=== PATIENT | female | born 1935 | race Caucasian/White ===

== ENCOUNTER 2017-11-04 20:24 | Emergency (ER) | payer MEDICARE, BC ==
[2017-11-04] MEDS ORDERED: SODIUM CHLORIDE 0.9% 500 ML IV STA (20:40)
[2017-11-04] MEDS ORDERED: DILTIAZEM 50 MG in SODIUM CHLORIDE 0.9% 40 ML IV STA (20:43)
--- NOTE | 2017-11-04 20:57 | ED ---
General Adult HPI - General Chief complaint: Arrhythmia/Palpitations Stated complaint: Afib Time Seen by Provider: 11/04/17 20:29 Source: patient, EMS, RN notes reviewed Mode of arrival: EMS Limitations: no limitations - History of Present Illness Initial comments: 82-year-old female with history of atrial fibrillation presents with generalized weakness and one episode of nausea and vomiting. She denies chest pain or shortness of breath. She is transported by EMS and is found be in atrial fibrillation with RVR. She states she had a pacemaker placed one to 2 months ago at [facility]. Her medications have recently been adjusted. She was previously on long-acting metoprolol and was switched to metoprolol tartrate 50 mg twice a day. She is currently on Coumadin. She has been taking her medications as prescribed. Patient denies diarrhea. Denies dysuria. Denies cough or fever. - Related Data Home Medications Medication Instructions Recorded Confirmed Atorvastatin [Lipitor] 40 mg PO HS 11/04/17 11/04/17 Digoxin [Lanoxin] 125 mcg PO DAILY 11/04/17 11/04/17 Diltiazem Cd [Cardizem Cd] 120 mg PO DAILY 11/04/17 11/04/17 Fenofibrate 54 mg PO DAILY 11/04/17 11/04/17 Furosemide [Lasix] 20 mg PO DAILY 11/04/17 11/04/17 Levothyroxine Sodium [Synthroid] 75 mcg PO DAILY 11/04/17 11/04/17 Metoprolol Tartrate [Lopressor] 50 mg PO BID 11/04/17 11/04/17 Quinapril HCl [Accupril] 20 mg PO DAILY 11/04/17 11/04/17 Spironolactone [Aldactone] 25 mg PO DAILY 11/04/17 11/04/17 Warfarin [Coumadin] 5 mg PO DAILY 11/04/17 11/04/17 metFORMIN HCL [Glucophage] 500 mg PO BID 11/04/17 11/04/17 Allergies Allergy/AdvReac Type Severity Reaction Status Date / Time No Known Allergies Allergy Verified 11/04/17 20:54 Review of Systems ROS Statement: Those systems with pertinent positive or pertinent negative responses have been documented in the HPI. ROS Other: All systems not noted in ROS Statement are negative. Past Medical History Past Medical History: Atrial Fibrillation, Diabetes Mellitus, Hypertension, Thyroid Disorder History of Any Multi-Drug Resistant Organisms: None Reported Past Surgical History: Pacemaker Past Psychological History: No Psychological Hx Reported Smoking Status: Never smoker Past Alcohol Use History: None Reported Past Drug Use History: None Reported General Exam Limitations: no limitations General appearance: alert, in no apparent distress Head exam: Present: atraumatic, normocephalic Eye exam: Present: normal appearance, PERRL, EOMI ENT exam: Present: normal exam Neck exam: Present: normal inspection. Absent: tenderness, meningismus Respiratory exam: Present: normal lung sounds bilaterally. Absent: respiratory distress Cardiovascular Exam: Present: tachycardia, irregular rhythm GI/Abdominal exam: Present: soft. Absent: distended, tenderness Extremities exam: Present: normal inspection, pedal edema (trace) Neurological exam: Present: alert, oriented X3, CN II-XII intact. Absent: motor sensory deficit Psychiatric exam: Present: normal affect, normal mood Skin exam: Present: warm, dry, intact. Absent: cyanosis, diaphoretic Course Vital Signs 11/04/17 11/04/17 11/04/17 20:38 21:22 22:19 Temperature 97.6 F Pulse Rate 154 H 150 H 136 H Pulse Rate [ 144 H [employer] ] Respiratory 22 20 18 Rate Blood Pressure 119/60 155/108 150/83 O2 Sat by Pulse 95 97 95 Oximetry 11/04/17 23:00 Temperature Pulse Rate 112 H Pulse Rate [ [employer] ] Respiratory 18 Rate Blood Pressure 97/67 O2 Sat by Pulse 96 Oximetry EKG Findings - EKG Comments: EKG Findings:: EKG: Atrial fibrillation with RVR, left axis deviation, left bundle branch block, ventricular rate of 149, QRS duration 152, QTC 500 Medical Decision Making - Medical Decision Making 82-year-old female presenting with nausea vomiting and generalized weakness. Found to be in A. fib with RVR. EKG shows left bundle branch block, this is discussed with ER physician at [facility], she does have history of left bundle branch block. She does have history of atrial fibrillation and had recent pacemaker placed at [facility]. She is started on IV Cardizem for rate control. Laboratory studies obtained. Patient has elevated white blood cell count of 14.3, hemoglobin is 12.8. INR is greater than 10 which is supratherapeutic. She is given IV vitamin K. Creatinine 1.9 with no known baseline. AST and ALT both significantly elevated at 2700 and 1800. Total bili is mildly elevated 1.9. Ultrasound is obtained, this shows normal common bile duct with no obstruction. There is mild gallbladder wall thickening with echogenic foci within the gallbladder, no stones. Ultrasound Mcintosh's is negative, there is no pericholecystic fluid. Transaminitis may be secondary to poor perfusion due to her atrial fibrillation with RVR. These levels be trended. Troponin is elevated at 0.109 which is likely secondary to demand ischemia and poor kidney function in the setting of elevated BUN/creatinine. 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 She may also require gastro-enterology for transaminitis. Diagnosis: Atrial fibrillation with RVR, transaminitis, supratherapeutic INR, troponin elevation. - Lab Data Result diagrams: 11/04/17 21:05 11/04/17 21:05 Lab Results 11/04/17 11/04/17 11/04/17 Range/Units 21:05 21:05 21:05 WBC 14.3 H (3.8-10.6) k/uL RBC 4.33 (3.80-5.40) m/uL Hgb 12.8 (11.4-16.0) gm/dL Hct 39.3 (34.0-46.0) % MCV 90.6 (80.0-100.0) fL MCH 29.5 (25.0-35.0) pg MCHC 32.6 (31.0-37.0) g/dL RDW 14.4 (11.5-15.5) % Plt Count 264 (150-450) k/uL Neutrophils % 81 % Lymphocytes % 10 % Monocytes % 8 % Eosinophils % 0 % Basophils % 0 % Neutrophils # 11.6 H (1.3-7.7) k/uL Lymphocytes # 1.4 (1.0-4.8) k/uL Monocytes # 1.1 H (0-1.0) k/uL Eosinophils # 0.0 (0-0.7) k/uL Basophils # 0.0 (0-0.2) k/uL PT (9.0-12.0) sec INR (<1.2) APTT (22.0-30.0) sec Sodium 137 (137-145) mmol/L Potassium 5.2 H (3.5-5.1) mmol/L Chloride 99 (98-107) mmol/L Carbon Dioxide 14 L (22-30) mmol/L Anion Gap 24 mmol/L BUN 79 H (7-17) mg/dL Creatinine 1.90 H (0.52-1.04) mg/dL Est GFR (CKD-EPI)AfAm 28 (>60 ml/min/1.73 sqM) Est GFR (CKD-EPI)NonAf 24 (>60 ml/min/1.73 sqM) Glucose 168 H (74-99) mg/dL Calcium 9.5 (8.4-10.2) mg/dL Magnesium 2.4 H (1.6-2.3) mg/dL Total Bilirubin 1.9 H (0.2-1.3) mg/dL AST 2717 H (14-36) U/L ALT 1816 H (9-52) U/L Alkaline Phosphatase 71 (38-126) U/L Total Creatine Kinase 52 (30-135) U/L CK-MB (CK-2) 1.6 (0.0-2.4) ng/mL CK-MB (CK-2) Rel Index 3.1 Troponin I 0.109 H* (0.000-0.034) ng/mL Total Protein 6.1 L (6.3-8.2) g/dL Albumin 3.6 (3.5-5.0) g/dL Lipase (23-300) U/L 11/04/17 11/04/17 Range/Units 21:05 21:05 WBC (3.8-10.6) k/uL RBC (3.80-5.40) m/uL Hgb (11.4-16.0) gm/dL Hct (34.0-46.0) % MCV (80.0-100.0) fL MCH (25.0-35.0) pg MCHC (31.0-37.0) g/dL RDW (11.5-15.5) % Plt Count (150-450) k/uL Neutrophils % % Lymphocytes % % Monocytes % % Eosinophils % % Basophils % % Neutrophils # (1.3-7.7) k/uL Lymphocytes # (1.0-4.8) k/uL Monocytes # (0-1.0) k/uL Eosinophils # (0-0.7) k/uL Basophils # (0-0.2) k/uL PT >130.0 H (9.0-12.0) sec INR >10.0 H* (<1.2) APTT 47.9 H (22.0-30.0) sec Sodium (137-145) mmol/L Potassium (3.5-5.1) mmol/L Chloride (98-107) mmol/L Carbon Dioxide (22-30) mmol/L Anion Gap mmol/L BUN (7-17) mg/dL Creatinine (0.52-1.04) mg/dL Est GFR (CKD-EPI)AfAm (>60 ml/min/1.73 sqM) Est GFR (CKD-EPI)NonAf (>60 ml/min/1.73 sqM) Glucose (74-99) mg/dL Calcium (8.4-10.2) mg/dL Magnesium (1.6-2.3) mg/dL Total Bilirubin (0.2-1.3) mg/dL AST (14-36) U/L ALT (9-52) U/L Alkaline Phosphatase (38-126) U/L Total Creatine Kinase (30-135) U/L CK-MB (CK-2) (0.0-2.4) ng/mL CK-MB (CK-2) Rel Index Troponin I (0.000-0.034) ng/mL Total Protein (6.3-8.2) g/dL Albumin (3.5-5.0) g/dL Lipase 109 (23-300) U/L Critical Care Time Critical Care Time: Yes Total Critical Care Time: 35 Disposition Clinical Impression: Atrial fibrillation with RVR, Transaminitis, Supratherapeutic INR Disposition: OTHER INSTITUTION NOT DEFINED Condition: Serious Is patient prescribed a controlled substance at d/c from ED?: No Referrals: Leann Soto MD [Primary Care Provider] - 1-2 days Time of Disposition: 23:40 - Out of Hospital Transfer - Req. Specs Out of Hospital Transfer - Requested Specifics: Other Emergency Center ( Transferred to [facility], accepting physician Dr. Avila)
[2017-11-04 21:13] LABS: Basophils % (A) 0 %; Eosinophils % (A) 0 %; HCT 39.3 % (34.0-46.0); HGB 12.8 gm/dL (11.4-16.0); Lymphocytes # (A) 1.4 k/uL (1.0-4.8); Lymphocytes % (A) 10 %; MCH 29.5 pg (25.0-35.0); MCHC 32.6 g/dL (31.0-37.0); MCV 90.6 fL (80.0-100.0); Mean Platelet Volume 9.2; Monocytes # (A) 1.1 k/uL (0-1.0); Monocytes % (A) 8 %; Neutrophils # (A) 11.6 k/uL (1.3-7.7); Neutrophils % (A) 81 %; Platelet Count 264 k/uL (150-450); RBC 4.33 m/uL (3.80-5.40); RDW 14.4 % (11.5-15.5); WBC 14.3 k/uL (3.8-10.6)
--- NOTE | 2017-11-04 21:21 | XR ---
EXAMINATION TYPE: XR chest 2V DATE OF EXAM: 11/04/2017 COMPARISON: NONE HISTORY: Irregular heart rate TECHNIQUE: Frontal and lateral views of the chest are obtained. FINDINGS: Heart is enlarged. There is prominent vascular congestion. There is blunting of costophren ic angles. There is left axillary pacemaker with the lead tip over the right ventricle. There are sebastien st leads. Thoracic aorta is atheromatous. IMPRESSION: Mild congestive heart failure. Small pleural effusions.
[2017-11-04 21:28] LABS: Partial Thromboplastin Time 47.9 sec (22.0-30.0)
[2017-11-04 21:30] LABS: Albumin 3.6 g/dL (3.5-5.0); Calcium 9.5 mg/dL (8.4-10.2); Magnesium 2.4 mg/dL (1.6-2.3); Potassium 5.2 mmol/L (3.5-5.1); Total Bilirubin 1.9 mg/dL (0.2-1.3); Total Protein 6.1 g/dL (6.3-8.2)
[2017-11-04 21:38] LABS: Creatine Kinase MB 1.6 ng/mL (0.0-2.4)
[2017-11-04 21:39] LABS: Prothrombin Time >130.0 sec (9.0-12.0)
[2017-11-04 21:40] LABS: INR >10.0 (<1.2)
[2017-11-04 21:46] LABS: Troponin I 0.109 ng/mL (0.000-0.034)
[2017-11-04] MEDS ORDERED: PHYTONADIONE 5 MG in SODIUM CHLORIDE 0.9% 50 ML IVPB STA (22:11)
[2017-11-04] MEDS ORDERED: DILTIAZEM 5 MG/1 ML (25ML VIAL) IV STA (22:15)
[2017-11-04 22:19] VITALS: RESP 18
--- NOTE | 2017-11-04 23:00 | US ---
EXAMINATION TYPE: US gallbladder DATE OF EXAM: 11/04/2017 COMPARISON: NONE CLINICAL HISTORY: Pain. Vomiting EXAM MEASUREMENTS: Liver Length: 14.9 cm Gallbladder Wall: 0.4 cm CBD: 0.4 cm Right Kidney: 9.0 x 4.8 x 4.2 cm Pancreas: visualized portions wnl, tail obscured by overlying midline bowel gas Liver: wnl Gallbladder: low level echoes seen within gallbladder, possible sludge, thickened wall at 0.4cm Evidence for sonographic Mcintosh's sign: no CBD: visualized portions wnl, limited by overlying bowel gas Right Kidney: visualized portions wnl, inferior pole limited by overlying bowel gas Right pleural effusion noted IMPRESSION: Mild gallbladder wall thickening with echogenic bile. No gallstones seen. No dilated duct s.
[2017-11-04] MEDS ORDERED: cefTRIAXone IN SWFI 1,000 MG/10 ML SYRINGE IVP STA (23:14)
[2017-11-05 00:01] VITALS: BP 110/70; PULSE 116
[2017-11-05 00:12] VITALS: TEMP 98
== END 2017-11-05 00:13 | disposition other institution (70) ==
LOC: EC 20:24
DX: I48.91 Unspecified atrial fibrillation (principal); R74.0 Nonspecific elevation of levels of transaminase and lactic acid dehydrogenase [LDH]; R79.1 Abnormal coagulation profile; I44.7 Left bundle-branch block, unspecified; I10 Essential (primary) hypertension; E11.9 Type 2 diabetes mellitus without complications; E07.9 Disorder of thyroid, unspecified; Z95.0 Presence of cardiac pacemaker; Z79.01 Long term (current) use of anticoagulants; Z79.84 Long term (current) use of oral hypoglycemic drugs; Z79.899 Other long term (current) drug therapy
CPT/HCPCS: 99291; 96365; 96366 ×2; 96368; 96375; 96376; 96361; 36415; 93005; 80053; 82550; 82553; 83690; 83735; 84484; 85025; 85610; 85730; 83520; 71046; 76705; J3430; J0696

== ENCOUNTER 2018-01-07 23:58 | Emergency (ER) | payer MEDICARE, BC ==
--- NOTE | 2018-01-08 11:22 | XR ---
EXAMINATION TYPE: XR wrist complete RT, XR hand complete RT DATE OF EXAM: 01/08/2018 CLINICAL HISTORY: Fall injury with pain. TECHNIQUE: Frontal, lateral and oblique images of the right hand and wrist are obtained. Additional fourth scaphoid view right wrist is acquired. COMPARISON: None FINDINGS: Demineralization is present which is noted to lower radiographic sensitivity There is no a cute fracture/dislocation evident in the right wrist. Radiocarpal joint space loss is seen. There is mild joint space loss and spurring at base of first metacarpal. The overlying soft tissue appears un remarkable. Images of right hand show demineralization. No acute fracture or dislocation is seen. There is degene rative change of the phalanges with joint space loss and marginal osteophytes most prominent in PIP a nd DIP joints. There is relative sparing of the MCPs. Overlying soft tissue is unremarkable. IMPRESSION: There is no acute fracture or dislocation in the right hand or wrist.
== END 2018-01-08 02:05 | disposition home or self-care (01) ==
LOC: EC 23:58
DX: M25.531 Pain in right wrist (principal); I48.91 Unspecified atrial fibrillation; Z95.0 Presence of cardiac pacemaker; W06.XXXA Fall from bed, initial encounter
CPT/HCPCS: 99283

== ENCOUNTER 2018-02-22 13:00 | Inpatient (IN) | payer MEDICARE, BC ==
[2018-02-22] MEDS ORDERED: FUROSEMIDE 10 MG/ML 4 ML VIAL IV STA (13:04)
--- NOTE | 2018-02-22 13:13 | ED ---
General Adult HPI - General Chief complaint: Shortness of Breath Stated complaint: OSMAN Time Seen by Provider: 02/22/18 13:00 Source: EMS, RN notes reviewed Mode of arrival: EMS Limitations: physical limitation - History of Present Illness Initial comments: This is an 82-year-old female presents emergency Department with a past medical history significant for atrial fibrillation a recent pacemaker placement and congestive heart failure. Patient comes in today because she's more short of breath with any kind of exertion. According to EMS she is in A. fib with rapid ventricular response. Patient states she has no chest pain or palpitations. Patient denies any recent fever chills or cough. Patient states her only symptom is that her shortness of breath is worsening and he is having some increased edema to her legs. Patient denies any abdominal pain patient denies nausea vomiting diarrhea. Patient denies headache patient denies numbness weakness. Patient denies lightheadedness dizziness or near syncopal episode. - Related Data Home Medications Medication Instructions Recorded Confirmed Levothyroxine Sodium [Synthroid] 75 mcg PO DAILY 11/04/17 02/22/18 Metoprolol Tartrate [Lopressor] 25 mg PO BID 11/04/17 02/22/18 Warfarin [Coumadin] 5 mg PO MOWEFR 11/04/17 02/22/18 Aspirin EC [Ecotrin Low Dose] 81 mg PO DAILY 02/22/18 02/22/18 Atorvastatin [Lipitor] 20 mg PO DAILY 02/22/18 02/22/18 Calcium Carb/Vitamin D3/Vit K1 2 tab PO DAILY 02/22/18 02/22/18 [Citracal Soft Chew] Diltiazem HCl 90 mg PO TID 02/22/18 02/22/18 Furosemide [Lasix] 40 mg PO BID 02/22/18 02/22/18 Potassium Chloride ER [K-Dur 20] 20 meq PO DAILY 02/22/18 02/22/18 Warfarin [Coumadin] 2.5 mg PO SUTUTHSA 02/22/18 02/22/18 Allergies Allergy/AdvReac Type Severity Reaction Status Date / Time No Known Allergies Allergy Verified 02/22/18 13:38 Review of Systems ROS Statement: Those systems with pertinent positive or pertinent negative responses have been documented in the HPI. ROS Other: All systems not noted in ROS Statement are negative. Past Medical History Past Medical History: Atrial Fibrillation, COPD, Diabetes Mellitus, Hypertension , Thyroid Disorder History of Any Multi-Drug Resistant Organisms: None Reported Past Surgical History: Pacemaker Past Psychological History: No Psychological Hx Reported Smoking Status: Never smoker Past Alcohol Use History: None Reported Past Drug Use History: None Reported General Exam - General Exam Comments Initial Comments: GENERAL: Patient is well-developed and well-nourished. Patient is nontoxic and well- hydrated and is in mild distress. ENT: Neck is soft and supple. No significant lymphadenopathy is noted. Oropharynx is clear. Moist mucous membranes. Neck has full range of motion without eliciting any pain. EYES: The sclera were anicteric and conjunctiva were pink and moist. Extraocular movements were intact and pupils were equal round and reactive to light. Eyelids were unremarkable. PULMONARY: Unlabored respirations. Good breath sounds bilaterally. No audible rales rhonchi or wheezing was noted. CARDIOVASCULAR: Patient is tachycardic and irregular. ABDOMEN: Soft and nontender with normal bowel sounds. No palpable organomegaly was noted. There is no palpable pulsatile mass. SKIN: Skin is clear with no lesions or rashes and otherwise unremarkable. NEUROLOGIC: Patient is alert and oriented x3. Cranial nerves II through XII are grossly intact. Motor and sensory are also intact. Normal speech, volume and content. Symmetrical smile. Cerebellar exam grossly intact. MUSCULOSKELETAL: Normal extremities with adequate strength and full range of motion. 2+ edema LYMPHATICS: No significant lymphadenopathy is noted PSYCHIATRIC: Normal psychiatric evaluation. Normal interpersonal interactions appears functionally intact in deals appropriately with others. No signs of depression. No signs of anxiety. Limitations: physical limitation Course Vital Signs 02/22/18 02/22/18 13:01 13:23 Temperature 98.7 F Pulse Rate 128 H 84 Respiratory 18 18 Rate Blood Pressure 106/91 O2 Sat by Pulse 94 L 92 L Oximetry Medical Decision Making - Medical Decision Making EKG shows atrial for ablation with rapid ventricular response at 123 bpm QRS is 148 QT interval 366 QTC is 523. Patient has a left bundle branch block. This was seen on old EKGs. Chest x-ray shows bilateral pleural effusions and pulmonary edema. Patient got Lasix nitro paste emergency department. Patient was also in A. fib with rapid ventricular response but at this time was at 108 beats a minute and so no medicines were given to slow down especially because of blood pressure was a little low. I spoke with the depression agreed to admit the patient admitted the patient to call cardiology I rita Lopez on the floor. - Lab Data Result diagrams: 02/22/18 13:14 02/22/18 13:14 Lab Results 02/22/18 02/22/18 02/22/18 Range/Units 13:14 13:14 13:14 WBC 13.3 H (3.8-10.6) k/uL RBC 4.44 (3.80-5.40) m/uL Hgb 12.0 (11.4-16.0) gm/dL Hct 38.3 (34.0-46.0) % MCV 86.2 (80.0-100.0) fL MCH 27.1 (25.0-35.0) pg MCHC 31.5 (31.0-37.0) g/dL RDW 15.9 H (11.5-15.5) % Plt Count 325 (150-450) k/uL Neutrophils % 75 % Lymphocytes % 17 % Monocytes % 6 % Eosinophils % 0 % Basophils % 1 % Neutrophils # 10.0 H (1.3-7.7) k/uL Lymphocytes # 2.2 (1.0-4.8) k/uL Monocytes # 0.7 (0-1.0) k/uL Eosinophils # 0.1 (0-0.7) k/uL Basophils # 0.1 (0-0.2) k/uL Hypochromasia Slight PT 39.8 H (9.0-12.0) sec INR 4.4 H (<1.2) APTT 32.2 H (22.0-30.0) sec Sodium (137-145) mmol/L Potassium (3.5-5.1) mmol/L Chloride (98-107) mmol/L Carbon Dioxide (22-30) mmol/L Anion Gap mmol/L BUN (7-17) mg/dL Creatinine (0.52-1.04) mg/dL Est GFR (CKD-EPI)AfAm (>60 ml/min/1.73 sqM) Est GFR (CKD-EPI)NonAf (>60 ml/min/1.73 sqM) Glucose (74-99) mg/dL Calcium (8.4-10.2) mg/dL Magnesium (1.6-2.3) mg/dL Total Bilirubin (0.2-1.3) mg/dL AST (14-36) U/L ALT (9-52) U/L Alkaline Phosphatase (38-126) U/L NT-Pro-B Natriuret Pep 6020 pg/mL Total Protein (6.3-8.2) g/dL Albumin (3.5-5.0) g/dL 02/22/18 Range/Units 13:14 WBC (3.8-10.6) k/uL RBC (3.80-5.40) m/uL Hgb (11.4-16.0) gm/dL Hct (34.0-46.0) % MCV (80.0-100.0) fL MCH (25.0-35.0) pg MCHC (31.0-37.0) g/dL RDW (11.5-15.5) % Plt Count (150-450) k/uL Neutrophils % % Lymphocytes % % Monocytes % % Eosinophils % % Basophils % % Neutrophils # (1.3-7.7) k/uL Lymphocytes # (1.0-4.8) k/uL Monocytes # (0-1.0) k/uL Eosinophils # (0-0.7) k/uL Basophils # (0-0.2) k/uL Hypochromasia PT (9.0-12.0) sec INR (<1.2) APTT (22.0-30.0) sec Sodium 139 (137-145) mmol/L Potassium 4.6 (3.5-5.1) mmol/L Chloride 101 (98-107) mmol/L Carbon Dioxide 29 (22-30) mmol/L Anion Gap 9 mmol/L BUN 30 H (7-17) mg/dL Creatinine 0.82 (0.52-1.04) mg/dL Est GFR (CKD-EPI)AfAm 76 (>60 ml/min/1.73 sqM) Est GFR (CKD-EPI)NonAf 66 (>60 ml/min/1.73 sqM) Glucose 173 H (74-99) mg/dL Calcium 9.5 (8.4-10.2) mg/dL Magnesium 1.9 (1.6-2.3) mg/dL Total Bilirubin 0.7 (0.2-1.3) mg/dL AST 34 (14-36) U/L ALT 30 (9-52) U/L Alkaline Phosphatase 92 (38-126) U/L NT-Pro-B Natriuret Pep pg/mL Total Protein 6.4 (6.3-8.2) g/dL Albumin 3.2 L (3.5-5.0) g/dL Critical Care Time Critical Care Time: Yes Total Critical Care Time: 35 Disposition Clinical Impression: Acute pulmonary edema Disposition: ADMITTED IP TO THIS HOSP Referrals: Leann Soto MD [Primary Care Provider] - 1-2 days Time of Disposition: 13:52
[2018-02-22 13:25] LABS: Basophils # (A) 0.1 k/uL (0-0.2); Basophils % (A) 1 %; Eosinophils # (A) 0.1 k/uL (0-0.7); Eosinophils % (A) 0 %; HCT 38.3 % (34.0-46.0); Hypochromasia Slight; Lymphocytes # (A) 2.2 k/uL (1.0-4.8); Lymphocytes % (A) 17 %; MCH 27.1 pg (25.0-35.0); MCHC 31.5 g/dL (31.0-37.0); MCV 86.2 fL (80.0-100.0); Mean Platelet Volume 8.4; Monocytes # (A) 0.7 k/uL (0-1.0); Monocytes % (A) 6 %; Neutrophils % (A) 75 %; Platelet Count 325 k/uL (150-450); RBC 4.44 m/uL (3.80-5.40); RDW 15.9 % (11.5-15.5); WBC 13.3 k/uL (3.8-10.6)
[2018-02-22 13:34] LABS: INR 4.4 (<1.2); Partial Thromboplastin Time 32.2 sec (22.0-30.0); Prothrombin Time 39.8 sec (9.0-12.0)
[2018-02-22 13:49] LABS: Albumin 3.2 g/dL (3.5-5.0); Calcium 9.5 mg/dL (8.4-10.2); Magnesium 1.9 mg/dL (1.6-2.3); Potassium 4.6 mmol/L (3.5-5.1); Total Bilirubin 0.7 mg/dL (0.2-1.3); Total Protein 6.4 g/dL (6.3-8.2)
[2018-02-22] MEDS ORDERED: NITROGLYCERIN OINT 1 INCH/GM PACKET TOPICAL STA (13:50)
[2018-02-22] MEDS ORDERED: ASPIRIN 325 MG TAB PO STA (13:52)
[2018-02-22] MEDS ORDERED: FUROSEMIDE 10 MG/ML 4 ML VIAL IV SCH (14:00)
--- NOTE | 2018-02-22 14:16 | XR ---
EXAMINATION TYPE: XR chest 2V DATE OF EXAM: 02/22/2018 HISTORY: difficulty breathing. REFERENCE: Previous study dated 11/04/2017. FINDINGS: There is a unipolar pacemaker place on the left. There are large, bilateral effusions. There is vascular congestion and interstitial change. Heart siz e is obscured. IMPRESSION: FINDINGS CONSISTENT WITH CONGESTIVE HEART FAILURE WITH CONCOMITANT BILATERAL EFFUSIONS.
[2018-02-22 14:23] LABS: Creatine Kinase MB 0.9 ng/mL (0.0-2.4)
[2018-02-22 14:24] LABS: Troponin I 0.059 ng/mL (0.000-0.034)
[2018-02-22] MEDS ORDERED: MELATONIN 3 MG TABLET PO PRN (16:14)
[2018-02-22] MEDS ORDERED: LORazepam 0.5 MG TAB PO PRN (16:14)
[2018-02-22] MEDS ORDERED: LACTULOSE 20 GM/30 ML CUP PO PRN (16:14)
[2018-02-22] MEDS ORDERED: MAGNESIUM HYDROXIDE 2,400 MG/10 ML CUP PO PRN (16:14)
[2018-02-22] MEDS ORDERED: ONDANSETRON 4 MG/2 ML VIAL IVP PRN (16:14)
[2018-02-22] MEDS ORDERED: NITROGLYCERIN OINT 1 INCH/GM PACKET TOPICAL SCH (18:00)
[2018-02-22 18:04] LABS: Glucose,Whole Blood 174 mg/dL (75-99)
[2018-02-22] MEDS: POTASSIUM CHLORIDE ER 20 MEQ TAB.ER PO SCH (18:27)
[2018-02-22] MEDS: DILTIAZEM ORAL 30 MG TAB PO SCH ×2 (18:27→21:06)
--- NOTE | 2018-02-22 21:01 | HP ---
HISTORY AND PHYSICAL DATE OF ADMISSION: 02/22/2018 DATE OF SERVICE: 02/22/2018 PRESENTING COMPLAINT: Short of breath. HISTORY OF PRESENTING COMPLAINT: A very pleasant, 82-year-old patient who follows with Dr. Leann Soto. The patient follows with Cardiology, Dr. Mccall. The patient not too long ago had a permanent pacemaker placed. Chronic stable medical conditions include diabetes, hypertension, hypothyroid. The patient about a month ago had a right wrist fracture for which she has a brace in place. Overnight the patient became short of breath, decided to come. Has got a cough, some clear sputum. No fever. No chills. No edema. Tired, run down. The patient is found to be in pulmonary edema, started on IV Lasix. Also found to be in atrial fibrillation with rapid ventricular rate. Cardiology was consulted for the same. REVIEW OF SYSTEMS: Constitutional: Tired. HEENT: Decreased hearing. Respiratory: As above. Cardiovascular: As above. Gastrointestinal: None. Genitourinary: None. Musculoskeletal: None. Dermatologic: None. Hematologic: None. Lymphatic: None. Psychiatry: None. Neurological: None. PAST MEDICAL HISTORY: Atrial fibrillation, diabetes, hypertension, hypothyroid. PAST SURGICAL HISTORY: Permanent pacemaker. SOCIAL HISTORY: Does not smoke or drink alcohol. Lives with sister. FAMILY HISTORY: Reviewed, noncontributory to presentation. HOME MEDICATIONS: 1. Coumadin 2.5 mg on Friday, Friday, , Friday and 5 mg on Friday, Friday and Friday. 2. Potassium 20 mEq a day. 3. Lopressor 25 p.o. b.i.d. 4. Synthroid 75 mcg a day. 5. Lasix 40 mg b.i.d. 6. Cardizem 90 mg t.i.d. 7. Citracal soft chew 2 tablets p.o. daily. 8. Lipitor 40 mg p.o. daily. 9. Aspirin 81 mg p.o. daily. ALLERGIES: None. PHYSICAL EXAMINATION: Temperature 98.7, pulse 128, respiratory 18, blood pressure 106/91, pulse ox 94 percent on room air. Repeat pulse ox 92 percent on 6L GENERAL APPEARANCE: Well built. BMI 30.8. Lying in bed, tired appearing. EYES: Pupils are equal. Conjunctivae normal. HEENT: External nose and ears normal. Oral cavity normal. NECK: JVD possibly raised. Mass not palpable. Respiratory effort increased. LUNGS: Diminished breath sounds, some crackles. CARDIOVASCULAR: Heart sounds regular, no edema. ABDOMEN: Soft, nontender. Liver and spleen not palpable LYMPHATICS: No lymph node palpable in neck or axilla. PSYCHIATRY: Alert and oriented x3. Mood and affect normal. NEUROLOGIC: Pupils equal. Cranial nerves grossly intact. Power and sensation grossly intact. INVESTIGATIONS: White count 13.3, hemoglobin 12. INR 4.4. Potassium 4.6, BUN 30, creatinine 0.82. Troponin 0.059. ProBNP 6020. Chest x-ray shows very significant pulmonary edema. Film was interpreted by me. EKG tracing interpreted by me shows atrial fibrillation with a rapid ventricular rate. ASSESSMENT: 1. Persistent atrial fibrillation with rapid ventricular rate, present on admission. Patient is chronically on Coumadin. 2. Acute congestive heart failure exacerbation with bilateral pulmonary edema, possibly precipitated by atrial fibrillation. 3. Hypothyroidism. 4. Hyperlipidemia. 5. Right wrist fracture, arm in a brace. 6. CODE STATUS IS FULL. PLAN: Patient started on IV Lasix. Will hold Coumadin today. Electrolytes will be followed closely. Cardiology was consulted. Care was discussed with the patient and family at the bedside. Questions were answered. MMODL / IJN: [id number] /
[2018-02-22] MEDS: FUROSEMIDE 10 MG/ML 4 ML VIAL IV SCH (21:06)
[2018-02-22] MEDS: METOPROLOL TARTRATE 25 MG TAB PO SCH (21:06)
[2018-02-22 21:19] LABS: Glucose,Whole Blood 141 mg/dL (75-99)
[2018-02-23 02:22] LABS: Calcium 9.2 mg/dL (8.4-10.2); Potassium 4.2 mmol/L (3.5-5.1)
[2018-02-23] MEDS: FUROSEMIDE 10 MG/ML 4 ML VIAL IV SCH ×2 (06:05→16:13)
[2018-02-23] MEDS: LEVOTHYROXINE 75 MCG TAB PO SCH (06:05)
[2018-02-23] MEDS: POTASSIUM CHLORIDE ER 20 MEQ TAB.ER PO SCH (07:42)
[2018-02-23] MEDS: DILTIAZEM ORAL 30 MG TAB PO SCH (07:42)
[2018-02-23] MEDS: ASPIRIN 81 MG PO SCH (07:42)
[2018-02-23] MEDS: CALCIUM CARB-VIT D 500MG-200UN 1 EACH TAB PO SCH (07:43)
[2018-02-23] MEDS: METOPROLOL TARTRATE 25 MG TAB PO SCH (07:43)
[2018-02-23] MEDS: ATORVASTATIN 20 MG TAB PO SCH (07:43)
[2018-02-23] MEDS ORDERED: ASPIRIN 325 MG TAB PO SCH (09:00)
[2018-02-23 11:18] LABS: Glucose,Whole Blood 226 mg/dL (75-99)
--- NOTE | 2018-02-23 12:13 | P.CNPUL ---
History of Present Illness Consult date: 02/23/18 Reason for consult: dyspnea, pleural effusion Chief complaint: Shortness of breath History of present illness: This is an 82-year-old female patient with known history of congestion heart failure and chronic atrial fibrillation and hypothyroidism and hypertension, presented to the hospital because of exertional dyspnea, orthopnea and increasing lower extremity edema. At the same time the patient was having palpitations and the patient was found to be in atrial fibrillation which is a chronic problem yet she was in rapid ventricular response. No angina. No pleurisy. No hemoptysis. No cough or sputum production. Chest x-ray showed large bilateral pleural effusions. She has a pacemaker in place. No fever. No chills. No impairment of the renal function. She was started on IV Lasix 60 mg every 8 hours and she is already feeling better. She is anticoagulated and her INR is supratherapeutic at 4.4. Renal function is stable. Blood sugars at 226. She is known to have diabetes mellitus. She does have also some degree of troponin leak with troponin levels of 0.09 and 0.08 respectively 2 yet she is free of any chest pain and she is free of any acute ischemic changes on EKG. ProBNP level is 6000. Review of Systems Constitutional: Reports fatigue, Reports weakness Eyes: denies blurred vision, denies bulging eye, denies decreased vision Ears: deny: decreased hearing, ear discharge, earache, tinnitus Ears, nose, mouth and throat: Denies headache, Denies sore throat Cardiovascular: Reports decreased exercise tolerance, Reports dyspnea on exertion, Reports edema, Reports irregular heart beat, Reports shortness of breath Respiratory: Reports dyspnea Gastrointestinal: Denies abdominal pain, Denies diarrhea, Denies nausea, Denies vomiting Genitourinary: Denies dysuria, Denies hematuria Menstruation: Reports as per HPI Musculoskeletal: Reports as per HPI Musculoskeletal: bilateral: ankle swelling, absent: ankle pain, ankle stiffness Integumentary: Denies pruritus, Denies rash Neurological: Denies numbness, Denies weakness Psychiatric: Reports as per HPI Endocrine: Reports as per HPI Hematologic/Lymphatic: Reports as per HPI Allergic/Immunologic: Reports as per HPI Past Medical History Past Medical History: Atrial Fibrillation, Diabetes Mellitus, Hypertension, Thyroid Disorder Additional Past Medical History / Comment(s): Congestive heart failure, pacemaker insertion, diabetes Melitus, hypertension and hypothyroid, chronic hypoxic respiratoprty failure and she is on home O2 4 liter/min, atrial fibrillation, UTI (recent) and she was treated with ABX History of Any Multi-Drug Resistant Organisms: None Reported Past Surgical History: Pacemaker Type of Cardiac Device: Unknown Device Placement Date:: September 2017 Past Psychological History: No Psychological Hx Reported Smoking Status: Never smoker Past Alcohol Use History: None Reported Past Drug Use History: None Reported - Past Family History Mother Family Medical History: Diabetes Mellitus, Renal Disease Father Additional Family Medical History / Comment(s): "Black lung and alcohol." Father worked in the [employer]. Medications and Allergies Home Medications Medication Instructions Recorded Confirmed Type Levothyroxine Sodium [Synthroid] 75 mcg PO DAILY 11/04/17 02/22/18 History Metoprolol Tartrate [Lopressor] 25 mg PO BID 11/04/17 02/22/18 History Warfarin [Coumadin] 5 mg PO MOWEFR 11/04/17 02/22/18 History Aspirin EC [Ecotrin Low Dose] 81 mg PO DAILY 02/22/18 02/22/18 History Atorvastatin [Lipitor] 20 mg PO DAILY 02/22/18 02/22/18 History Calcium Carb/Vitamin D3/Vit K1 2 tab PO DAILY 02/22/18 02/22/18 History [Citracal Soft Chew] Diltiazem HCl 90 mg PO TID 02/22/18 02/22/18 History Furosemide [Lasix] 40 mg PO BID 02/22/18 02/22/18 History Potassium Chloride ER [K-Dur 20] 20 meq PO DAILY 02/22/18 02/22/18 History Warfarin [Coumadin] 2.5 mg PO SUTUTHSA 02/22/18 02/22/18 History Allergies Allergy/AdvReac Type Severity Reaction Status Date / Time No Known Allergies Allergy Verified 02/22/18 13:38 Physical Exam Vitals: Vital Signs Temp Pulse Pulse Resp BP BP Pulse Ox 02/23/18 07:47 90 17 02/23/18 07:30 96.7 F L 90 17 109/75 96 02/23/18 04:00 96 18 129/68 92 L 02/23/18 00:00 97.3 F L 60 16 101/59 92 L 02/22/18 20:00 97.4 F L 91 18 117/64 95 02/22/18 18:14 90 17 02/22/18 17:52 97.9 F 90 17 105/66 02/22/18 17:13 98.3 F 57 L 18 141/91 93 L 02/22/18 13:23 84 18 106/91 92 L 02/22/18 13:01 98.7 F 128 H 18 94 L Intake and Output 02/22/18 02/23/18 02/23/18 22:59 06:59 14:59 Intake Total 250 118 Output Total 600 600 600 Balance -350 -600 -482 Intake: IV 10 Invasive Line 1 10 Oral 240 118 Output: Urine 600 600 600 Other: Voiding Method Bedside Commode Bedside Commode Bedside Commode # Voids 1 1 Weight 85.1 kg 79.2 kg Gen. appearance she is calm and comfortable likely distress. Communicating. No use of accessory muscles of breathing. Head exam was generally normal. There was no scleral icterus or corneal arcus. Mucous membranes were moist. Neck was supple and with jugular venous distension, thyromegaly, or carotid bruits. Carotids were easily palpable bilaterally. There was no adenopathy. The patient has positive jugular venous distention Lungs sounds are diminished bilaterally and there is dullness to percussion the mid in the lower lung carpenter. The pacemaker pocket can be felt over the left anterior chest area. Heart is irregular S1-S2 no significant murmurs appreciated. No radicular heave or thrill. Abdominal exam revealed normal bowel sounds. The abdomen was soft, non-tender, and without masses, organomegaly, or appreciable enlargement of the abdominal aorta. Extremities reveal +1 edema and there is a sinus or clubbing at this point in time. The legs are wrapped with Moy wraps. Neurologically awake and alert and there is no focal logical deficits. Examination of the skin revealed no evidence of significant rashes, suspicious appearing nevi or other concerning lesions. Results - Laboratory Findings CBC and BMP: 02/22/18 13:14 02/23/18 01:10 PT/INR, D-dimer PT 39.8 sec (9.0-12.0) H 02/22/18 13:14 INR 4.4 (<1.2) H 02/22/18 13:14 Abnormal lab findings: Abnormal Labs 09/09/18 09/09/18 09/09/18 13:14 13:14 13:14 WBC 13.3 H RDW 15.9 H Neutrophils # 10.0 H PT 39.8 H INR 4.4 H APTT 32.2 H BUN Glucose POC Glucose (mg/dL) Total Creatine Kinase 22 L Troponin I 0.059 H* Albumin 02/22/18 02/22/18 02/22/18 13:14 17:43 19:19 WBC RDW Neutrophils # PT INR APTT BUN 30 H Glucose 173 H POC Glucose (mg/dL) 174 H Total Creatine Kinase Troponin I 0.099 H* Albumin 3.2 L 02/22/18 02/23/18 02/23/18 21:17 01:10 01:10 WBC RDW Neutrophils # PT INR APTT BUN 29 H Glucose 125 H POC Glucose (mg/dL) 141 H Total Creatine Kinase Troponin I 0.085 H* Albumin - Diagnostic Findings Chest x-ray: image reviewed Assessment and Plan Plan: Assessment 1 acute exacerbation of chronic congestion heart failure, possibly systolic heart failure and echocardiogram is pending for now. Patient presented with signs of fluid overload, pulmonary edema, bilateral pleural effusion, lower extremity edema and elevated BNP levels. She is responding to diuretics 2 bilateral pleural effusion secondary to above 3 chronic hypoxic respiratory failure secondary to CHF. Underlying COPD is felt to be less likely 4 chronic atrial fibrillation with rapid ventricular response on admission, current rate is under better control and the patient on long-term and to coagulation with a supratherapeutic INR 5 troponin leak 6 hypothyroidism 7 diabetes mellitus 8 hyperlipidemia 9 previous pacemaker insertion Plan Hold Coumadin. Monitor PT/INR. Continue diuretics. Pleural effusions are large yet these are most likely attributed to congestion heart failure. Echo of the heart is pending. Meanwhile no plans for thoracentesis as long as the patient is responding. This may be a constellation of later stage of the pleural effusion cause ongoing symptoms. We'll continue to follow.
[2018-02-23] MEDS ORDERED: DILTIAZEM ORAL 30 MG TAB PO ONE (12:30)
--- NOTE | 2018-02-23 15:29 | CONS ---
CONSULTATION This is 82-year-old lady with a known history of chronic atrial fibrillation and permanent pacemaker that was placed in [facility]. 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 She came into the hospital with complaints of shortness of breath. She was found to be in atrial fibrillation which is not a new rhythm for her, but her rate was faster. After arrival she feels better. She denies any chest discomfort. Her breathing is easier. She is comfortable and resting at the time of my evaluation. She has underlying paced rhythm, but her rhythm when she came in was atrial fib with a moderate rate. This seems to have settled down and she is asymptomatic. PAST MEDICAL HISTORY: 1. Chronic atrial fib with sick sinus syndrome with a permanent pacemaker. 2. Type 2 diabetes mellitus. 3. Hypertension. 4. Hypothyroidism. 5. Status post permanent pacemaker placement in the past. SOCIAL HISTORY: Patient is not a smoker. Does not consume alcohol on a regular basis. MEDICATIONS: At home include Synthroid 75 mcg daily, Lopressor 25 mg b.i.d., Coumadin 5 mg and 2.5 mg alternating, aspirin 81 mg daily, atorvastatin 20 mg daily, diltiazem 90 mg t.i.d., Lasix 40 mg b.i.d., potassium supplements. ALLERGIES: None. EXAMINATION: On examination blood pressure is 110/70, pulse rate is about 70 per minute irregular. HEENT: Unremarkable. Fundus was not examined by me. Neck is supple. There is JVD of 1 cm. No carotid bruit. Heart exam reveals S1, S2 with irregular rhythm, short systolic murmur. Lungs reveal diminished air entry over both bases. Abdomen is soft, nontender. Lower extremities reveal diminished pulses, trace edema. Central nervous system is grossly within normal limits. LABORATORY DATA: Revealed a equivocal troponin of 0.09 and 0.05. She has a BNP of 6020. BUN, creatinine were normal. INR was 4.4. Coumadin has been held. IMPRESSION: 1. Exacerbation of systolic congestive heart failure. 2. Atrial fibrillation with moderate ventricular rate. 3. Sick sinus syndrome with underlying pacemaker performed at [facility]. 4. History of hypertension. 5. Diet-controlled diabetes mellitus. 6. Hyperlipidemia. RECOMMENDATIONS: I am recommending that we hold the Coumadin. Check an echocardiogram, perform a PT/INR and BNP in the morning. We will increase Lopressor to 50 mg t.i.d. and decrease the Cardizem to Cardizem CD 120 mg daily and based on clinical course I will make further recommendations. If she feels well, she may be discharged tomorrow. Discussed my thoughts in detail with the patient. Thank you very much for the consult. ELEN / FLASHN: [id number] /
[2018-02-23] MEDS: METOPROLOL TARTRATE 50 MG TAB PO SCH ×2 (16:09→21:04)
[2018-02-23] MEDS ORDERED: FUROSEMIDE 10 MG/ML 10 ML VIAL IV SCH (16:14)
[2018-02-23 16:25] LABS: Glucose,Whole Blood 159 mg/dL (75-99)
[2018-02-23] MEDS: FUROSEMIDE 10 MG/ML 10 ML VIAL IV SCH ×2 (16:28→23:06)
[2018-02-23] MEDS: INSULIN ASPART 100 UNIT/ML 1 ML 10 ML VIAL SQ SCH ×2 (17:17→21:04)
--- NOTE | 2018-02-23 19:35 | PN ---
PROGRESS NOTE DATE OF SERVICE: 02/23/18. PRESENTING COMPLAINT: Short of breath. INTERVAL HISTORY: This patient with a pacemaker, presented with atrial fibrillation, rapid ventricular rate and CHF there of. Breathing is better. Rate was better controlled. Cardiology did cut back on the patient's Cardizem and increase the beta vanessa. Rate is running about 80s now. REVIEW OF SYSTEMS: Done for constitutional, cardiovascular, GI, pulmonary; relevant findings as above. CURRENT MEDICATIONS: Reviewed that include Cardizem CD 120 mg a day and Lopressor 50 mg p.o. t.i.d. Coumadin has been held. PHYSICAL EXAMINATION: Temperature 97, pulse 72, respirations 16, blood pressure 105/70, pulse ox 90 percent on 6 L. GENERAL APPEARANCE: Sitting up tired, awake. EYES: Pupils equal. Conjunctivae normal. HEENT: External appearance of nose and ears normal. Oral cavity normal. NECK: Neck veins a bit prominent. Mass not palpable. RESPIRATORY: Effort increased. Lungs, decreased breath sounds. CARDIOVASCULAR: Heart sounds irregular, no edema. ABDOMEN: Soft, nontender. Liver and spleen not palpable. PSYCHIATRY: Alert and oriented x3. Mood and affect normal. INVESTIGATIONS: Potassium 4.2, BUN 29, creatinine 0.79. Troponin 0.085. Accu-Cheks 125, 226. ASSESSMENT: 1. Persistent atrial fibrillation with rapid ventricular rate, now better controlled. The patient is chronically on Coumadin. 2. Acute congestive heart failure exacerbation with bilateral pulmonary edema precipitated by atrial fibrillation, improving. 3. Acute hypoxic respiratory failure from pulmonary edema. 4. Hypothyroidism. 5. Hyperlipidemia. 6. Right wrist fracture, arm in a brace. 7. CODE STATUS is FULL. PLAN: The patient remains on IV Lasix. Will repeat a chest x-ray in the morning. Heart rate is better controlled. Care was discussed with the patient. Follow. MMODL / IJN: [id number] /
[2018-02-23 20:57] LABS: Glucose,Whole Blood 169 mg/dL (75-99)
[2018-02-24 05:48] LABS: Glucose,Whole Blood 119 mg/dL (75-99)
[2018-02-24] MEDS: INSULIN ASPART 100 UNIT/ML 1 ML 10 ML VIAL SQ SCH ×4 (06:23→21:23)
[2018-02-24] MEDS: LEVOTHYROXINE 75 MCG TAB PO SCH (06:24)
[2018-02-24 07:20] LABS: INR 4.5 (<1.2); Prothrombin Time 40.5 sec (9.0-12.0)
[2018-02-24 07:28] LABS: Calcium 8.9 mg/dL (8.4-10.2); Potassium 3.7 mmol/L (3.5-5.1)
--- NOTE | 2018-02-24 08:22 | XR ---
EXAMINATION TYPE: XR chest 2V DATE OF EXAM: 02/24/2018 COMPARISON: 02/22/2018 TECHNIQUE: PA and lateral views submitted. HISTORY: Shortness of breath FINDINGS: Cardiac device seen with bilateral consolidation and pleural effusion. Diffuse interstitial pattern. Biapical pleural thickening. IMPRESSION: 1. Bilateral consolidation and pleural effusion correlate for CHF.
[2018-02-24] MEDS: FUROSEMIDE 10 MG/ML 10 ML VIAL IV SCH ×3 (08:33→23:04)
[2018-02-24] MEDS: ASPIRIN 81 MG PO SCH (08:33)
[2018-02-24] MEDS: POTASSIUM CHLORIDE ER 20 MEQ TAB.ER PO SCH (08:33)
[2018-02-24] MEDS: ATORVASTATIN 20 MG TAB PO SCH (08:33)
[2018-02-24] MEDS: METOPROLOL TARTRATE 50 MG TAB PO SCH ×3 (08:34→21:23)
[2018-02-24] MEDS: CALCIUM CARB-VIT D 500MG-200UN 1 EACH TAB PO SCH (08:34)
[2018-02-24] MEDS: DILTIAZEM CD 120 MG CAP.ER.24H PO SCH (08:34)
--- NOTE | 2018-02-24 09:28 | ECHOF ---
Referral Reason:chf MEASUREMENTS -------- HEIGHT: 165.1 cm WEIGHT: 78.9 kg BP: 109/75 RVIDd: 2.6 cm (< 3.3) IVSd: 0.8 cm (0.6 - 1.1) LVIDd: 3.5 cm (3.9 - 5.3) LVPWd: 0.9 cm (0.6 - 1.1) IVSs: 1.0 cm LVIDs: 3.3 cm LVPWs: 1.2 cm LAESV Index (A-L): 49.52 ml/m Ao Diam: 2.7 cm (2.0 - 3.7) AV Cusp: 1.0 cm (1.5 - 2.6) LA Diam: 3.1 cm (2.7 - 3.8) MV E Leon: 1.43 m/s MV DecT: 202 ms MV A Leon: 0.00 m/s MV E/A Ratio: 767.32 RAP: 5.00 mmHg RVSP: 36.68 mmHg FINDINGS -------- Atrial fibrillation. This was a technically good study. The left ventricular size is normal. Left ventricular wall thickness is normal. There is severe g lobal hypokinesis of LV . Overall left ventricular systolic function is severely impaired with, an EF between 25 - 30 %. Paradoxical septal motion. The right ventricle is normal in size and function. LA is severely dilated >40 ml/m2 Electronic pacemaker lead seen in the right ventricular cavity. RA appears enlarged. There is mild to moderate aortic valve sclerosis. There is no evidence of aortic regurgitation. T here is no evidence of aortic stenosis. The mitral valve leaflets are mildly thickened. Mild mitral annular calcification present. Mild-t o-moderate mitral regurgitation is present. Mild tricuspid regurgitation present. There is borderline pulmonary hypertension. The right ventr icular systolic pressure, as measured by Doppler, is 36.68mmHg. Trace/mild (physiologic) pulmonic regurgitation. The aortic root size is normal. Normal inferior vena cava with normal inspiratory collapse consistent with estimated right atrial pre ssure of 5 mmHg. There is no pericardial effusion. CONCLUSIONS -------- 1. Atrial fibrillation. 2. This was a technically good study. 3. The left ventricular size is normal. 4. Left ventricular wall thickness is normal. 5. There is severe global hypokinesis of LV . 6. Overall left ventricular systolic function is severely impaired with, an EF between 25 - 30 %. 7. Paradoxical septal motion. 8. LA is severely dilated >40 ml/m2 9. Electronic pacemaker lead seen in the right ventricular cavity. 10. RA appears enlarged. 11. There is mild to moderate aortic valve sclerosis. 12. The mitral valve leaflets are mildly thickened. 13. Mild mitral annular calcification present. 14. Ftro-[id number] mitral regurgitation is present. 15. Mild tricuspid regurgitation present. 16. There is borderline pulmonary hypertension. 17. The right ventricular systolic pressure, as measured by Doppler, is 36.68mmHg. 18. Trace/mild (physiologic) pulmonic regurgitation. 19. The aortic root size is normal. 20. There is no pericardial effusion. PROFESSOR OF THEATER: Nuno Rodriguez RDCS
[2018-02-24 11:20] LABS: Glucose,Whole Blood 155 mg/dL (75-99)
--- NOTE | 2018-02-24 11:54 | P.PN ---
Subjective Progress Note Date: 02/24/18 Principal diagnosis: Acute of chronic congestive heart failure, systolic dysfunction, bilateral pleural effusions, right greater than the left. This is an 82-year-old female patient with known history of congestion heart failure and chronic atrial fibrillation and hypothyroidism and hypertension, presented to the hospital because of exertional dyspnea, orthopnea and increasing lower extremity edema. At the same time the patient was having palpitations and the patient was found to be in atrial fibrillation which is a chronic problem yet she was in rapid ventricular response. No angina. No pleurisy. No hemoptysis. No cough or sputum production. Chest x-ray showed large bilateral pleural effusions. She has a pacemaker in place. No fever. No chills. No impairment of the renal function. She was started on IV Lasix 60 mg every 8 hours and she is already feeling better. She is anticoagulated and her INR is supratherapeutic at 4.4. Renal function is stable. Blood sugars at 226. She is known to have diabetes mellitus. She does have also some degree of troponin leak with troponin levels of 0.09 and 0.08 respectively 2 yet she is free of any chest pain and she is free of any acute ischemic changes on EKG. ProBNP level is 6000. On 02/24/2018 patient seen in follow-up on selective care unit. She is resting comfortably in bed, she states her breathing has improved, she is diuresing, the on 5 L per high flow nasal cannula, with a pulse ox of 94%, remains in atrial fibrillation, with a rate of 105-110 BPM, she is afebrile, lung sounds diminished over right [place], with dullness to percussion, a few crackles on the left base. Edema is improving. He is down 6.6 kg since admission. Overall patient is doing better, repeat chest x-ray has been ordered, and shows diffuse interstitial edema, bilateral pleural effusions, right greater than the left, has been improvement in the aeration of the left base. We'll continue with IV diuretics, echocardiogram results have been noted, she has a severely impaired left ventricle systolic function with an EF of 25-30%. Objective - Vital Signs Vital signs: Vital Signs Temp 98.1 F 02/24/18 11:41 Pulse 105 H 02/24/18 11:42 Resp 16 02/24/18 11:42 BP 110/64 02/24/18 11:41 Pulse Ox 94 L 02/24/18 11:41 Intake & Output 02/23/18 02/24/18 02/24/18 18:59 06:59 18:59 Intake Total 1218 240 Output Total 1800 1300 1400 Balance -582 1300 -1160 Weight 79.2 kg 78.5 kg Intake: Oral 1218 240 Output: Urine 1800 1300 1400 Other: Voiding Method Bedside Commode Bedside Commode Bedside Commode # Voids 1 - Exam Gen. appearance she is calm and comfortable likely distress. Communicating. No use of accessory muscles of breathing. Head exam was generally normal. There was no scleral icterus or corneal arcus. Mucous membranes were moist. Neck was supple and with jugular venous distension, thyromegaly, or carotid bruits. Carotids were easily palpable bilaterally. There was no adenopathy. The patient has positive jugular venous distention Lungs sounds are diminished bilaterally and there is dullness to percussion the mid in the lower lung carpenter. The pacemaker pocket can be felt over the left anterior chest area. Heart is irregular S1-S2 no significant murmurs appreciated. No radicular heave or thrill. Abdominal exam revealed normal bowel sounds. The abdomen was soft, non-tender, and without masses, organomegaly, or appreciable enlargement of the abdominal aorta. Extremities reveal +1 edema and there is a sinus or clubbing at this point in time. The legs are wrapped with Moy wraps. Neurologically awake and alert and there is no focal logical deficits. Examination of the skin revealed no evidence of significant rashes, suspicious appearing nevi or other concerning lesions. - Labs CBC & Chem 7: 02/22/18 13:14 02/24/18 06:30 Labs: Abnormal Lab Results - Last 24 Hours (Table) 02/23/18 02/23/18 02/24/18 Range/Units 16:13 20:54 05:47 PT (9.0-12.0) sec INR (<1.2) Carbon Dioxide (22-30) mmol/L BUN (7-17) mg/dL Glucose (74-99) mg/dL POC Glucose (mg/dL) 159 H 169 H 119 H (75-99) mg/dL 02/24/18 02/24/18 02/24/18 Range/Units 06:30 06:30 11:18 PT 40.5 H (9.0-12.0) sec INR 4.5 H (<1.2) Carbon Dioxide 34 H (22-30) mmol/L BUN 26 H (7-17) mg/dL Glucose 121 H (74-99) mg/dL POC Glucose (mg/dL) 155 H (75-99) mg/dL Microbiology - Last 24 Hours (Table) 02/22/18 13:19 Blood Culture - Preliminary Blood No Growth after 24 hours Assessment and Plan Plan: Assessment: 1 acute exacerbation of chronic congestion heart failure, with systolic dysfunction, with severely impaired left ventricular systolic function with EF of 25-30%. Patient presented with signs of fluid overload, pulmonary edema, bilateral pleural effusion, lower extremity edema and elevated BNP levels. She is responding to diuretics 2 bilateral pleural effusion secondary to above 3 chronic hypoxic respiratory failure secondary to CHF. Underlying COPD is felt to be less likely 4 chronic atrial fibrillation with rapid ventricular response on admission, current rate is under better control and the patient on long-term and to coagulation with a supratherapeutic INR 5 troponin leak 6 hypothyroidism 7 diabetes mellitus 8 hyperlipidemia 9 previous pacemaker insertion Plan Today's chest x-ray has been reviewed, persistent interstitial edema, and bilateral pleural effusions, there has been slight improvement in aeration of the left base. Continue diuretics, INR remains supratherapeutic at 4.5, Coumadin remains on hold, renal profile maintenance stable, overall breathing better. No chest pain. Lower extremity edema is improving. I performed a history & physical examination of the patient and discussed their management with my nurse practitioner, Kelsea Diaz. I reviewed the nurse practitioner's note and agree with the documented findings and plan of care. Lung sounds are diminished at the bases, with dullness to percussion right greater than the left, and some limited crackles at the left base. The findings and the impression was discussed with the patient. I attest to the documentation by the nurse practitioner. Time with Patient: Less than 30
[2018-02-24 13:24] VITALS: BMI 28.8
[2018-02-24] MEDS ORDERED: POTASSIUM CHLORIDE ER 20 MEQ TAB.ER PO STA (14:35)
[2018-02-24 16:14] LABS: Glucose,Whole Blood 138 mg/dL (75-99)
[2018-02-24 16:16] LABS: Hemoglobin A1C 7.2 % (4.0-6.0)
--- NOTE | 2018-02-24 17:09 | PN ---
PROGRESS NOTE Mrs. Ward is a lady with an ejection fraction in the range of 30% or so. She has had a pacemaker placed by Dr. Carlin and his associates in [facility]. She came in with congestive heart failure. She is improving clinically. She denies chest pain. Stable functional capacity. Her breathing is also improved. Vital signs are stable. JVD is 1 cm. No carotid bruit. S1-S2 is heard normally. Short systolic murmur noted. Lungs are clear. Abdomen and lower extremity exam is unchanged. Plan is to continue IV Lasix for 1 more day and probably discharge her tomorrow and she is advised to follow up with her buyers' agent and have her pacemaker checked as an outpatient as well. MMODL / IJN: [id number] /
--- NOTE | 2018-02-24 20:30 | PN ---
PROGRESS NOTE DATE OF SERVICE: 02/24/2018 PRESENT COMPLAINT: Short of breath. INTERVAL HISTORY: The patient has a pacemaker put in by Dr. Mccall, presented with atrial fibrillation, rapid ventricular rate and CHF. Breathing is improving. A bit tired, has been up to the bathroom, feeling better. No chest pain. The patient is on IV Lasix. Heart rate controlled. REVIEW OF SYSTEMS: Done for constitutional, cardiovascular, GI, pulmonary; relevant findings as above. CURRENT MEDICATIONS: Reviewed that include: 1. Cardizem CD 120 mg a day. 2. Lasix 60 mg IV q.8h and. 3. Lopressor 50 mg t.i.d. EXAMINATION: Temperature 98.1, pulse 105, respirations 16, blood pressure 110/64, pulse ox 94% on 5L. GENERAL: Sitting up, tired, awake. EYES: Pupils equal. Conjunctivae normal. HEENT: External nose and ears normal. Oral cavity normal. NECK: JVD. Prominent mass not palpable. RESPIRATORY: Effort increased. LUNGS: Decreased breath sounds. CARDIOVASCULAR: Heart sounds irregular. No edema. ABDOMEN: Soft, nontender. Liver and spleen not palpable. PSYCHIATRY: Alert and oriented x3. Mood and affect normal. INVESTIGATIONS: Potassium 3.7, BUN 26, creatinine 0.92. Accu-Cheks are noted. INR is 4.5. ASSESSMENT: 1. Persistent atrial fibrillation with rapid ventricular rate on presentation, now better controlled, chronically on Coumadin. 2. Coumadin monitoring. 3. Acute congestive heart failure exacerbation with bilateral pulmonary edema, presented with atrial fibrillation, still appearing to be wet on the x-ray. 4. Acute hypoxic respiratory failure from pulmonary edema. Patient is also on 4-5L of oxygen. 5. Hypothyroidism. 6. Hyperlipidemia. 7. Right wrist fracture, arm in a support. 8. CODE STATUS is FULL. 9. Chronic hypoxic respiratory failure. Patient on home oxygen 4L. PLAN: Overall, patient is doing better, but still requiring IV Lasix. Continue with the same. The patient is responding to the same. Coumadin continues to be held. Repeat INR tomorrow. MMODL / IJN: [id number] /
[2018-02-24 20:54] LABS: Glucose,Whole Blood 209 mg/dL (75-99)
[2018-02-25 05:58] LABS: Glucose,Whole Blood 113 mg/dL (75-99)
[2018-02-25] MEDS: INSULIN ASPART 100 UNIT/ML 1 ML 10 ML VIAL SQ SCH ×4 (06:26→20:47)
[2018-02-25 06:42] LABS: Calcium 8.9 mg/dL (8.4-10.2); Potassium 3.7 mmol/L (3.5-5.1)
[2018-02-25] MEDS: LEVOTHYROXINE 75 MCG TAB PO SCH (06:44)
[2018-02-25] MEDS ORDERED: METOPROLOL TARTRATE 25 MG TAB PO SCH (09:08)
[2018-02-25] MEDS: FUROSEMIDE 10 MG/ML 10 ML VIAL IV SCH (09:12)
[2018-02-25] MEDS: METOPROLOL TARTRATE 25 MG TAB PO SCH ×4 (09:58→21:49)
[2018-02-25] MEDS: FUROSEMIDE 20 MG TAB PO SCH ×2 (09:58→16:39)
[2018-02-25] MEDS: CALCIUM CARB-VIT D 500MG-200UN 1 EACH TAB PO SCH (09:58)
[2018-02-25] MEDS: POTASSIUM CHLORIDE ER 20 MEQ TAB.ER PO SCH (09:59)
[2018-02-25] MEDS: ATORVASTATIN 20 MG TAB PO SCH (09:59)
[2018-02-25] MEDS: ASPIRIN 81 MG PO SCH (09:59)
[2018-02-25] MEDS: DILTIAZEM CD 120 MG CAP.ER.24H PO SCH (10:09)
[2018-02-25] MEDS: METOPROLOL TARTRATE 50 MG TAB PO SCH (10:09)
--- NOTE | 2018-02-25 10:52 | P.PN ---
Subjective Progress Note Date: 02/25/18 Principal diagnosis: Acute on chronic congestive heart failure, systolic dysfunction, bilateral pleural effusions, right greater than left. This is an 82-year-old female patient with known history of congestion heart failure and chronic atrial fibrillation and hypothyroidism and hypertension, presented to the hospital because of exertional dyspnea, orthopnea and increasing lower extremity edema. At the same time the patient was having palpitations and the patient was found to be in atrial fibrillation which is a chronic problem yet she was in rapid ventricular response. No angina. No pleurisy. No hemoptysis. No cough or sputum production. Chest x-ray showed large bilateral pleural effusions. She has a pacemaker in place. No fever. No chills. No impairment of the renal function. She was started on IV Lasix 60 mg every 8 hours and she is already feeling better. She is anticoagulated and her INR is supratherapeutic at 4.4. Renal function is stable. Blood sugars at 226. She is known to have diabetes mellitus. She does have also some degree of troponin leak with troponin levels of 0.09 and 0.08 respectively 2 yet she is free of any chest pain and she is free of any acute ischemic changes on EKG. ProBNP level is 6000. On 02/24/2018 patient seen in follow-up on selective care unit. She is resting comfortably in bed, she states her breathing has improved, she is diuresing, the on 5 L per high flow nasal cannula, with a pulse ox of 94%, remains in atrial fibrillation, with a rate of 105-110 BPM, she is afebrile, lung sounds diminished over right East, with dullness to percussion, a few crackles on the left base. Edema is improving. He is down 6.6 kg since admission. Overall patient is doing better, repeat chest x-ray has been ordered, and shows diffuse interstitial edema, bilateral pleural effusions, right greater than the left, has been improvement in the aeration of the left base. We'll continue with IV diuretics, echocardiogram results have been noted, she has a severely impaired left ventricle systolic function with an EF of 25-30%. The patient was seen again today 02/25/2018 in follow-up on the selective care unit. She is currently awake and alert and in no acute distress. She is breathing quite a lot better today as compared to yesterday. She is maintaining good O2 saturations in the mid 90s on 4 L/m per nasal cannula. She' s afebrile. Blood culture reveals no growth to date. Creatinine 0.97. She is on oral diuretics 60 mg twice a day of Lasix. She remains on negative balance. She is down another kilogram. Objective - Vital Signs Vital signs: Vital Signs Temp 97.6 F 02/25/18 08:00 Pulse 111 H 02/25/18 08:00 Resp 19 02/25/18 08:00 BP 113/61 02/25/18 08:00 Pulse Ox 96 02/25/18 08:00 Intake & Output 02/24/18 02/25/18 02/25/18 18:59 06:59 18:59 Intake Total 720 240 Output Total 1999 1400 Balance -1280 -1400 240 Weight 78.5 kg 77.2 kg Intake: Oral 720 240 Output: Urine 1999 1400 Other: Voiding Method Bedside Commode Bedside Commode Bedside Commode # Voids 1 - Exam Gen. appearance she is calm and comfortable likely distress. Communicating. No use of accessory muscles of breathing. Head exam was generally normal. There was no scleral icterus or corneal arcus. Mucous membranes were moist. Neck was supple and with jugular venous distension, thyromegaly, or carotid bruits. Carotids were easily palpable bilaterally. There was no adenopathy. The patient has positive jugular venous distention Lungs sounds are diminished bilaterally and there is dullness to percussion the mid in the lower lung carpenter. The pacemaker pocket can be felt over the left anterior chest area. Heart is irregular S1-S2 no significant murmurs appreciated. No radicular heave or thrill. Abdominal exam revealed normal bowel sounds. The abdomen was soft, non-tender, and without masses, organomegaly, or appreciable enlargement of the abdominal aorta. Extremities reveal +1 edema and there is a sinus or clubbing at this point in time. The legs are wrapped with Moy wraps. Neurologically awake and alert and there is no focal logical deficits. Examination of the skin revealed no evidence of significant rashes, suspicious appearing nevi or other concerning lesions. - Labs CBC & Chem 7: 02/22/18 13:14 02/25/18 06:03 Labs: Abnormal Lab Results - Last 24 Hours (Table) 02/24/18 02/24/18 02/24/18 Range/Units 06:30 11:18 16:11 Carbon Dioxide (22-30) mmol/L BUN (7-17) mg/dL Glucose (74-99) mg/dL POC Glucose (mg/dL) 155 H 138 H (75-99) mg/dL Hemoglobin A1c 7.2 H (4.0-6.0) % 02/24/18 02/25/18 02/25/18 Range/Units 20:53 05:56 06:03 Carbon Dioxide 32 H (22-30) mmol/L BUN 30 H (7-17) mg/dL Glucose 116 H (74-99) mg/dL POC Glucose (mg/dL) 209 H 113 H (75-99) mg/dL Hemoglobin A1c (4.0-6.0) % Microbiology - Last 24 Hours (Table) 02/22/18 13:19 Blood Culture - Preliminary Blood No Growth after 48 hours Assessment and Plan Assessment: Assessment: 1 acute exacerbation of chronic congestion heart failure, with systolic dysfunction, with severely impaired left ventricular systolic function with EF of 25-30%. Patient presented with signs of fluid overload, pulmonary edema, bilateral pleural effusion, lower extremity edema and elevated BNP levels. She is responding to diuretics 2 bilateral pleural effusion secondary to above 3 chronic hypoxic respiratory failure secondary to CHF. Underlying COPD is felt to be less likely 4 chronic atrial fibrillation with rapid ventricular response on admission, current rate is under better control and the patient on long-term and to coagulation with a supratherapeutic INR 5 troponin leak 6 hypothyroidism 7 diabetes mellitus 8 hyperlipidemia 9 previous pacemaker insertion Plan The patient is seen again today by Dr. Hunt. She is improved. She continues with some crackles in the bilateral bases. Remains on oral diuretics now. Creatinine is stable. She is stable from the pulmonary standpoint. We' ll see the patient on as-needed basis. I, the cosigning physician, performed a history & physical examination of the patient. Lungs sounds basilar crackles. Maintaining good O2 saturations in the 90s on 4 L/m per nasal cannula. I discussed the assessment and plan of care with my nurse practitioner, Keturah Dobbins. I attest to the above note as dictated by her.
[2018-02-25 11:29] LABS: Glucose,Whole Blood 221 mg/dL (75-99)
--- NOTE | 2018-02-25 12:25 | PN ---
PROGRESS NOTE Mrs. Ward is feeling better today. Her breathing is easier. Denies chest pain. Stable and improved functional capacity. Physical exam revealed that vital signs are normal. JVD is less apparent. S1, S2 heard normally, short systolic murmur noted. Lungs are clearer. Abdomen and lower extremity exam unchanged. Plan is to switch her IV to oral Lasix, increase activity, increase Lopressor, discontinue Cardizem and discharge her so she can follow up with her institutional aide. MMODL / IJN: [id number] /
[2018-02-25 16:37] LABS: Glucose,Whole Blood 96 mg/dL (75-99)
--- NOTE | 2018-02-25 20:14 | PN ---
PROGRESS NOTE DATE OF SERVICE: February 25, 2018. PRESENT COMPLAINT: Tired. INTERVAL HISTORY: This patient has a pacemaker put in by Dr. Gusman who presented with atrial fibrillation, rapid ventricular rate and CHF. Breathing is getting better. Remains in negative fluid balance. Getting quite close to her baseline. Did tolerate a diet. REVIEW OF SYSTEMS: Done for constitutional, cardiovascular, GI, pulmonary and relevant findings as above. I's and O's did show further negative fluid balance. Review of systems done for constitutional, cardiovascular, GI, pulmonary; relevant findings as above. CURRENT MEDICATIONS: Reviewed. The patient did get a dose of IV Lasix this morning, then switched to p.o. Lasix. Lopressor 25 p.o. t.i.d. EXAMINATION: VITAL SIGNS: Temperature 97.6, pulse 111, respiration 19, blood pressure 113/61, pulse ox 96 percent on 4 L. GENERAL APPEARANCE: Sitting up, tired. Eyes: Pupils equal. Conjunctivae normal. HEENT: External appearance of nose and ears normal. Oral cavity normal. NECK: JVD not raised. Mass not palpable. RESPIRATORY: Effort increased. LUNGS: Decreased breath sounds. CARDIOVASCULAR: Heart sounds irregular. Decreased edema. ABDOMEN: Soft, nontender. Liver and spleen not palpable. PSYCHIATRY: Alert and oriented x3. Mood and affect normal. INVESTIGATIONS: Potassium 3.7, BUN 30, creatinine 0.97. Accu-Cheks are noted. ASSESSMENT: 1. Persistent atrial fibrillation with rapid ventricular rate on presentation, now better controlled, chronically on Coumadin. 2. Coumadin monitoring. 3. Acute congestive heart failure exacerbation with bilateral pulmonary edema precipitated by atrial fibrillation. Clinically looking better. 4. Acute hypoxic respiratory failure from pulmonary edema. 5. Chronic hypoxic respiratory failure. Patient is on home oxygen 4 L. 6. Hypothyroidism. 7. Hyperlipidemia. 8. Right wrist fracture with support. 9. CODE STATUS is full. PLAN: Continue current medication and treatment plan. Care was discussed with the patient. Also discussed with Dr. Jean Baptiste. Hopefully patient can be discharged tomorrow. Check INR in the morning. MMODL / IJN: [id number] /
[2018-02-25 20:35] LABS: Glucose,Whole Blood 145 mg/dL (75-99)
[2018-02-26 06:04] LABS: Glucose,Whole Blood 133 mg/dL (75-99)
[2018-02-26] MEDS: LEVOTHYROXINE 75 MCG TAB PO SCH (06:59)
[2018-02-26] MEDS: INSULIN ASPART 100 UNIT/ML 1 ML 10 ML VIAL SQ SCH ×2 (06:59→12:02)
[2018-02-26 07:02] LABS: Calcium 8.8 mg/dL (8.4-10.2); Potassium 3.8 mmol/L (3.5-5.1)
[2018-02-26 07:09] LABS: INR 2.1 (<1.2); Prothrombin Time 18.9 sec (9.0-12.0)
[2018-02-26 08:16] VITALS: RESP 18
[2018-02-26] MEDS: POTASSIUM CHLORIDE ER 20 MEQ TAB.ER PO SCH (08:19)
[2018-02-26] MEDS: METOPROLOL TARTRATE 25 MG TAB PO SCH (08:19)
[2018-02-26] MEDS: FUROSEMIDE 20 MG TAB PO SCH (08:19)
[2018-02-26] MEDS: CALCIUM CARB-VIT D 500MG-200UN 1 EACH TAB PO SCH (08:19)
[2018-02-26] MEDS: ATORVASTATIN 20 MG TAB PO SCH (08:19)
[2018-02-26] MEDS: ASPIRIN 81 MG PO SCH (08:19)
[2018-02-26 11:24] LABS: Glucose,Whole Blood 167 mg/dL (75-99)
[2018-02-26 11:37] VITALS: BP 108/74; PULSE 102; TEMP 97.4
--- NOTE | 2018-02-26 12:30 | P.PN ---
Subjective Progress Note Date: 02/26/18 Principal diagnosis: Acute on chronic congestive heart failure, systolic dysfunction, bilateral pleural effusions, right greater than left. This is an 82-year-old female patient with known history of congestion heart failure and chronic atrial fibrillation and hypothyroidism and hypertension, presented to the hospital because of exertional dyspnea, orthopnea and increasing lower extremity edema. At the same time the patient was having palpitations and the patient was found to be in atrial fibrillation which is a chronic problem yet she was in rapid ventricular response. No angina. No pleurisy. No hemoptysis. No cough or sputum production. Chest x-ray showed large bilateral pleural effusions. She has a pacemaker in place. No fever. No chills. No impairment of the renal function. She was started on IV Lasix 60 mg every 8 hours and she is already feeling better. She is anticoagulated and her INR is supratherapeutic at 4.4. Renal function is stable. Blood sugars at 226. She is known to have diabetes mellitus. She does have also some degree of troponin leak with troponin levels of 0.09 and 0.08 respectively 2 yet she is free of any chest pain and she is free of any acute ischemic changes on EKG. ProBNP level is 6000. On 02/24/2018 patient seen in follow-up on selective care unit. She is resting comfortably in bed, she states her breathing has improved, she is diuresing, the on 5 L per high flow nasal cannula, with a pulse ox of 94%, remains in atrial fibrillation, with a rate of 105-110 BPM, she is afebrile, lung sounds diminished over right East, with dullness to percussion, a few crackles on the left base. Edema is improving. He is down 6.6 kg since admission. Overall patient is doing better, repeat chest x-ray has been ordered, and shows diffuse interstitial edema, bilateral pleural effusions, right greater than the left, has been improvement in the aeration of the left base. We'll continue with IV diuretics, echocardiogram results have been noted, she has a severely impaired left ventricle systolic function with an EF of 25-30%. The patient was seen again today 02/25/2018 in follow-up on the selective care unit. She is currently awake and alert and in no acute distress. She is breathing quite a lot better today as compared to yesterday. She is maintaining good O2 saturations in the mid 90s on 4 L/m per nasal cannula. She' s afebrile. Blood culture reveals no growth to date. Creatinine 0.97. She is on oral diuretics 60 mg twice a day of Lasix. She remains on negative balance. She is down another kilogram. The patient is seen again today 02/26/2018 in follow-up on the selective care unit. She is awake and alert in no acute distress. She is currently up in a chair at the bedside. She is breathing better today as compared to yesterday. She is maintaining good O2 saturations in the high 90s on 4 L/m per nasal cannula. She's been afebrile. Hemodynamically stable. She is currently in a negative balance. Creatinine 0.82. INR 2.1. Objective - Vital Signs Vital signs: Vital Signs Temp 97.4 F L 02/26/18 11:36 Pulse 102 H 02/26/18 11:37 Resp 18 02/26/18 11:37 BP 108/74 02/26/18 11:36 Pulse Ox 99 02/26/18 11:36 Intake & Output 02/25/18 02/26/18 02/26/18 18:59 06:59 18:59 Intake Total 720 240 Output Total 800 1100 Balance -80 -1100 240 Weight 77.6 kg Intake: Oral 720 240 Output: Urine 800 1100 Other: Voiding Method Bedside Commode Bedside Commode # Voids 1 - Exam Gen. appearance she is calm and comfortable likely distress. Communicating. No use of accessory muscles of breathing. Head exam was generally normal. There was no scleral icterus or corneal arcus. Mucous membranes were moist. Neck was supple and with jugular venous distension, thyromegaly, or carotid bruits. Carotids were easily palpable bilaterally. There was no adenopathy. The patient has positive jugular venous distention Lungs sounds are diminished bilaterally and there is dullness to percussion the mid in the lower lung carpenter. The pacemaker pocket can be felt over the left anterior chest area. Heart is irregular S1-S2 no significant murmurs appreciated. No radicular heave or thrill. Abdominal exam revealed normal bowel sounds. The abdomen was soft, non-tender, and without masses, organomegaly, or appreciable enlargement of the abdominal aorta. Extremities reveal +1 edema and there is a sinus or clubbing at this point in time. The legs are wrapped with Moy wraps. Neurologically awake and alert and there is no focal logical deficits. Examination of the skin revealed no evidence of significant rashes, suspicious appearing nevi or other concerning lesions. - Labs CBC & Chem 7: 02/22/18 13:14 02/26/18 06:22 Labs: Abnormal Lab Results - Last 24 Hours (Table) 02/25/18 02/26/18 02/26/18 Range/Units 20:25 06:03 06:22 PT (9.0-12.0) sec INR (<1.2) Carbon Dioxide 34 H (22-30) mmol/L BUN 29 H (7-17) mg/dL Glucose 128 H (74-99) mg/dL POC Glucose (mg/dL) 145 H 133 H (75-99) mg/dL 02/26/18 02/26/18 Range/Units 06:22 11:19 PT 18.9 H (9.0-12.0) sec INR 2.1 H (<1.2) Carbon Dioxide (22-30) mmol/L BUN (7-17) mg/dL Glucose (74-99) mg/dL POC Glucose (mg/dL) 167 H (75-99) mg/dL Microbiology - Last 24 Hours (Table) 02/22/18 13:19 Blood Culture - Preliminary Blood No Growth after 72 hours Assessment and Plan Assessment: Assessment: 1 acute exacerbation of chronic congestion heart failure, with systolic dysfunction, with severely impaired left ventricular systolic function with EF of 25-30%. Patient presented with signs of fluid overload, pulmonary edema, bilateral pleural effusion, lower extremity edema and elevated BNP levels. She is responding to diuretics 2 bilateral pleural effusion secondary to above 3 chronic hypoxic respiratory failure secondary to CHF. Underlying COPD is felt to be less likely 4 chronic atrial fibrillation with rapid ventricular response on admission, current rate is under better control and the patient on long-term and to coagulation with a supratherapeutic INR 5 troponin leak 6 hypothyroidism 7 diabetes mellitus 8 hyperlipidemia 9 previous pacemaker insertion Plan The patient is seen again today by Dr. Hunt. She is stable from the pulmonary standpoint. We'll see the patient on as-needed basis. I, the cosigning physician, performed a history & physical examination of the patient. Lungs sounds basilar crackles. Maintaining good O2 saturations in the 90s on 4 L/m per nasal cannula. I discussed the assessment and plan of care with my nurse practitioner, Keturah Dobbins. I attest to the above note as dictated by her.
--- NOTE | 2018-02-26 12:56 | DS ---
DISCHARGE SUMMARY DATE OF ADMISSION: 02/22/2018 DATE OF DISCHARGE: 02/26/2018 FINAL DIAGNOSES: 1. Acute exacerbation of persistent atrial fibrillation with rapid ventricular rate, chronically on Coumadin. 2. Coumadin monitoring. 3. Acute congestive heart failure exacerbation with bilateral pulmonary edema precipitated by atrial fibrillation from underlying systolic dysfunction ejection fraction 25% to 30%. 4. Acute hypoxic respiratory failure from pulmonary edema, present on admission. 5. Chronic hypoxic respiratory failure, patient on home oxygen 4 L. 6. Hypothyroidism. 7. Hyperlipidemia. 8. Right wrist fracture with support. 9. Code status is FULL. HOSPITAL COURSE: This is a patient who had a pacemaker placed by Dr. Clinton presented with CHF exacerbation and A. fib with rapid ventricular rate. Heart rate was better controlled by the time of discharge. The 2-D echo revealed EF of 25% to 30% with global hypokinesia. Doing better at the time of discharge. Care was discussed with the patient. Questions were answered. ON EXAMINATION: LUNGS: Improved air entry. CARDIOVASCULAR: Heart sounds irregular. Blood pressure is 108/74, pulse ox 99% on 4 L. CONSULTATION: Dr. Hunt from Pulmonary; Dr. Logan Jean Baptiste from Cardiology. DISCHARGE MEDICATIONS: 1. Synthroid 75 mcg a day. 2. Aspirin 81 mg a day. 3. Lipitor 20 mg a day. 4. Citracal 2 tablets p.o. daily. 5. Potassium 20 mEq p.o. daily. 6. NovoLog see protocol p.r.n. 7. Cardizem CD 120 mg p.o. daily. 8. Coumadin 2.5 mg p.o. at bedtime. 9. Lasix 60 mg p.o. b.i.d. 10.Cozaar 25 mg p.o. daily. 11.Lopressor 75 mg p.o. t.i.d. 12.Aldactone 12.5 p.o. daily. Follow up with Leann Soto after discharged from [facility]. Follow up with Dr. Cao at the [facility]. Follow up with Cardiology in 1 week. LABS: INR, BMP in 3 days. MMODL / IJN: [id number] /
[2018-02-26] MEDS ORDERED: WARFARIN 2.5 MG TAB PO ONE (18:00)
--- NOTE | 2018-02-26 18:47 | PN ---
PROGRESS NOTE This is a lady who is 82 years old with a lower ejection fraction, had a pacemaker performed in [facility] and has a back hand in that area. She has been admitted to the hospital with some shortness of breath. I am recommending that we discontinue IV Lasix, add losartan and a small dose of Aldactone, increase activity and possibly discharge her to follow up with her back hand in the [place] area. Vital signs are stable. JVD 1 cm is noted. S1, S2 heard normally. rate and rhythm. Short systolic murmur noted. Lungs reveal improved air entry. Abdomen and lower extremity exam otherwise is unchanged. Patient is on Coumadin. INR today is 2.1. We will resume her Coumadin. Her home Coumadin dose is 2.5 mg daily. We will probably start her with 2 mg, since she was supratherapeutic when she came in. She will be transferred to [facility] today. MMODL / IJN: [id number] /
[2018-02-27] MEDS ORDERED: LOSARTAN 25 MG TAB PO SCH (09:00)
[2018-02-27] MEDS ORDERED: SPIRONOLACTONE 25 MG TAB PO SCH (09:00)
== END 2018-02-26 15:01 | DRG 291 ==
LOC: EC 13:00 → 6SEL 13:52
PROVIDERS: ADMIT Hospitalist; ATTEND Hospitalist
DX: I11.0 Hypertensive heart disease with heart failure (principal); J96.21 Acute and chronic respiratory failure with hypoxia; I48.1 Persistent atrial fibrillation; I50.23 Acute on chronic systolic (congestive) heart failure; E11.9 Type 2 diabetes mellitus without complications; I44.7 Left bundle-branch block, unspecified; E03.9 Hypothyroidism, unspecified; E78.5 Hyperlipidemia, unspecified; S62.101D Fracture of unspecified carpal bone, right wrist, subsequent encounter for fracture with routine healing; Z99.81 Dependence on supplemental oxygen; Z79.01 Long term (current) use of anticoagulants; Z79.82 Long term (current) use of aspirin; Z79.890 Hormone replacement therapy; Z79.4 Long term (current) use of insulin; Z79.899 Other long term (current) drug therapy; Z87.440 Personal history of urinary (tract) infections; Z95.0 Presence of cardiac pacemaker; Z83.3 Family history of diabetes mellitus; Z84.1 Family history of disorders of kidney and ureter; Z83.6 Family history of other diseases of the respiratory system; Z81.1 Family history of alcohol abuse and dependence
CPT/HCPCS: 36415; 71046; 80048; 80053; 82550; 82553; 83036; 83735; 83880; 84484; 85025; 85610; 85730; 87040; 93005; 93306; 94760; 96374; 99291

== ENCOUNTER 2020-02-21 19:17 | Observation (INO) | payer MEDICARE, BC ==
[2020-02-21] MEDS ORDERED: SODIUM CHLORIDE 0.9% 500 ML 500 ML IV STA (20:09)
[2020-02-21 20:40] LABS: Basophils # (A) 0.1 k/uL (0-0.2); Basophils % (A) 1 %; Eosinophils # (A) 0.2 k/uL (0-0.7); Eosinophils % (A) 1 %; HCT 43.6 % (34.0-46.0); Lymphocytes # (A) 1.5 k/uL (1.0-4.8); Lymphocytes % (A) 13 %; MCH 30.1 pg (25.0-35.0); MCHC 32.2 g/dL (31.0-37.0); MCV 93.6 fL (80.0-100.0); Mean Platelet Volume 8.8; Monocytes # (A) 0.7 k/uL (0-1.0); Monocytes % (A) 6 %; Neutrophils # (A) 8.9 k/uL (1.3-7.7); Neutrophils % (A) 78 %; Platelet Count 189 k/uL (150-450); RBC 4.66 m/uL (3.80-5.40); WBC 11.5 k/uL (3.8-10.6)
[2020-02-21 20:49] LABS: Albumin 3.4 g/dL (3.5-5.0); Calcium 8.6 mg/dL (8.4-10.2); Magnesium 1.9 mg/dL (1.6-2.3); Partial Thromboplastin Time 23.3 sec (22.0-30.0); Potassium 3.8 mmol/L (3.5-5.1); Prothrombin Time 10.7 sec (9.0-12.0); Total Bilirubin 0.7 mg/dL (0.2-1.3); Total Protein 6.2 g/dL (6.3-8.2)
--- NOTE | 2020-02-21 21:20 | XR ---
EXAMINATION TYPE: XR chest 2V DATE OF EXAM: 02/21/2020 COMPARISON: 02/24/2018 HISTORY: 84-year-old female with syncope TECHNIQUE: AP and lateral views FINDINGS: Left anterior chest wall pacemaker generator with right ventricular and coronary sinus leads. Heart m ildly enlarged. Diffuse interstitial prominence is a chronic appearance. No consolidation or pleural effusion. IMPRESSION: Mild cardiomegaly and chronic appearing changes. No acute process seen.
[2020-02-21 22:18] LABS: Appearance,Urine Cloudy (Clear); Bacteria,Urine Rare /hpf; Bilirubin,Urine Negative (Negative); Blood,Urine Negative (Negative); Color,Urine Yellow; Glucose,Urine (UA) Negative (Negative); Hyaline Casts,Urine 16 /lpf (0-2); Ketones,Urine Negative (Negative); Leukocyte Esterase,Urine Large (Negative); Mucus,Urine Rare /hpf; Nitrite,Urine Negative (Negative); Protein,Urine Negative (Negative); RBC,Urine 2 /hpf (0-5); Squamous Epithelial Cell,Urine 2 /hpf (0-4); Urobilinogen,Urine <2.0 mg/dL (<2.0); WBC,Urine >182 /hpf (0-5)
--- NOTE | 2020-02-21 22:29 | ED ---
General Adult HPI - General Source: patient, EMS Mode of arrival: EMS Limitations: no limitations <Angie Neal - Last Filed: 02/21/20 22:23> <Brianne Solorzano - Last Filed: 02/25/20 00:18> - General Chief complaint: Syncope Stated complaint: Syncope Time Seen by Provider: 02/21/20 19:59 - History of Present Illness Initial comments: 84 year-old female patient presents to the emergency department today for e valuation after experiencing a syncopal episode at home. Patient states that she was sitting at the table eating dinner and feeling well. Family member states when he returned from the bathroom she was face down in her food. It didn't seem that she was breathing. Physical 1 encounter to the floor. He was trying to feel for a pulse but was unable to. By the time EMS arrived the patient did have pulses and was responding. States that afterwards she felt a little short of breath. Denies chest pain, dizziness, or weakness. Denies any headache, blurred vision, double vision. Patient denies any history of similar episodes. She does have a history of atrial fibrillation and does have a p acemaker. Patient denies any recent rash, fever, chills, cough, abdominal pain, nausea, vomiting, diarrhea, constipation, back pain, numbness, tingling, hematuria, dysuria, urinary urgency, urinary frequency, headache, visual changes, or any other complaints. (Angie Neal) - Related Data Home Medications Medication Instructions Recorded Confirmed Levothyroxine Sodium [Synthroid] 75 mcg PO DAILY 11/04/17 02/21/20 Atorvastatin [Lipitor] 20 mg PO HS 02/22/18 02/21/20 Apixaban [Eliquis] 2.5 mg PO BID 02/21/20 02/21/20 Furosemide [Lasix] 40 mg PO DAILY 02/21/20 02/21/20 Metoprolol Tartrate [Lopressor] 25 mg PO DAILY 02/21/20 02/21/20 Prednisolone Acetate/Pf 1 drop RIGHT EYE TID 02/21/20 02/21/20 [Prednisolone Acet 1% Eye Drop] Vitamin D3 (Unknown Strength) 1 tab PO DAILY 02/21/20 02/21/20 Previous Rx's Medication Instructions Recorded Aspirin EC [Ecotrin Low Dose] 81 mg PO DAILY #30 tablet. 02/22/20 Cephalexin [Keflex] 500 mg PO Q8HR 3 Days #9 cap 02/22/20 lisinopriL [Zestril] 5 mg PO DAILY #30 tab 02/22/20 Allergies Allergy/AdvReac Type Severity Reaction Status Date / Time No Known Allergies Allergy Verified 02/21/20 22:56 Review of Systems ROS Other: All systems not noted in ROS Statement are negative. <Angie Neal - Last Filed: 02/21/20 22:23> ROS Other: All systems not noted in ROS Statement are negative. <Brianne Solorzano - Last Filed: 02/25/20 00:18> ROS Statement: Those systems with pertinent positive or pertinent negative responses have been documented in the HPI. Past Medical History Past Medical History: Atrial Fibrillation, Diabetes Mellitus, Hypertension, Thyroid Disorder Additional Past Medical History / Comment(s): Congestive heart failure, pacemaker insertion, diabetes Melitus, hypertension and hypothyroid, chronic hypoxic respiratoprty failure and she is on home O2 4 liter/min, atrial fibrillation, UTI (recent) and she was treated with ABX History of Any Multi-Drug Resistant Organisms: None Reported Past Surgical History: Pacemaker Type of Cardiac Device: Unknown Device Placement Date:: September 2017 Past Psychological History: No Psychological Hx Reported Past Alcohol Use History: None Reported Past Drug Use History: None Reported - Past Family History Mother Family Medical History: Diabetes Mellitus, Renal Disease Father Additional Family Medical History / Comment(s): "Black lung and alcohol." Father worked in the [employer] industry. <Angie Neal - Last Filed: 02/21/20 22:23> General Exam Limitations: no limitations General appearance: alert, in no apparent distress, other (This is a well- developed, well-nourished adult female patient in no acute distress. Vital signs upon presentation are temperature 98.1F, pulse 90, respirations 16, blood pressure 140/72, pulse ox 96% on room air) Eye exam: Present: normal appearance, PERRL, EOMI. Absent: scleral icterus, conjunctival injection, periorbital swelling ENT exam: Present: normal exam, normal oropharynx, mucous membranes moist Respiratory exam: Present: normal lung sounds bilaterally. Absent: respiratory distress, wheezes, rales, rhonchi, stridor Cardiovascular Exam: Present: regular rate, normal rhythm, normal heart sounds. Absent: systolic murmur, diastolic murmur, rubs, gallop, clicks GI/Abdominal exam: Present: soft, normal bowel sounds. Absent: distended, tenderness, guarding, rebound, rigid Neurological exam: Present: alert, oriented X3, CN II-XII intact Psychiatric exam: Present: normal affect, normal mood Skin exam: Present: warm, dry, intact, normal color. Absent: rash <Angie Neal - Last Filed: 02/21/20 22:23> Course Vital Signs 02/21/20 02/21/20 02/21/20 19:20 19:23 19:30 Temperature 98.1 F Pulse Rate 90 Pulse Rate [ 90 Pulse Oximetery ] Respiratory 16 16 16 Rate Blood Pressure 140/72 140/72 O2 Sat by Pulse 96 94 L 95 Oximetry 02/21/20 02/21/20 02/21/20 20:00 20:30 21:00 Temperature Pulse Rate Pulse Rate [ Pulse Oximetery ] Respiratory 16 16 16 Rate Blood Pressure 137/71 120/60 120/60 O2 Sat by Pulse Oximetry 02/21/20 02/21/20 21:30 22:00 Temperature Pulse Rate 80 90 Pulse Rate [ Pulse Oximetery ] Respiratory 16 Rate Blood Pressure 126/63 114/65 O2 Sat by Pulse 95 Oximetry EKG Findings - EKG Comments: EKG Findings:: EKG obtained at 2059 shows ventricular paced rhythm. Ventricular rate is 90, QRS duration 144, QT 440, QTC 538. No evidence of clinically significant ST elevation or depression. <Angie Neal - Last Filed: 02/21/20 22:23> Medical Decision Making - Lab Data Result diagrams: 02/21/20 20:09 02/21/20 20:09 - Radiology Data Radiology results: report reviewed, image reviewed <Angie Neal - Last Filed: 02/21/20 22:23> - Lab Data Result diagrams: 02/21/20 20:09 02/21/20 20:09 <Brianne Solorzano - Last Filed: 02/25/20 00:18> - Medical Decision Making 84 old female patient presented to the emergency department today for evaluation after having a syncopal event. Patient reported feeling well prior to the event. Afterwards she does report feeling a little short of breath. Family member states she is a little disoriented. They denied any body shaking. Physical examination is currently unremarkable. She is neurologically intact. 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 Savage that she had a leaky valve, they are monitoring this. Labs reviewed and are unremarkable. We will admit to the hospital for further cardiac monitoring and evaluation by cardiol yolanda. Patient family is agreeable this plan. (Angie Neal) I was available for consultation in the emergency department. The history and physical exam were done by the midlevel provider. I was consulted for this patients care. I reviewed the case with the midlevel provider and based on their presentation of the patient, I agree with the assessment, medical decision making and plan of care as documented. Discussed the case with Dr. Sethi who agreed to admit the patient. Chart was dictated using [employer] dictation software. Attempts were made to correct any dictation errors however some typographical errors may persist. Patient was seen during a national state of emergency due to the Covid-19 pandemic. (Brianne Solorzano) - Lab Data Lab Results 02/21/20 02/21/20 02/21/20 Range/Units 20:09 20:09 20:09 WBC 11.5 H (3.8-10.6) k/uL RBC 4.66 (3.80-5.40) m/uL Hgb 14.0 (11.4-16.0) gm/dL Hct 43.6 (34.0-46.0) % MCV 93.6 (80.0-100.0) fL MCH 30.1 (25.0-35.0) pg MCHC 32.2 (31.0-37.0) g/dL RDW 13.0 (11.5-15.5) % Plt Count 189 (150-450) k/uL Neutrophils % 78 % Lymphocytes % 13 % Monocytes % 6 % Eosinophils % 1 % Basophils % 1 % Neutrophils # 8.9 H (1.3-7.7) k/uL Lymphocytes # 1.5 (1.0-4.8) k/uL Monocytes # 0.7 (0-1.0) k/uL Eosinophils # 0.2 (0-0.7) k/uL Basophils # 0.1 (0-0.2) k/uL PT 10.7 (9.0-12.0) sec INR 1.0 (<1.2) APTT 23.3 (22.0-30.0) sec Sodium 137 (137-145) mmol/L Potassium 3.8 (3.5-5.1) mmol/L Chloride 103 (98-107) mmol/L Carbon Dioxide 27 (22-30) mmol/L Anion Gap 7 mmol/L BUN 21 H (7-17) mg/dL Creatinine 0.96 (0.52-1.04) mg/dL Est GFR (CKD-EPI)AfAm 62 (>60 ml/min/1.73 sqM) Est GFR (CKD-EPI)NonAf 54 (>60 ml/min/1.73 sqM) Glucose 155 H (74-99) mg/dL Calcium 8.6 (8.4-10.2) mg/dL Magnesium 1.9 (1.6-2.3) mg/dL Total Bilirubin 0.7 (0.2-1.3) mg/dL AST 29 (14-36) U/L ALT 13 (4-34) U/L Alkaline Phosphatase 93 (38-126) U/L Troponin I (0.000-0.034) ng/mL Total Protein 6.2 L (6.3-8.2) g/dL Albumin 3.4 L (3.5-5.0) g/dL Urine Color Urine Appearance (Clear) Urine pH (5.0-8.0) Ur Specific Rewey (1.001-1.035) Urine Protein (Negative) Urine Glucose (UA) (Negative) Urine Ketones (Negative) Urine Blood (Negative) Urine Nitrite (Negative) Urine Bilirubin (Negative) Urine Urobilinogen (<2.0) mg/dL Ur Leukocyte Esterase (Negative) Urine RBC (0-5) /hpf Urine WBC (0-5) /hpf Urine WBC Clumps (None) /hpf Ur Squamous Epith Cells (0-4) /hpf Urine Bacteria (None) /hpf Hyaline Casts (0-2) /lpf Urine Mucus (None) /hpf 02/21/20 02/21/20 Range/Units 20:09 20:31 WBC (3.8-10.6) k/uL RBC (3.80-5.40) m/uL Hgb (11.4-16.0) gm/dL Hct (34.0-46.0) % MCV (80.0-100.0) fL MCH (25.0-35.0) pg MCHC (31.0-37.0) g/dL RDW (11.5-15.5) % Plt Count (150-450) k/uL Neutrophils % % Lymphocytes % % Monocytes % % Eosinophils % % Basophils % % Neutrophils # (1.3-7.7) k/uL Lymphocytes # (1.0-4.8) k/uL Monocytes # (0-1.0) k/uL Eosinophils # (0-0.7) k/uL Basophils # (0-0.2) k/uL PT (9.0-12.0) sec INR (<1.2) APTT (22.0-30.0) sec Sodium (137-145) mmol/L Potassium (3.5-5.1) mmol/L Chloride (98-107) mmol/L Carbon Dioxide (22-30) mmol/L Anion Gap mmol/L BUN (7-17) mg/dL Creatinine (0.52-1.04) mg/dL Est GFR (CKD-EPI)AfAm (>60 ml/min/1.73 sqM) Est GFR (CKD-EPI)NonAf (>60 ml/min/1.73 sqM) Glucose (74-99) mg/dL Calcium (8.4-10.2) mg/dL Magnesium (1.6-2.3) mg/dL Total Bilirubin (0.2-1.3) mg/dL AST (14-36) U/L ALT (4-34) U/L Alkaline Phosphatase (38-126) U/L Troponin I <0.012 (0.000-0.034) ng/mL Total Protein (6.3-8.2) g/dL Albumin (3.5-5.0) g/dL Urine Color Yellow Urine Appearance Cloudy H (Clear) Urine pH 6.0 (5.0-8.0) Ur Specific Rewey 1.010 (1.001-1.035) Urine Protein Negative (Negative) Urine Glucose (UA) Negative (Negative) Urine Ketones Negative (Negative) Urine Blood Negative (Negative) Urine Nitrite Negative (Negative) Urine Bilirubin Negative (Negative) Urine Urobilinogen <2.0 (<2.0) mg/dL Ur Leukocyte Esterase Large H (Negative) Urine RBC 2 (0-5) /hpf Urine WBC >182 H (0-5) /hpf Urine WBC Clumps Few H (None) /hpf Ur Squamous Epith Cells 2 (0-4) /hpf Urine Bacteria Rare H (None) /hpf Hyaline Casts 16 H (0-2) /lpf Urine Mucus Rare H (None) /hpf - Radiology Data Two-view x-ray of the chest is obtained. Report was reviewed in its entirety. Impression by Dr. Rodriguez shows mild cardiomegaly and chronic-appearing changes. No acute process seen. (Angie Neal) Disposition Decision to Admit Reason: Admit from EC (n) Decision Date: 02/21/20 Decision Time: 22:29 <Angie Neal - Last Filed: 02/21/20 22:23> <Brianne Solorzano - Last Filed: 02/25/20 00:18> Clinical Impression: Syncope Disposition: ADMITTED IP TO THIS HOSP Condition: Serious
[2020-02-21] MEDS ORDERED: NALOXONE 0.4 MG/ML 1 ML VIAL IV PRN (22:54)
--- NOTE | 2020-02-22 00:30 | P.HPIM ---
History of Present Illness H&P Date: 02/22/20 Chief Complaint: syncope 84 year old female , with afib s/p pacemaker, hypertension , DM Patient at her baseline status of health, she was at home having dinner with family, no complaints, and then her nephew found her unresponsive on the dinner table . He notified EMS. patient regained consciousness, and found everyone around her, she does not recall what happened, denies any associated dizziness, lightheadedness, nausea or vomiting, denies any chest pain or trouble breathing, denies tongue biting, denies loss of bladder or bowel control. no report of seizure activity she denies any falls or injuries, and denies anything similar has ever happened before, she was diagnosed with afib about 4 years ago, she is on eliquis EKG showed paced rhythm blood work unremarkable Review of Systems Pertinent positives as noted in HPI. All other systems were reviewed and are negative Past Medical History Past Medical History: Atrial Fibrillation, Diabetes Mellitus, Hypertension, Thyroid Disorder Additional Past Medical History / Comment(s): Congestive heart failure, pac emaker insertion, diabetes Melitus, hypertension and hypothyroid, History of Any Multi-Drug Resistant Organisms: None Reported Past Surgical History: Pacemaker Type of Cardiac Device: Unknown Device Placement Date:: September 2017 Past Psychological History: No Psychological Hx Reported Smoking Status: Never smoker Past Alcohol Use History: None Reported Past Drug Use History: None Reported - Past Family History Mother Family Medical History: Diabetes Mellitus, Renal Disease Father Additional Family Medical History / Comment(s): "Black lung and alcohol." Father worked in the [employer] industry. Medications and Allergies Home Medications Medication Instructions Recorded Confirmed Type Levothyroxine Sodium [Synthroid] 75 mcg PO DAILY 11/04/17 02/21/20 History Atorvastatin [Lipitor] 20 mg PO HS 02/22/18 02/21/20 History Apixaban [Eliquis] 2.5 mg PO BID 02/21/20 02/21/20 History Aspirin 325 mg PO DAILY 02/21/20 02/21/20 History Furosemide [Lasix] 40 mg PO DAILY 02/21/20 02/21/20 History Metoprolol Tartrate [Lopressor] 25 mg PO DAILY 02/21/20 02/21/20 History Prednisolone Acetate/Pf 1 drop RIGHT EYE TID 02/21/20 02/21/20 History [Prednisolone Acet 1% Eye Drop] Vitamin D3 (Unknown Strength) 1 tab PO DAILY 02/21/20 02/21/20 History Allergies Allergy/AdvReac Type Severity Reaction Status Date / Time No Known Allergies Allergy Verified 02/21/20 22:56 Physical Exam Vitals: Vital Signs Temp Pulse Pulse Resp BP Pulse Ox 02/21/20 22:00 90 114/65 95 02/21/20 21:30 80 16 126/63 02/21/20 21:00 16 120/60 02/21/20 20:30 16 120/60 02/21/20 20:00 16 137/71 02/21/20 19:30 90 16 140/72 95 02/21/20 19:23 16 94 L 02/21/20 19:20 98.1 F 90 16 140/72 96 Intake and Output 02/21/20 02/21/20 02/22/20 14:59 22:59 06:59 Other: Weight 87.997 kg 87.997 kg Constitutional: No acute distress, conversant, pleasant Eyes: Anicteric sclerae, moist conjunctiva, Pupils equal round reactive to light ENMT: NC/AT Oropharynx clear, no erythema, or exudates Neck: Supple, FROM, no masses, or JVD No carotid bruits No thyromegaly Lungs: Clear to auscultation Clear to percussion Normal respiratory effort, no accessory muscle use Cardiovascular: Heart regular in rate and rhythm, No murmurs, gallops, or rubs No peripheral edema Abdominal: Soft Nontender, no guarding, rebound or rigidity Abdomen moving with respiration Normoactive bowel sounds No hepatomegaly, No splenomegaly No palpable mass No abdominal wall hernia noted Skin: Normal temperature, tone, texture, turgor No induration No subcutaneous nodules No rash, lesions No ulcers Extremities: No digital cyanosis No clubbing Pedal pulses intact and symmetrical Radial pulses intact and symmetrical No calf tenderness Psychiatric: Alert and oriented to person, place and time Appropriate affect fair judgement Neuro Muscles Strength 5/5 in all 4 extremities Sensation to light touch grossly present throughout Cranial nerves II-XII grossly intact No focal sensory deficits Lymphatics: no palpable cervical or supraclavicular , or inguinal lymph nodes Results CBC & Chem 7: 02/21/20 20:09 02/21/20 20:09 Labs: Abnormal Lab Results - Last 24 Hours (Table) 02/21/20 02/21/20 02/21/20 Range/Units 20:09 20:09 20:31 WBC 11.5 H (3.8-10.6) k/uL Neutrophils # 8.9 H (1.3-7.7) k/uL BUN 21 H (7-17) mg/dL Glucose 155 H (74-99) mg/dL Total Protein 6.2 L (6.3-8.2) g/dL Albumin 3.4 L (3.5-5.0) g/dL Urine Appearance Cloudy H (Clear) Ur Leukocyte Esterase Large H (Negative) Urine WBC >182 H (0-5) /hpf Urine WBC Clumps Few H (None) /hpf Urine Bacteria Rare H (None) /hpf Hyaline Casts 16 H (0-2) /lpf Urine Mucus Rare H (None) /hpf Assessment and Plan 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
[2020-02-22] MEDS: LEVOTHYROXINE 75 MCG TAB PO SCH ×2 (04:43→09:43)
[2020-02-22 08:05] VITALS: RESP 20; TEMP 97.6
[2020-02-22] MEDS ORDERED: prednisoLONE ACETATE 1% OPHTH DROPS 5 ML BTL RIGHT EYE SCH (09:00)
[2020-02-22] MEDS ORDERED: FUROSEMIDE 40 MG TAB PO SCH (09:00)
[2020-02-22] MEDS ORDERED: APIXABAN 2.5 MG TABLET PO SCH (09:00)
[2020-02-22] MEDS ORDERED: ASPIRIN 325 MG TAB PO SCH (09:00)
[2020-02-22] MEDS ORDERED: METOPROLOL TARTRATE 50 MG TAB PO SCH (09:00)
--- NOTE | 2020-02-22 09:06 | US ---
EXAMINATION TYPE: US carotid duplex BILAT DATE OF EXAM: 02/22/2020 COMPARISON: NONE CLINICAL HISTORY: syncope. Syncope EXAM MEASUREMENTS: RIGHT: Peak Systolic Velocity (PSV) cm/sec ----- Right CCA: 63.3 ----- Right ICA: 83.1 ----- Right ECA: 69.4 ICA/CCA ratio: 1.3 RIGHT: End Diastole cm/sec ----- Right CCA: 15.4 ----- Right ICA: 25.9 ----- Right ECA: 10.4 LEFT: Peak Systolic Velocity (PSV) cm/sec ----- Left CCA: 56.6 ----- Left ICA: 71.5 ----- Left ECA: 81.2 ICA/CCA ratio: 1.3 LEFT: End Diastole cm/sec ----- Left CCA: 12.2 ----- Left ICA: 22.3 ----- Left ECA: 0.0 VERTEBRALS (direction of flow): Right Vertebral: Antegrade Left Vertebral: Antegrade Rhythm: Normal Serrano scale images show mild to moderate peripheral plaque centered near bilateral carotid bulb level without increased peak systolic velocity in either internal carotid artery. IMPRESSION: No hemodynamically significant stenosis in either internal carotid artery. Criteria for Assigning % of Stenosis / Diameter reduction (Estimation based on the indirect measurements of the internal carotid artery velocities (ICA PSV). 1. Normal (no stenosis)=ICA PSV < 125 cm/s: ratio < 2.0: ICA EDV<40 cm/s. 2. Less than 50% stenosis=ICA PSV < 125 cm/s: ratio < 2.0: ICA EDV<40 cm/s. 3. 50 to 69% stenosis=ICA PSV of 125 to 230 cm/s: ration 2.0 ? 4.0: ICA EDV 40-100 cm/s. 4. Greater than 70% stenosis to near occlusion= ICA PSV > 230 cm/s: ratio > 4.0: ICA EDV > 100 cm/s. 5. Near occlusion= ICA PSV velocities may be low or undetectable: variable ratio and ICA EDV. 6. Total occlusion=unable to detect flow.
[2020-02-22 09:41] LABS: Glucose,Whole Blood 122 mg/dL (75-99)
[2020-02-22] MEDS ORDERED: lisinopriL 5 MG TAB PO SCH (10:15)
--- NOTE | 2020-02-22 10:16 | P.CRDCN ---
History of Present Illness History of present illness: HISTORY OF PRESENTING ILLNESS This is a pleasant 84-year-old occasion female past medical history significant for chronic persistent atrial fibrillation on long-term anticoagulation, chronic systolic heart failure, sick sinus syndrome status post permanent pacemaker implantation, dyslipidemia, diabetes mellitus and hypertension. According to the patient she has never had coronary artery disease or stent placement. She follows in the office with Dr. Savage. We have been asked to see in consultation for syncope. States she woke up yesterday feeling in her usual state of health. She was asymptomatic and feeling well. She had dinner and dessert with the family member was sitting at the table. The next thing she remembers she woke up with EMS standing over her. According to a family member he got up to use the restroom and when he came back she was slumped over on the table and unconscious. When EMS arrived she did have a palpable pulse and was arousable. She denies having any symptoms of chest discomfort, shortness of breath, dizziness, palpitations, nausea, vomiting or diaphoresis. According to the family member there was no seizure activity and she did not lose bladder or bowel control. She is seen and examined sitting up in no acute distress. Telemetry tracings thus far have been unremarkable. Pacemaker was interrogated in the emergency department and unremarkable for an arrhythmia. Most recent echocardiogram obtained in 2018 revealed severe global hypokinesia of the LV with ejection fraction 25-30%, paradoxical septal motion, severely dilated left atrium, mild to moderate MR, mild TR and borderline pulmonary hypertension with an RVSP of 36 mmHg. Vital signs are negative for orthostatic changes. DIAGNOSTICS EKG reveals ventricular paced rhythm. Chest xray negative for an acute cardiopulmonary process. Laboratory reviewed, WBC 11.5, hemoglobin 14, platelets 189, sodium 137, potassium 3.8, creatinine 0.96, magnesium 1.9, cardiac enzymes negative 3. Current cardiac medications include atorvastatin 20 mg at bedtime, Eliquis 2.5 mg twice a day, Lasix 40 mg daily, Lopressor 25 mg daily and aspirin 325 mg daily. REVIEW OF SYSTEMS At the time of my exam: CONSTITUTIONAL: Denies fever or chills. CARDIOVASCULAR: Denies chest pain, shortness of breath, orthopnea, PND or palpitations. RESPIRATORY: Denies cough. GASTROINTESTINAL: Denies abdominal pain, diarrhea, constipation, nausea or vomiting. MUSCULOSKELETAL: Denies myalgias. NEUROLOGIC: Denies numbness, tingling or weakness. ENDOCRINE: Denies fatigue, weight change, polydipsia or polyurina. GENITOURINARY: Denies burning, hematuria or urgency with micturation. HEMATOLOGIC: Denies history of anemia or bleeding. PHYSICAL EXAMINATION Blood pressure 144/76 heart rate 78 afebrile and maintaining oxygen saturation on room air. CONSTITUTIONAL: No apparent distress. HEENT: Head is normocephalic. Pupils are equal, round. Sclerae anicteric. Mucous membranes of the mouth are moist. No JVD. No carotid bruit. CHEST EXAMINATION: Lungs are clear to auscultation. No chest wall tenderness is noted on palpation or with deep breathing. HEART EXAMINATION: Irregular rate and rhythm. S1, S2 heard. Systolic ejection murmur at the left sternal border, no gallops or rub. ABDOMEN: Soft, nontender. Positive bowel sounds. EXTREMITIES: 2+ peripheral pulses, no lower extremity edema and no calf tenderness. NEUROLOGIC EXAMINATION: Patient is awake, alert and oriented x3. ASSESSMENT Syncope Leukocytosis Chronic systolic heart failure, clinically euvolemic Nonischemic cardiomyopathy Chronic persistent atrial fibrillation on long-term anticoagulation Hypertension Dyslipidemia Diabetes mellitus PLAN An acute coronary event has been ruled out. Telemetry tracings and pacemaker interrogation unremarkable. Obtain 2D echocardiogram and doppler study to assess cardiac structure and function. Given her history of chronic systolic heart failure would initiate lisinopril 5 mg daily to optimize her heart failure medical therapy. Syncope does not appear cardiogenic in nature, consider neurology evaluation. Recommend follow up with her primary java project manager upon discharge. Thank you kindly for this consultation. Nurse Practitioner note has been reviewed, I agree with a documented findings and plan of care. Patient was seen and examined. Past Medical History Past Medical History: Atrial Fibrillation, Diabetes Mellitus, Hypertension, Thyroid Disorder Additional Past Medical History / Comment(s): Congestive heart failure, pacemaker insertion, diabetes Melitus, hypertension and hypothyroid, History of Any Multi-Drug Resistant Organisms: None Reported Past Surgical History: Pacemaker Type of Cardiac Device: Unknown Device Placement Date:: September 2017 Past Psychological History: No Psychological Hx Reported Smoking Status: Never smoker Past Alcohol Use History: None Reported Past Drug Use History: None Reported - Past Family History Mother Family Medical History: Diabetes Mellitus, Renal Disease Father Additional Family Medical History / Comment(s): "Black lung and alcohol." Father worked in the [employer] industry. Medications and Allergies Home Medications Medication Instructions Recorded Confirmed Type RX: Levothyroxine Sodium 75 mcg PO DAILY 11/04/17 02/21/20 History [Synthroid] RX: Atorvastatin [Lipitor] 20 mg PO HS 02/22/18 02/21/20 History Apixaban [Eliquis] 2.5 mg PO BID 02/21/20 02/21/20 History Furosemide [Lasix] 40 mg PO DAILY 02/21/20 02/21/20 History Prednisolone Acetate/Pf 1 drop RIGHT EYE TID 02/21/20 02/21/20 History [Prednisolone Acet 1% Eye Drop] RX: Aspirin 325 mg PO DAILY 02/21/20 02/21/20 History RX: Metoprolol Tartrate [Lopressor] 25 mg PO DAILY 02/21/20 02/21/20 History Vitamin D3 (Unknown Strength) 1 tab PO DAILY 02/21/20 02/21/20 History Allergies Allergy/AdvReac Type Severity Reaction Status Date / Time No Known Allergies Allergy Verified 02/21/20 22:56 Physical Exam Vitals: Vital Signs Temp Pulse Pulse Pulse Pulse Pulse Resp 02/22/20 08:19 61 61 61 02/22/20 08:04 97.6 F 90 20 02/22/20 07:23 02/22/20 03:33 98.1 F 90 16 02/22/20 00:15 98.0 F 91 18 02/21/20 22:00 90 02/21/20 21:30 80 16 02/21/20 21:00 16 02/21/20 20:30 16 02/21/20 20:00 16 02/21/20 19:30 90 16 02/21/20 19:23 16 02/21/20 19:20 98.1 F 90 16 BP BP BP BP BP BP Pulse Ox 02/22/20 08:19 144/86 147/90 128/80 02/22/20 08:04 128/73 93 L 02/22/20 07:23 96 02/22/20 03:33 126/74 96 02/22/20 00:15 168/80 96 02/21/20 22:00 114/65 95 02/21/20 21:30 126/63 02/21/20 21:00 120/60 02/21/20 20:30 120/60 02/21/20 20:00 137/71 02/21/20 19:30 140/72 95 02/21/20 19:23 94 L 02/21/20 19:20 140/72 96 Intake and Output 02/21/20 02/22/20 02/22/20 22:59 06:59 14:59 Other: Voiding Method Toilet # Voids 1 Weight 87.997 kg 87.997 kg Results 02/21/20 20:09 02/21/20 20:09 Cardiac Enzymes 02/21/20 02/21/20 02/21/20 Range/Units 20:09 20:09 23:55 AST 29 (14-36) U/L Troponin I <0.012 <0.012 (0.000-0.034) ng/mL 02/22/20 Range/Units 03:05 AST (14-36) U/L Troponin I <0.012 (0.000-0.034) ng/mL Coagulation 02/21/20 Range/Units 20:09 PT 10.7 (9.0-12.0) sec APTT 23.3 (22.0-30.0) sec CBC 02/21/20 Range/Units 20:09 WBC 11.5 H (3.8-10.6) k/uL RBC 4.66 (3.80-5.40) m/uL Hgb 14.0 (11.4-16.0) gm/dL Hct 43.6 (34.0-46.0) % Plt Count 189 (150-450) k/uL Comprehensive Metabolic Panel 02/21/20 Range/Units 20:09 Sodium 137 (137-145) mmol/L Potassium 3.8 (3.5-5.1) mmol/L Chloride 103 (98-107) mmol/L Carbon Dioxide 27 (22-30) mmol/L BUN 21 H (7-17) mg/dL Creatinine 0.96 (0.52-1.04) mg/dL Glucose 155 H (74-99) mg/dL Calcium 8.6 (8.4-10.2) mg/dL AST 29 (14-36) U/L ALT 13 (4-34) U/L Alkaline Phosphatase 93 (38-126) U/L Total Protein 6.2 L (6.3-8.2) g/dL Albumin 3.4 L (3.5-5.0) g/dL Current Medications Generic Name Dose Route Start Last Admin Trade Name Freq PRN Reason Stop Dose Admin Apixaban 2.5 mg 02/22/20 09:00 Eliquis PO BID [facility] Aspirin 325 mg 02/22/20 09:00 Aspirin PO DAILY [facility] Atorvastatin Calcium 20 mg 02/22/20 21:00 Lipitor PO HS [facility] Furosemide 40 mg 02/22/20 09:00 Lasix PO DAILY [facility] Levothyroxine Sodium 75 mcg 02/22/20 06:30 02/22/20 04:43 Synthroid PO Not Given DAILY@0630 [facility] Metoprolol Tartrate 25 mg 02/22/20 09:00 Lopressor PO DAILY [facility] Naloxone HCl 0.2 mg 02/21/20 22:54 Narcan IV Q2M PRN Opioid Reversal Prednisolone Acetate 1 drops 02/22/20 09:00 Pred Forte 1% RIGHT EYE TID [facility] Intake and Output 02/21/20 02/22/20 02/22/20 22:59 06:59 14:59 Other: Voiding Method Toilet # Voids 1 Weight 87.997 kg 87.997 kg 02/21/20 20:09 02/21/20 20:09
--- NOTE | 2020-02-22 12:00 | ECHOF ---
Referral Reason:syncope MEASUREMENTS -------- HEIGHT: 165.1 cm WEIGHT: 88.0 kg BP: 144/86 RVIDd: 3.6 cm (< 3.3) IVSd: 1.5 cm (0.6 - 1.1) LVIDd: 3.7 cm (3.9 - 5.3) LVPWd: 1.7 cm (0.6 - 1.1) IVSs: 1.7 cm LVIDs: 2.9 cm LVPWs: 2.0 cm LAESV Index (A-L): 46.17 ml/m Ao Diam: 2.5 cm (2.0 - 3.7) AV Cusp: 1.1 cm (1.5 - 2.6) MV EXCURSION: 17.874 mm (> 18.000) MV EF SLOPE: 82 mm/s (70 - 150) EPSS: 0.3 cm AV maxP.50 mmHg AV meanP.05 mmHg RAP: 5.00 mmHg RVSP: 46.32 mmHg FINDINGS -------- This was a technically adequate study. The left ventricular size is normal. There is moderate concentric left ventricular hypertrophy. O verall left ventricular systolic function is low-normal with, an EF between 50 - 55 %. Increased La p Grade II Diastolic Dysfunction. The right ventricle is mildly enlarged. LA is moderately dilated 34-39 ml/m2 The right atrium is mildly enlarged. Electronic pacemaker lead seen in the right atrial cavity. Interatrial and interventricular septum intact. There is mild aortic stenosis present. Peak/mean gradient across the Aortic Valve is 21.50mmHg / 12 .05mmHg. Moderate mitral annular calcification present. Moderate mitral regurgitation is present. Moderate tricuspid regurgitation present. There is moderate pulmonary hypertension. The right rdaha tricular systolic pressure, as measured by Doppler, is 46.32mmHg. There is no pulmonic regurgitation present. The aortic root size is normal. The inferior vena cava is mildly dilated. There is no pericardial effusion. CONCLUSIONS -------- 1. The left ventricular size is normal. 2. There is moderate concentric left ventricular hypertrophy. 3. Overall left ventricular systolic function is low-normal with, an EF between 50 - 55 %. 4. Increased Lap Grade II Diastolic Dysfunction. 5. The right ventricle is mildly enlarged. 6. LA is moderately dilated 34-39 ml/m2 7. The right atrium is mildly enlarged. 8. There is mild aortic stenosis present. 9. Peak/mean gradient across the Aortic Valve is 21.50mmHg / 12.05mmHg. 10. Moderate mitral annular calcification present. 11. Moderate mitral regurgitation is present. 12. Moderate tricuspid regurgitation present. 13. There is moderate pulmonary hypertension. 14. The right ventricular systolic pressure, as measured by Doppler, is 46.32mmHg. 15. The inferior vena cava is mildly dilated. [employer]ACE [employer]PERATIONS OFFICER: Krystin Mane RDCS
[2020-02-22 12:07] VITALS: BP 118/72; PULSE 87
--- NOTE | 2020-02-22 13:35 | P.DS ---
Providers Date of admission: 02/21/20 22:03 Expected date of discharge: 02/22/20 Attending physician: Nils Sethi MD Consults: 02/21/20 22:55 Consult Physician Routine Consulting Provider: [facility] Consult Reason/Comments: Syncope Do you want consulting provider notified?: Yes Primary care physician: [facility] Hospital Course: This is a 84-year-old female with past medical history significant for chronic atrial fibrillation on anticoagulation, status post pacemaker, nonischemic cardiomyopathy, chronic systolic heart failure, sick sinus syndrome, h yperlipidemia, and diabetes. Patient presented to the ER after having a syncopal episode at home. Patient evaluated in the EDand placed on observation. She was seen and evaluated by cardiology. Orthostatic blood pressure checked and negative. Echocardiogram showed preserved EF of 55% with improvement from 25% last here. No significant valvular abnormalities. Carotid Doppler showed no hemodynamically significant stenosis. Her syncope was thought to be vasovagal in nature. Patient was also found to have uncomplicated UTI and was given 1 time dose of IV ceftriaxone. She will finish antibiotic course with oral Keflex. She will follow-up on culture result with her PCP as directed. Patient was able to ambulate in her room with no difficulty. She will be discharged back home in a stable condition. Lisinopril 5 mg daily added by cardiology to her regimen. For further details about this hospitalization please refer to the electronic chart. Patient Condition at Discharge: Serious Plan - Discharge Summary New Discharge Prescriptions: New Aspirin EC [Ecotrin Low Dose] 81 mg PO DAILY #30 tablet. Cephalexin [Keflex] 500 mg PO Q8HR 3 Days #9 cap lisinopriL [Zestril] 5 mg PO DAILY #30 tab Continue Levothyroxine Sodium [Synthroid] 75 mcg PO DAILY Atorvastatin [Lipitor] 20 mg PO HS Vitamin D3 (Unknown Strength) 1 tab PO DAILY Prednisolone Acetate/Pf [Prednisolone Acet 1% Eye Drop] 1 drop RIGHT EYE TID Metoprolol Tartrate [Lopressor] 25 mg PO DAILY Furosemide [Lasix] 40 mg PO DAILY Apixaban [Eliquis] 2.5 mg PO BID Discontinued Aspirin 325 mg PO DAILY Discharge Medication List Levothyroxine Sodium [Synthroid] 75 mcg PO DAILY 11/04/17 [History] Atorvastatin [Lipitor] 20 mg PO HS 02/22/18 [History] Apixaban [Eliquis] 2.5 mg PO BID 02/21/20 [History] Furosemide [Lasix] 40 mg PO DAILY 02/21/20 [History] Metoprolol Tartrate [Lopressor] 25 mg PO DAILY 02/21/20 [History] Prednisolone Acetate/Pf [Prednisolone Acet 1% Eye Drop] 1 drop RIGHT EYE TID 02/21/20 [History] Vitamin D3 (Unknown Strength) 1 tab PO DAILY 02/21/20 [History] Aspirin EC [Ecotrin Low Dose] 81 mg PO DAILY #30 tablet.dr 02/22/20 [Rx] Cephalexin [Keflex] 500 mg PO Q8HR 3 Days #9 cap 02/22/20 [Rx] lisinopriL [Zestril] 5 mg PO DAILY #30 tab 02/22/20 [Rx] Follow up Appointment(s)/Referral(s): Gary Villaseñor MD [Primary Care Provider] - 1-2 days Patient Instructions/Handouts: Syncope (DC) Discharge Disposition: HOME SELF-CARE
[2020-02-22] MEDS ORDERED: ATORVASTATIN 20 MG TAB PO SCH (21:00)
== END 2020-02-22 16:47 | disposition home or self-care (01) ==
LOC: EC 19:17 → 3NCARDOBS 22:03
PROVIDERS: ADMIT Internal Medicine; ATTEND Internal Medicine
DX: R55 Syncope and collapse (principal); R41.0 Disorientation, unspecified; I11.0 Hypertensive heart disease with heart failure; I50.22 Chronic systolic (congestive) heart failure; I49.5 Sick sinus syndrome; N39.0 Urinary tract infection, site not specified; I42.8 Other cardiomyopathies; I48.19 Other persistent atrial fibrillation; E78.5 Hyperlipidemia, unspecified; E11.9 Type 2 diabetes mellitus without complications; E03.9 Hypothyroidism, unspecified; J96.11 Chronic respiratory failure with hypoxia; Z99.81 Dependence on supplemental oxygen; Z87.440 Personal history of urinary (tract) infections; Z95.0 Presence of cardiac pacemaker; Z79.01 Long term (current) use of anticoagulants; Z79.899 Other long term (current) drug therapy; Z79.82 Long term (current) use of aspirin; Z79.890 Hormone replacement therapy; Z83.3 Family history of diabetes mellitus; Z84.1 Family history of disorders of kidney and ureter; Z83.6 Family history of other diseases of the respiratory system
CPT/HCPCS: 96365; 96366; 96361; 99285; 36415; 94760; 93005; 93306; 80053; 83735; 84484 ×2; 85025; 85610; 85730; 81001; 71046; 93880; G0378 ×2; J0696

== ENCOUNTER 2020-04-07 19:48 | Observation (INO) | payer MEDICARE, BC ==
--- NOTE | 2020-04-07 21:31 | XR ---
EXAMINATION TYPE: XR chest 2V DATE OF EXAM: 04/07/2020 COMPARISON: 02/21/2020. HISTORY: Shortness of breath. TECHNIQUE: Frontal and lateral views of the chest are obtained. FINDINGS: There is no focal air space opacity, pleural effusion, or pneumothorax seen. The cardiac silhouette size is within normal limits. The osseous structures are intact. Left AICD noted. IMPRESSION: No acute cardiopulmonary process.
[2020-04-07 21:33] LABS: Basophils # (A) 0.1 k/uL (0-0.2); Basophils % (A) 1 %; Eosinophils # (A) 0.1 k/uL (0-0.7); Eosinophils % (A) 1 %; HGB 14.9 gm/dL (11.4-16.0); Lymphocytes # (A) 1.3 k/uL (1.0-4.8); Lymphocytes % (A) 7 %; MCH 31.5 pg (25.0-35.0); MCV 95.4 fL (80.0-100.0); Mean Platelet Volume 9.7; Monocytes # (A) 0.9 k/uL (0-1.0); Monocytes % (A) 5 %; Neutrophils # (A) 14.5 k/uL (1.3-7.7); Neutrophils % (A) 86 %; Platelet Count 190 k/uL (150-450); RBC 4.72 m/uL (3.80-5.40); RDW 12.9 % (11.5-15.5)
[2020-04-07 21:43] LABS: Partial Thromboplastin Time 23.9 sec (22.0-30.0); Prothrombin Time 10.5 sec (9.0-12.0)
[2020-04-07 21:55] LABS: Albumin 3.4 g/dL (3.5-5.0); Calcium 8.9 mg/dL (8.4-10.2); Magnesium 1.7 mg/dL (1.6-2.3); Potassium 4.2 mmol/L (3.5-5.1); Total Protein 6.5 g/dL (6.3-8.2)
[2020-04-07] MEDS ORDERED: NALOXONE 0.4 MG/ML 1 ML VIAL IV PRN (22:17)
--- NOTE | 2020-04-07 22:20 | ED ---
General Adult HPI - General Chief complaint: Syncope Stated complaint: syncope Time Seen by Provider: 04/07/20 20:02 Source: patient, EMS Mode of arrival: EMS Limitations: no limitations - History of Present Illness Initial comments: 84yo female with extensive PMH including pacemaker (ACID), CAD with stents, CHF, AFib presenting today for chief complaint of syncopal episode. Patient states that she was eating dinner when she woke up vomiting. Patient states that family states patient slumped into chair, they lowered her down, deny head injury and state they did a sternal rub, no CPR. Patient came to and was normal in 2-3 minutes. Patient states she has no current complaints she really does not recall the events of the syncopal episode. She states that is identical episode that happened during Labor Day. She states that she did not know what caused it. Patient states she does know that she has 90% occlusion of her LAD which they're medically managing as her wire repairer to not recommend surgery. Patient states her wire repairer is in [place]. patient denies chest pain, pressure, dizziness, SOB, increased leg swelling, weight gain, cough, fevers, abdominal or back pain. Patient appears in good spirits AAOx4, in no acute distress on arrival. Very pleasant :) - Related Data Home Medications Medication Instructions Recorded Confirmed Levothyroxine Sodium [Synthroid] 75 mcg PO DAILY 11/04/17 04/07/20 Atorvastatin [Lipitor] 20 mg PO HS 02/22/18 04/07/20 Apixaban [Eliquis] 2.5 mg PO BID 02/21/20 04/07/20 Furosemide [Lasix] 40 mg PO DAILY 02/21/20 04/07/20 Prednisolone Acetate/Pf 1 drop RIGHT EYE TID 02/21/20 04/07/20 [Prednisolone Acet 1% Eye Drop] Cholecalciferol [Vitamin D3 (25 1,000 unit PO DAILY 04/07/20 04/07/20 Mcg = 1000 Iu)] Metoprolol Succinate (ER) [Toprol 25 mg PO DAILY 04/07/20 04/07/20 Xl] Previous Rx's Medication Instructions Recorded Aspirin EC [Ecotrin Low Dose] 81 mg PO DAILY #30 tablet. 02/22/20 lisinopriL [Zestril] 5 mg PO DAILY #30 tab 02/22/20 Allergies Allergy/AdvReac Type Severity Reaction Status Date / Time No Known Allergies Allergy Verified 04/07/20 21:06 Review of Systems ROS Statement: Those systems with pertinent positive or pertinent negative responses have been documented in the HPI. ROS Other: All systems not noted in ROS Statement are negative. Past Medical History Past Medical History: Atrial Fibrillation, Diabetes Mellitus, Hypertension, Thyroid Disorder Additional Past Medical History / Comment(s): Congestive heart failure, pacemaker insertion, diabetes Melitus, hypertension and hypothyroid, History of Any Multi-Drug Resistant Organisms: None Reported Past Surgical History: Pacemaker Type of Cardiac Device: Unknown Device Placement Date:: September 2017 Past Psychological History: No Psychological Hx Reported Smoking Status: Never smoker Past Alcohol Use History: None Reported Past Drug Use History: None Reported - Past Family History Mother Family Medical History: Diabetes Mellitus, Renal Disease Father Additional Family Medical History / Comment(s): "Black lung and alcohol." Father worked in the [employer] industry. General Exam - General Exam Comments Initial Comments: General: The patient is awake and alert, in no distress Eye: +3 mm pupils are equal, round and reactive to light, extra-ocular movements are intact. No nystagmus. There is normal conjunctiva bilaterally. No signs of icterus. Ears, nose, mouth and throat: There are moist mucous membranes and no oral lesions. Neck: The neck is supple, there is no tenderness or JVD. Cardiovascular: There is a regular rate and rhythm. No murmur, rub or gallop is appreciated. Respiratory: Lungs are clear to auscultation, respirations are non-labored, anthony ath sounds are equal. No wheezes, stridor, rales, or rhonchi. Gastrointestinal: Soft, non-distended, non-tender abdomen without masses or organomegaly noted. There is no rebound or guarding present. Musculoskeletal: Normal ROM, no tenderness. Strength 5/5. Sensation intact. Radial and DP pulses equal bilaterally 2+. Neurological: A&O x 3. CN II-XII intact, There are no obvious motor or sensory deficits. Coordination appears grossly intact. Speech is normal. Skin: Skin is warm and dry and no rashes or lesions are noted. +1 b/l LE edema, pitting Psychiatric: Cooperative, appropriate mood & affect, normal judgment. Limitations: no limitations Course Vital Signs 04/07/20 04/07/20 19:50 20:54 Temperature 98.1 F Pulse Rate 90 93 Respiratory 18 18 Rate Blood Pressure 150/92 117/80 O2 Sat by Pulse 98 97 Oximetry Medical Decision Making - Medical Decision Making 84yo presenting with syncope, no symptoms. ACID. Patient CXR clear. BNP does not appears to be significantly elevated for age/hx/previous comparison. Patient has some mild b/l swelllng denies increased or SOB. Patient will be admitted for further montiroing on telemetry, awaiting the interrogation of patient's pacemaker. Dr. Morales is agreeable to care plan, Josephine Rojo accepted admission. - Lab Data Result diagrams: 04/07/20 20:54 04/07/20 20:54 Lab Results 04/07/20 04/07/20 04/07/20 Range/Units 20:54 20:54 20:54 WBC 17.0 H (3.8-10.6) k/uL RBC 4.72 (3.80-5.40) m/uL Hgb 14.9 (11.4-16.0) gm/dL Hct 45.0 (34.0-46.0) % MCV 95.4 (80.0-100.0) fL MCH 31.5 (25.0-35.0) pg MCHC 33.0 (31.0-37.0) g/dL RDW 12.9 (11.5-15.5) % Plt Count 190 (150-450) k/uL Neutrophils % 86 % Lymphocytes % 7 % Monocytes % 5 % Eosinophils % 1 % Basophils % 1 % Neutrophils # 14.5 H (1.3-7.7) k/uL Lymphocytes # 1.3 (1.0-4.8) k/uL Monocytes # 0.9 (0-1.0) k/uL Eosinophils # 0.1 (0-0.7) k/uL Basophils # 0.1 (0-0.2) k/uL PT 10.5 (9.0-12.0) sec INR 1.0 (<1.2) APTT 23.9 (22.0-30.0) sec Sodium 135 L (137-145) mmol/L Potassium 4.2 (3.5-5.1) mmol/L Chloride 102 (98-107) mmol/L Carbon Dioxide 28 (22-30) mmol/L Anion Gap 5 mmol/L BUN 24 H (7-17) mg/dL Creatinine 1.02 (0.52-1.04) mg/dL Est GFR (CKD-EPI)AfAm 58 (>60 ml/min/1.73 sqM) Est GFR (CKD-EPI)NonAf 50 (>60 ml/min/1.73 sqM) Glucose 130 H (74-99) mg/dL Plasma Lactic Acid Floyd (0.7-2.0) mmol/L Calcium 8.9 (8.4-10.2) mg/dL Magnesium 1.7 (1.6-2.3) mg/dL Total Bilirubin 1.0 (0.2-1.3) mg/dL AST 29 (14-36) U/L ALT 14 (4-34) U/L Alkaline Phosphatase 96 (38-126) U/L Troponin I (0.000-0.034) ng/mL NT-Pro-B Natriuret Pep pg/mL Total Protein 6.5 (6.3-8.2) g/dL Albumin 3.4 L (3.5-5.0) g/dL Urine Color Urine Appearance (Clear) Urine pH (5.0-8.0) Ur Specific Mcalister (1.001-1.035) Urine Protein (Negative) Urine Glucose (UA) (Negative) Urine Ketones (Negative) Urine Blood (Negative) Urine Nitrite (Negative) Urine Bilirubin (Negative) Urine Urobilinogen (<2.0) mg/dL Ur Leukocyte Esterase (Negative) Urine RBC (0-5) /hpf Urine WBC (0-5) /hpf Urine WBC Clumps (None) /hpf Ur Squamous Epith Cells (0-4) /hpf Urine Bacteria (None) /hpf Hyaline Casts (0-2) /lpf Urine Mucus (None) /hpf 04/07/20 04/07/20 04/07/20 Range/Units 20:54 20:54 20:54 WBC (3.8-10.6) k/uL RBC (3.80-5.40) m/uL Hgb (11.4-16.0) gm/dL Hct (34.0-46.0) % MCV (80.0-100.0) fL MCH (25.0-35.0) pg MCHC (31.0-37.0) g/dL RDW (11.5-15.5) % Plt Count (150-450) k/uL Neutrophils % % Lymphocytes % % Monocytes % % Eosinophils % % Basophils % % Neutrophils # (1.3-7.7) k/uL Lymphocytes # (1.0-4.8) k/uL Monocytes # (0-1.0) k/uL Eosinophils # (0-0.7) k/uL Basophils # (0-0.2) k/uL PT (9.0-12.0) sec INR (<1.2) APTT (22.0-30.0) sec Sodium (137-145) mmol/L Potassium (3.5-5.1) mmol/L Chloride (98-107) mmol/L Carbon Dioxide (22-30) mmol/L Anion Gap mmol/L BUN (7-17) mg/dL Creatinine (0.52-1.04) mg/dL Est GFR (CKD-EPI)AfAm (>60 ml/min/1.73 sqM) Est GFR (CKD-EPI)NonAf (>60 ml/min/1.73 sqM) Glucose (74-99) mg/dL Plasma Lactic Acid Floyd 1.7 (0.7-2.0) mmol/L Calcium (8.4-10.2) mg/dL Magnesium (1.6-2.3) mg/dL Total Bilirubin (0.2-1.3) mg/dL AST (14-36) U/L ALT (4-34) U/L Alkaline Phosphatase (38-126) U/L Troponin I <0.012 (0.000-0.034) ng/mL NT-Pro-B Natriuret Pep 1100 pg/mL Total Protein (6.3-8.2) g/dL Albumin (3.5-5.0) g/dL Urine Color Urine Appearance (Clear) Urine pH (5.0-8.0) Ur Specific Mcalister (1.001-1.035) Urine Protein (Negative) Urine Glucose (UA) (Negative) Urine Ketones (Negative) Urine Blood (Negative) Urine Nitrite (Negative) Urine Bilirubin (Negative) Urine Urobilinogen (<2.0) mg/dL Ur Leukocyte Esterase (Negative) Urine RBC (0-5) /hpf Urine WBC (0-5) /hpf Urine WBC Clumps (None) /hpf Ur Squamous Epith Cells (0-4) /hpf Urine Bacteria (None) /hpf Hyaline Casts (0-2) /lpf Urine Mucus (None) /hpf 04/07/20 Range/Units 22:27 WBC (3.8-10.6) k/uL RBC (3.80-5.40) m/uL Hgb (11.4-16.0) gm/dL Hct (34.0-46.0) % MCV (80.0-100.0) fL MCH (25.0-35.0) pg MCHC (31.0-37.0) g/dL RDW (11.5-15.5) % Plt Count (150-450) k/uL Neutrophils % % Lymphocytes % % Monocytes % % Eosinophils % % Basophils % % Neutrophils # (1.3-7.7) k/uL Lymphocytes # (1.0-4.8) k/uL Monocytes # (0-1.0) k/uL Eosinophils # (0-0.7) k/uL Basophils # (0-0.2) k/uL PT (9.0-12.0) sec INR (<1.2) APTT (22.0-30.0) sec Sodium (137-145) mmol/L Potassium (3.5-5.1) mmol/L Chloride (98-107) mmol/L Carbon Dioxide (22-30) mmol/L Anion Gap mmol/L BUN (7-17) mg/dL Creatinine (0.52-1.04) mg/dL Est GFR (CKD-EPI)AfAm (>60 ml/min/1.73 sqM) Est GFR (CKD-EPI)NonAf (>60 ml/min/1.73 sqM) Glucose (74-99) mg/dL Plasma Lactic Acid Floyd (0.7-2.0) mmol/L Calcium (8.4-10.2) mg/dL Magnesium (1.6-2.3) mg/dL Total Bilirubin (0.2-1.3) mg/dL AST (14-36) U/L ALT (4-34) U/L Alkaline Phosphatase (38-126) U/L Troponin I (0.000-0.034) ng/mL NT-Pro-B Natriuret Pep pg/mL Total Protein (6.3-8.2) g/dL Albumin (3.5-5.0) g/dL Urine Color Yellow Urine Appearance Cloudy H (Clear) Urine pH 5.5 (5.0-8.0) Ur Specific Mcalister 1.016 (1.001-1.035) Urine Protein Negative (Negative) Urine Glucose (UA) Negative (Negative) Urine Ketones Negative (Negative) Urine Blood Negative (Negative) Urine Nitrite Positive H (Negative) Urine Bilirubin Negative (Negative) Urine Urobilinogen <2.0 (<2.0) mg/dL Ur Leukocyte Esterase Large H (Negative) Urine RBC 2 (0-5) /hpf Urine WBC 102 H (0-5) /hpf Urine WBC Clumps Few H (None) /hpf Ur Squamous Epith Cells 3 (0-4) /hpf Urine Bacteria Rare H (None) /hpf Hyaline Casts 11 H (0-2) /lpf Urine Mucus Occasional H (None) /hpf Disposition Clinical Impression: Syncope, UTI (urinary tract infection) Disposition: ADMITTED IP TO THIS HOSP Condition: Stable Is patient prescribed a controlled substance at d/c from ED?: No Referrals: Gary Villaseñor MD [Primary Care Provider] - 1-2 days Time of Disposition: 22:50 Decision to Admit Reason: Admit from EC Decision Date: 04/07/20 Decision Time: 22:50
[2020-04-07 22:39] LABS: Appearance,Urine Cloudy (Clear); Bacteria,Urine Rare /hpf; Bilirubin,Urine Negative (Negative); Blood,Urine Negative (Negative); Color,Urine Yellow; Glucose,Urine (UA) Negative (Negative); Hyaline Casts,Urine 11 /lpf (0-2); Ketones,Urine Negative (Negative); Leukocyte Esterase,Urine Large (Negative); Mucus,Urine Occasional /hpf; Nitrite,Urine Positive (Negative); PH, Urine 5.5 (5.0-8.0); Protein,Urine Negative (Negative); RBC,Urine 2 /hpf (0-5); Specific Gravity,Urine 1.016 (1.001-1.035); Squamous Epithelial Cell,Urine 3 /hpf (0-4); Urobilinogen,Urine <2.0 mg/dL (<2.0); WBC,Urine 102 /hpf (0-5)
--- NOTE | 2020-04-08 00:41 | P.HPIM ---
History of Present Illness H&P Date: 04/07/20 The patient is an 84-year-old female with a PMH of chronic systolic CHF, persistent A. fib on Eliquis, sick sinus syndrome status post pacemaker placement, type II DM, hypertension, and hyperlipidemia who was brought into the emergency room after she had a syncopal episode. The history was supplemented by the nephew at the bedside. The patient was reportedly no usual state of health throughout the day. The patient was reportedly at the table eating her supper with family when she suddenly became pale and unresponsive. The family caught the patient and eased her down to the ground where they noticed that her breathing was shallow. The patient apparently slowly regained consciousness within a minute or two. The patient does not recall the episode and last remembers eating her food and then waking up on the floor. She denied any prodromal symptoms at all, denied urinary incontinence, and denied tongue biting. The family did not notice any abnormal shaking movements. At time of interview, the patient noted feeling back to her baseline and denied any active complaints. She denied experiencing chest discomfort, shortness of breath, palpitations, nausea, vomiting, or diaphoresis. Also denied abdominal pain, fever, chills, or cough. Of note, the patient was admitted to the hospital with similar complaints on 02/22/20 at which time an interrogation of the pacemaker was unremarkable. EKG in the emergency room revealed of the paced rhythm at 91 bpm with occasional PVCs. Chest x-ray was unremarkable. Laboratory evaluation was reviewed with a WC count 17, sodium 135, BUN 24, creatinine 1.02, and glucose 130. Review of Systems Pertinent positives and negatives as discussed in HPI, a complete review of systems was performed and all other systems are negative. Past Medical History Past Medical History: Atrial Fibrillation, Diabetes Mellitus, Hypertension, Thyroid Disorder Additional Past Medical History / Comment(s): Congestive heart failure, pacemaker insertion, diabetes Melitus, hypertension and hypothyroid, History of Any Multi-Drug Resistant Organisms: None Reported Past Surgical History: Pacemaker Type of Cardiac Device: Unknown Device Placement Date:: September 2017 Past Psychological History: No Psychological Hx Reported Smoking Status: Never smoker Past Alcohol Use History: None Reported Past Drug Use History: None Reported - Past Family History Mother Family Medical History: Diabetes Mellitus, Renal Disease Father Additional Family Medical History / Comment(s): "Black lung and alcohol." Father worked in the coal industry. Medications and Allergies Home Medications Medication Instructions Recorded Confirmed Type Levothyroxine Sodium [Synthroid] 75 mcg PO DAILY 11/04/17 04/07/20 History Atorvastatin [Lipitor] 20 mg PO HS 02/22/18 04/07/20 History Apixaban [Eliquis] 2.5 mg PO BID 02/21/20 04/07/20 History Furosemide [Lasix] 40 mg PO DAILY 02/21/20 04/07/20 History Prednisolone Acetate/Pf 1 drop RIGHT EYE TID 02/21/20 04/07/20 History [Prednisolone Acet 1% Eye Drop] Aspirin EC [Ecotrin Low Dose] 81 mg PO DAILY #30 tablet.dr 02/22/20 04/07/20 Rx lisinopriL [Zestril] 5 mg PO DAILY #30 tab 02/22/20 04/07/20 Rx Cholecalciferol [Vitamin D3 (25 1,000 unit PO DAILY 04/07/20 04/07/20 History Mcg = 1000 Iu)] Metoprolol Succinate (ER) [Toprol 25 mg PO DAILY 04/07/20 04/07/20 History Xl] Allergies Allergy/AdvReac Type Severity Reaction Status Date / Time No Known Allergies Allergy Verified 04/07/20 21:06 Physical Exam Vitals: Vital Signs Temp Pulse Resp BP Pulse Ox 04/07/20 23:20 98.1 F 95 18 129/76 98 04/07/20 20:54 93 18 117/80 97 04/07/20 19:50 98.1 F 90 18 150/92 98 Intake and Output 04/07/20 04/07/20 04/08/20 14:59 22:59 06:59 Other: Weight 89.358 kg General: non toxic, no distress, appears at stated age, obese Derm: no unusual rashes/lesions no unusual ecchymoses, warm, dry Head: atraumatic, normocephalic, symmetric Eyes: EOMI, no lid lag, anicteric sclera, pupils equal round reactive to light ENT: Nose and ears atraumatic, no thrush, no pharyngeal erythema Neck: No thyromegaly, no cervical lymphadenopathy, trachea midline, supple Mouth: no lip lesion, mucus membranes moist Cardiovascular: S1S2 reg, no murmur, positive posterior tibial pulse bilateral, no edema, capillary refill less than 2 seconds Lungs: CTA bilateral, no rhonchi, no rales , no accessory muscle use Abdominal: soft, nontender to palpation, no guarding, no appreciable organomegaly, normal bowel sounds Ext: no gross muscle atrophy, muscle strength 5 out of 5 in all 4 extremities grossly, no contractures, Neuro: CN II-XI grossly intact, light touch intact all 4 extremities, finger to nose within normal limits, Psych: Alert, oriented, appropriate affect Results CBC & Chem 7: 04/07/20 20:54 04/07/20 20:54 Labs: Abnormal Lab Results - Last 24 Hours (Table) 04/07/20 04/07/20 04/07/20 Range/Units 20:54 20:54 22:27 WBC 17.0 H (3.8-10.6) k/uL Neutrophils # 14.5 H (1.3-7.7) k/uL Sodium 135 L (137-145) mmol/L BUN 24 H (7-17) mg/dL Glucose 130 H (74-99) mg/dL Albumin 3.4 L (3.5-5.0) g/dL Urine Appearance Cloudy H (Clear) Urine Nitrite Positive H (Negative) Ur Leukocyte Esterase Large H (Negative) Urine WBC 102 H (0-5) /hpf Urine WBC Clumps Few H (None) /hpf Urine Bacteria Rare H (None) /hpf Hyaline Casts 11 H (0-2) /lpf Urine Mucus Occasional H (None) /hpf Assessment and Plan Plan: Syncope, suspected cardiac in nature -Continue cardiac monitoring -Pacemaker interrogation -Cardiac consult Abnormal UA -Patient denying urinary complaints -Likely colonization -Status post ceftriaxone in the emergency room -Hold off on further antibiotics at this time Chronic conditions: A. fib, systolic CHF, hypertension, hyperlipidemia, type II DM -Continue with home meds -Lispro insulin sliding scale with blood glucose monitoring -Check A1c DVT prophylaxis -Eliquis The patient is admitted with an anticipated less than 2 midnight stay for evaluation of syncope CODE STATUS: Full Code Discussed with: patient, nephew Anticipated discharge date: 1-[address]: Home A total of 40 minutes was spent on the care of this complex patient more than 50% of the time was spent in counseling and care coordination.
[2020-04-08] MEDS: APIXABAN 2.5 MG TABLET PO SCH ×3 (01:09→20:44)
[2020-04-08] MEDS: SODIUM CHLORIDE 0.9% 1,000 ML IV SCH ×2 (01:09→13:11)
[2020-04-08] MEDS: ATORVASTATIN 20 MG TAB PO SCH ×2 (01:09→20:44)
[2020-04-08] MEDS: LEVOTHYROXINE 75 MCG TAB PO SCH (06:10)
[2020-04-08 07:19] LABS: Glucose,Whole Blood 134 mg/dL (75-99)
[2020-04-08 07:24] LABS: HCT 42.6 % (34.0-46.0); MCH 31.6 pg (25.0-35.0); MCV 95.9 fL (80.0-100.0); Platelet Count 162 k/uL (150-450); RBC 4.44 m/uL (3.80-5.40); RDW 12.8 % (11.5-15.5); WBC 14.4 k/uL (3.8-10.6)
[2020-04-08] MEDS: INSULIN ASPART (NovoLOG) 100 UNIT/ML VIAL SQ SCH ×4 (07:38→20:45)
[2020-04-08 07:44] LABS: Calcium 8.4 mg/dL (8.4-10.2); Potassium 3.9 mmol/L (3.5-5.1)
[2020-04-08 08:46] VITALS: RESP 16
[2020-04-08] MEDS: ASPIRIN 81 MG PO SCH (10:18)
[2020-04-08] MEDS: FUROSEMIDE 40 MG TAB PO SCH (10:18)
[2020-04-08] MEDS: lisinopriL 5 MG TAB PO SCH (10:19)
[2020-04-08] MEDS: METOPROLOL SUCCINATE (ER) 25 MG TAB.ER.24H PO SCH (10:19)
[2020-04-08 11:13] LABS: Glucose,Whole Blood 183 mg/dL (75-99)
[2020-04-08 12:18] LABS: Hemoglobin A1C 6.6 % (4.0-6.0)
--- NOTE | 2020-04-08 12:31 | P.CRDCN ---
History of Present Illness Consult date: 04/08/20 History of present illness: CHIEF COMPLAINT: Syncope HISTORY OF PRESENT ILLNESS: This is a 84-year old female with a past medical history significant for coronary artery disease, congestive heart failure, atrial fibrillation on long-term anticoagulation, pacemaker insertion, hypertension, and hyperlipidemia. Patient follows with a molder automobile carpets out [facility]. We have been asked to see the patient in consultation for syncope. Patient states she was with her family yesterday and was feeling in her usual state of health beside some abdominal cramping. She states she was eating dinner at the kitchen table and apparently her family said she was not responsive. The patient states they laid her on the floor. She states her family member thinks she may have not been breathing for a couple seconds and apparently he did a sternal rub and patient became responsive. Patient denies any dizziness or lightheadedness. Denies chest pain or shortness of breath. Patient states she underwent a cardiac catheterization last month with her molder automobile carpets out of [place] and was told she had some blockages in the vessels of her heart but was going to be treated with medications and did not have any stents placed at that time. DIAGNOSTICS: EKG reveals paced rhythm Chest xray no acute cardiopulmonary process Laboratory data: WBC 17.0. Hemoglobin 14.9. Platelet count 190. Sodium 135. Potassium 4.2. BUN 24. Creatinine 1.02. Lactic acid 1.7. Troponin negative 1. Urinalysis positive for nitrites and large leukocyte esterase Current home cardiac medications include metoprolol 25 mg daily, lisinopril 5 mg daily, Lasix 40 mg daily, Lipitor 20 mg daily, aspirin 81 mg daily, and Eliquis 2.5 mg twice a day Echocardiogram completed in February 2020 reveals ejection fraction between 50 and 55%, moderate mitral regurgitation, moderate tricuspid regurgitation, and moderate pulmonary hypertension REVIEW OF SYSTEMS: At the time of my exam: CONSTITUTIONAL: Denies fever or chills. HEENT: Denies blurred vision, vision changes, or eye pain. Denies hemoptysis CARDIOVASCULAR: Denies chest pain, orthopnea, PND or palpitations RESPIRATORY: No shortness of breath. GASTROINTESTINAL: Denies abdominal pain. Denies nausea or vomiting. HEMATOLOGIC: Denies bleeding disorders. GENITOURINARY: Denies any blood in urine. SKIN: Denies pruitis. Denies rash. PHYSICAL EXAM: VITAL SIGNS: Reviewed. GENERAL: Well-developed in no acute distress. HEENT: Head is normocephalic. Pupils are equal, round. Sclerae anicteric. Mucous membranes of the mouth are moist. Neck supple. No JVD or thyromegaly LUNGS: Respirations even and unlabored. Lungs essentially clear to auscultation bilaterally. HEART: Irregular rate and rhythm. S1 and S2 heard. ABDOMEN: Soft. Nondistended. Nontender. EXTREMITIES: Normal range of motion. No clubbing or cyanosis. Peripheral pulse s intact. No lower extremity edema NEUROLOGIC: Awake and alert. Oriented x 3. ASSESSMENT: Syncope, suspect vasovagal in nature Leukocytosis with suspected urinary tract infection Chronic persistent atrial fibrillation, on long-term anticoagulation with Eliquis History of coronary artery disease, per patient History of PPM insertion Chronic diastolic congestive heart failure, currently euvolemic Hypertension Hyperlipidemia Diabetes mellitus, type II PLAN: Continue to trend troponin level No need to repeat echo as this was just performed last month Continue telemetry monitoring Check orthostatic blood pressures Pacemaker interrogated. Report reviewed and unremarkable Continue to monitor patient overnight. Anticipate discharge home tomorrow. Nurse practitioner note has been reviewed by physician. Signing provider agrees with the documented findings, assessment, and plan of care. Past Medical History Past Medical History: Atrial Fibrillation, Diabetes Mellitus, Hypertension, Thyroid Disorder Additional Past Medical History / Comment(s): Congestive heart failure, pacemaker insertion, diabetes Melitus, hypertension and hypothyroid, History of Any Multi-Drug Resistant Organisms: None Reported Past Surgical History: Pacemaker Past Anesthesia/Blood Transfusion Reactions: No Reported Reaction Type of Cardiac Device: Unknown Device Placement Date:: September 2017 Past Psychological History: No Psychological Hx Reported Smoking Status: Never smoker Past Alcohol Use History: None Reported Past Drug Use History: None Reported - Past Family History Mother Family Medical History: Diabetes Mellitus, Renal Disease Father Additional Family Medical History / Comment(s): "Black lung and alcohol." Father worked in the [employer] industry. Medications and Allergies Home Medications Medication Instructions Recorded Confirmed Type Levothyroxine Sodium [Synthroid] 75 mcg PO DAILY 11/04/17 04/07/20 History Atorvastatin [Lipitor] 20 mg PO HS 02/22/18 04/07/20 History Apixaban [Eliquis] 2.5 mg PO BID 02/21/20 04/07/20 History Furosemide [Lasix] 40 mg PO DAILY 02/21/20 04/07/20 History Prednisolone Acetate/Pf 1 drop RIGHT EYE TID 02/21/20 04/07/20 History [Prednisolone Acet 1% Eye Drop] Aspirin EC [Ecotrin Low Dose] 81 mg PO DAILY #30 tablet. 02/22/20 04/07/20 Rx lisinopriL [Zestril] 5 mg PO DAILY #30 tab 02/22/20 04/07/20 Rx Cholecalciferol [Vitamin D3 (25 1,000 unit PO DAILY 04/07/20 04/07/20 History Mcg = 1000 Iu)] Metoprolol Succinate (ER) [Toprol 25 mg PO DAILY 04/07/20 04/07/20 History Xl] Allergies Allergy/AdvReac Type Severity Reaction Status Date / Time No Known Allergies Allergy Verified 04/07/20 21:06 Physical Exam Vitals: Vital Signs Temp Pulse Pulse Pulse Pulse Pulse Resp 04/08/20 08:44 98.4 F 88 95 91 16 04/08/20 03:30 97.4 F L 90 04/07/20 23:52 97.6 F 87 18 04/07/20 23:20 98.1 F 95 18 04/07/20 20:54 93 18 04/07/20 19:50 98.1 F 90 18 BP BP BP BP BP Pulse Ox 04/08/20 08:44 102/67 100/60 117/73 95 04/08/20 03:30 129/78 99 04/07/20 23:52 139/88 98 04/07/20 23:20 129/76 98 04/07/20 20:54 117/80 97 04/07/20 19:50 150/92 98 Intake and Output 04/07/20 04/08/20 04/08/20 22:59 06:59 14:59 Intake Total 0 Output Total 120 Balance -120 Intake: Oral 0 Output: Urine 120 Other: Voiding Method Toilet Toilet # Voids 1 Weight 89.358 kg 89.358 kg Results 04/08/20 07:08 04/08/20 07:08 Cardiac Enzymes 04/07/20 04/07/20 Range/Units 20:54 20:54 AST 29 (14-36) U/L Troponin I <0.012 (0.000-0.034) ng/mL Coagulation 10/23/20 Range/Units 20:54 PT 10.5 (9.0-12.0) sec APTT 23.9 (22.0-30.0) sec CBC 04/07/20 04/08/20 Range/Units 20:54 07:08 WBC 17.0 H 14.4 H (3.8-10.6) k/uL RBC 4.72 4.44 (3.80-5.40) m/uL Hgb 14.9 14.0 (11.4-16.0) gm/dL Hct 45.0 42.6 (34.0-46.0) % Plt Count 190 162 (150-450) k/uL Comprehensive Metabolic Panel 04/07/20 04/08/20 Range/Units 20:54 07:08 Sodium 135 L 137 (137-145) mmol/L Potassium 4.2 3.9 (3.5-5.1) mmol/L Chloride 102 104 (98-107) mmol/L Carbon Dioxide 28 28 (22-30) mmol/L BUN 24 H 24 H (7-17) mg/dL Creatinine 1.02 0.89 (0.52-1.04) mg/dL Glucose 130 H 146 H (74-99) mg/dL Calcium 8.9 8.4 (8.4-10.2) mg/dL AST 29 (14-36) U/L ALT 14 (4-34) U/L Alkaline Phosphatase 96 (38-126) U/L Total Protein 6.5 (6.3-8.2) g/dL Albumin 3.4 L (3.5-5.0) g/dL Current Medications Generic Name Dose Route Start Last Admin Trade Name Freq PRN Reason Stop Dose Admin Apixaban 2.5 mg 04/08/20 00:45 04/08/20 01:09 Apixaban 2.5 Mg Tablet PO 2.5 mg BID BRANDYN Administration Aspirin 81 mg 04/08/20 09:00 Aspirin 81 Mg PO DAILY BRANDYN Atorvastatin Calcium 20 mg 04/08/20 00:45 04/08/20 01:09 Atorvastatin 20 Mg Tab PO 20 mg HS BRANDYN Administration Furosemide 40 mg 04/08/20 09:00 Furosemide 40 Mg Tab PO DAILY [facility] Sodium Chloride 1,000 mls @ 75 mls/hr 04/07/20 23:00 04/08/20 01:09 Saline 0.9% IV 75 mls/hr .[id number] BRANDYN Administration Ceftriaxone Sodium 1 gm/ 50 mls @ 100 mls/hr 04/08/20 09:00 Sodium Chloride IVPB Q24HR [facility] Insulin Aspart 0 unit 04/08/20 07:30 04/08/20 07:38 Insulin Aspart (Novolog) 100 Unit/Ml Vial SQ Not Given ACHS [facility] Protocol Levothyroxine Sodium 75 mcg 04/08/20 06:30 04/08/20 06:10 Levothyroxine 75 Mcg Tab PO 75 mcg DAILY@0630 BRANDYN Administration Lisinopril 5 mg 04/08/20 09:00 Lisinopril 5 Mg Tab PO DAILY [facility] Metoprolol Succinate 25 mg 04/08/20 09:00 Metoprolol Succinate (Er) 25 Mg Tab.Er.24h PO DAILY [facility] Naloxone HCl 0.2 mg 04/07/20 22:17 Naloxone 0.4 Mg/Ml 1 Ml Vial IV Q2M PRN Opioid Reversal Intake and Output 04/07/20 04/08/20 04/08/20 22:59 06:59 14:59 Intake Total 0 Output Total 120 Balance -120 Intake: Oral 0 Output: Urine 120 Other: Voiding Method Toilet Toilet # Voids 1 Weight 89.358 kg 89.358 kg 04/08/20 07:08 04/08/20 07:08
--- NOTE | 2020-04-08 17:47 | P.PN ---
Subjective Progress Note Date: 04/08/20 Patient is doing well today. She denies any dizziness or lightheadedness. Objective - Vital Signs Vital signs: Vital Signs Temp 98.1 F 04/08/20 15:00 Pulse 91 04/08/20 15:00 Resp 16 04/08/20 15:00 BP 97/50 04/08/20 15:00 Pulse Ox 91 L 04/08/20 15:00 Intake & Output 04/07/20 04/08/20 04/08/20 18:59 06:59 18:59 Intake Total 0 950 Output Total 120 Balance -120 950 Weight 89.358 kg Intake: Intake, IV Titration 650 Amount Sodium Chloride 0.9% 1, 600 000 ml @ 75 mls/hr IV . [id number] BRANDYN Rx#:[id number] cefTRIAXone 1 gm In 50 Sodium Chloride 0.9% 50 ml @ 100 mls/hr IVPB Q24HR BRANDYN Rx#:[id number] Oral 0 300 Output: Urine 120 Other: Voiding Method Toilet Toilet # Voids 1 2 - Exam General: The patient is awake and alert, in no distress Eye: there is normal conjunctiva bilaterally. Neck: The neck is supple, there is no JVD. Cardiovascular: Normal S1-S2, no S3-S4, no murmurs. Respiratory: Lungs clear to auscultation bilaterally Gastrointestinal: Abdomen is soft, nontender Musculoskeletal: There is no pedal edema. Neurological:. Speech is normal. Skin: Skin is warm and dry - Labs CBC & Chem 7: 04/08/20 07:08 04/08/20 07:08 Labs: Abnormal Lab Results - Last 24 Hours (Table) 04/07/20 04/07/20 04/07/20 Range/Units 20:54 20:54 22:27 WBC 17.0 H (3.8-10.6) k/uL Neutrophils # 14.5 H (1.3-7.7) k/uL Sodium 135 L (137-145) mmol/L BUN 24 H (7-17) mg/dL Glucose 130 H (74-99) mg/dL POC Glucose (mg/dL) (75-99) mg/dL Hemoglobin A1c (4.0-6.0) % Albumin 3.4 L (3.5-5.0) g/dL Urine Appearance Cloudy H (Clear) Urine Nitrite Positive H (Negative) Ur Leukocyte Esterase Large H (Negative) Urine WBC 102 H (0-5) /hpf Urine WBC Clumps Few H (None) /hpf Urine Bacteria Rare H (None) /hpf Hyaline Casts 11 H (0-2) /lpf Urine Mucus Occasional H (None) /hpf 04/08/20 04/08/20 04/08/20 Range/Units 07:08 07:08 07:08 WBC 14.4 H (3.8-10.6) k/uL Neutrophils # (1.3-7.7) k/uL Sodium (137-145) mmol/L BUN 24 H (7-17) mg/dL Glucose 146 H (74-99) mg/dL POC Glucose (mg/dL) (75-99) mg/dL Hemoglobin A1c 6.6 H (4.0-6.0) % Albumin (3.5-5.0) g/dL Urine Appearance (Clear) Urine Nitrite (Negative) Ur Leukocyte Esterase (Negative) Urine WBC (0-5) /hpf Urine WBC Clumps (None) /hpf Urine Bacteria (None) /hpf Hyaline Casts (0-2) /lpf Urine Mucus (None) /hpf 04/08/20 04/08/20 Range/Units 07:16 11:11 WBC (3.8-10.6) k/uL Neutrophils # (1.3-7.7) k/uL Sodium (137-145) mmol/L BUN (7-17) mg/dL Glucose (74-99) mg/dL POC Glucose (mg/dL) 134 H 183 H (75-99) mg/dL Hemoglobin A1c (4.0-6.0) % Albumin (3.5-5.0) g/dL Urine Appearance (Clear) Urine Nitrite (Negative) Ur Leukocyte Esterase (Negative) Urine WBC (0-5) /hpf Urine WBC Clumps (None) /hpf Urine Bacteria (None) /hpf Hyaline Casts (0-2) /lpf Urine Mucus (None) /hpf Assessment and Plan Assessment: Syncope, s -Exact etiology unclear. Orthostatic blood pressure checked and negative. Echocardiogram and carotid Doppler done last month with no significant valvular abnormality or hemodynamic doses. Seen and evaluated by cardiology. Serial troponin negative 3 sets. -Continue cardiac monitoring -Pacemaker interrogation with no abnormalities. -Cardiac consult appreciated UTI, started on IV ceftriaxone awaiting urine culture Chronic conditions: A. fib, systolic CHF, hypertension, hyperlipidemia, type II DM -Continue with home meds -Lispro insulin sliding scale with blood glucose monitoring - A1c 6.6 DVT prophylaxis -Jose
[2020-04-08 17:50] LABS: Glucose,Whole Blood 128 mg/dL (75-99)
[2020-04-08 20:39] LABS: Glucose,Whole Blood 149 mg/dL (75-99)
[2020-04-09 06:27] LABS: Glucose,Whole Blood 92 mg/dL (75-99)
[2020-04-09] MEDS: LEVOTHYROXINE 75 MCG TAB PO SCH (06:30)
[2020-04-09] MEDS: INSULIN ASPART (NovoLOG) 100 UNIT/ML VIAL SQ SCH (06:31)
[2020-04-09 07:53] LABS: Basophils # (A) 0.1 k/uL (0-0.2); Basophils % (A) 1 %; Eosinophils # (A) 0.1 k/uL (0-0.7); Eosinophils % (A) 2 %; HCT 39.3 % (34.0-46.0); HGB 12.9 gm/dL (11.4-16.0); Lymphocytes # (A) 1.8 k/uL (1.0-4.8); Lymphocytes % (A) 22 %; MCH 31.8 pg (25.0-35.0); MCV 96.3 fL (80.0-100.0); Monocytes # (A) 0.6 k/uL (0-1.0); Monocytes % (A) 7 %; Neutrophils # (A) 5.4 k/uL (1.3-7.7); Neutrophils % (A) 66 %; Platelet Count 140 k/uL (150-450); RBC 4.08 m/uL (3.80-5.40); RDW 12.8 % (11.5-15.5); WBC 8.1 k/uL (3.8-10.6)
[2020-04-09 08:05] VITALS: BP 120/72; PULSE 93; TEMP 97.4
[2020-04-09 08:11] LABS: Calcium 8.1 mg/dL (8.4-10.2); Potassium 3.6 mmol/L (3.5-5.1)
[2020-04-09] MEDS: APIXABAN 2.5 MG TABLET PO SCH (08:54)
[2020-04-09] MEDS: METOPROLOL SUCCINATE (ER) 25 MG TAB.ER.24H PO SCH (08:54)
[2020-04-09] MEDS: FUROSEMIDE 40 MG TAB PO SCH (08:54)
[2020-04-09] MEDS: ASPIRIN 81 MG PO SCH (08:54)
[2020-04-09] MEDS: lisinopriL 5 MG TAB PO SCH (08:54)
--- NOTE | 2020-04-09 10:48 | P.PN ---
Subjective Progress Note Date: 04/09/20 CHIEF COMPLAINT: Syncope HISTORY OF PRESENT ILLNESS: Patient examined this morning at the bedside. Patient denies chest pain or pressure. Denies shortness of breath. No further episodes of syncope noted. No arrhythmias noted on telemetry. Vital signs stable. PHYSICAL EXAM: VITAL SIGNS: Reviewed. GENERAL: Well-developed in no acute distress. HEENT: Head is normocephalic. Pupils are equal, round. Sclerae anicteric. Mucous membranes of the mouth are moist. Neck supple. No JVD or thyromegaly LUNGS: Respirations even and unlabored. Lungs essentially clear to auscultation bilaterally. HEART: Irregular rate and rhythm. S1 and S2 heard. ABDOMEN: Soft. Nondistended. Nontender. EXTREMITIES: Normal range of motion. No clubbing or cyanosis. Peripheral pulses intact. No lower extremity edema NEUROLOGIC: Awake and alert. Oriented x 3. ASSESSMENT: Syncope, suspect vasovagal in nature Leukocytosis with suspected urinary tract infection Chronic persistent atrial fibrillation, on long-term anticoagulation with Eliquis History of coronary artery disease, per patient History of PPM insertion Chronic diastolic congestive heart failure, currently euvolemic Hypertension Hyperlipidemia Diabetes mellitus, type II PLAN: Continue current cardiac medications Patient be discharged home today from a cardiac perspective. She is to follow-up with her automotive warranty administrator in [place] on an outpatient basis. Nurse practitioner note has been reviewed by physician. Signing provider agrees with the documented findings, assessment, and plan of care. Objective - Vital Signs Vital signs: Vital Signs Temp 97.4 F L 04/09/20 08:04 Pulse 93 04/09/20 08:04 Resp 16 04/09/20 08:04 BP 120/72 04/09/20 08:04 Pulse Ox 98 04/09/20 08:04 Intake & Output 04/08/20 04/09/20 04/09/20 18:59 06:59 18:59 Intake Total 1400 0 150 Output Total 0 Balance 1400 0 150 Intake: Intake, IV Titration 950 50 Amount Sodium Chloride 0.9% 1, 900 000 ml @ 75 mls/hr IV . [id number] BRANDYN Rx#:[id number] cefTRIAXone 1 gm In 50 50 Sodium Chloride 0.9% 50 ml @ 100 mls/hr IVPB Q24HR BRANDYN Rx#:[id number] Oral 450 0 100 Output: Urine 0 Other: Voiding Method Toilet Toilet Toilet # Voids 1 0 1 - Labs CBC & Chem 7: 04/09/20 07:25 04/09/20 07:25 Labs: Abnormal Lab Results - Last 24 Hours (Table) 04/08/20 04/08/20 04/08/20 Range/Units 07:08 11:11 17:48 Plt Count (150-450) k/uL Chloride (98-107) mmol/L BUN (7-17) mg/dL Glucose (74-99) mg/dL POC Glucose (mg/dL) 183 H 128 H (75-99) mg/dL Hemoglobin A1c 6.6 H (4.0-6.0) % Calcium (8.4-10.2) mg/dL 04/08/20 04/09/20 04/09/20 Range/Units 20:37 07:25 07:25 Plt Count 140 L (150-450) k/uL Chloride 108 H (98-107) mmol/L BUN 21 H (7-17) mg/dL Glucose 100 H (74-99) mg/dL POC Glucose (mg/dL) 149 H (75-99) mg/dL Hemoglobin A1c (4.0-6.0) % Calcium 8.1 L (8.4-10.2) mg/dL Microbiology - Last 24 Hours (Table) 04/07/20 23:27 Blood Culture - Preliminary Blood No Growth after 24 hours
--- NOTE | 2020-04-09 11:26 | P.DS ---
Providers Date of admission: 04/07/20 22:13 Expected date of discharge: 04/09/20 Attending physician: Christopher Rojo MD Consults: 04/08/20 09:16 Consult Physician Routine Consulting Provider: Mert Jean Baptiste Consult Reason/Comments: syncope Do you want consulting provider notified?: Yes Primary care physician: [facility] Course: This is a 84-year-old female with past medical history noted below presented to the emergency room with a syncopal episode. Patient was evaluated in the ER and placed on observation for further management of her medical problems noted below. Syncope, -Exact etiology unclear. May be vasovagal. Orthostatic blood pressure checked and negative. Echocardiogram and carotid Doppler done last month with no significant valvular abnormality or hemodynamic doses. Seen and evaluated by cardiology. Serial troponin negative 3 sets. She was cleared by cardiology for discharge. 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 -Pacemaker interrogation with no abnormalities. UTI, started on IV ceftriaxone. Unfortunately urine culture were not sent in the ER. Within a short course of antibiotic with Keflex. Patient is a symptomatic Chronic conditions: A. fib, systolic CHF, hypertension, hyperlipidemia, type II DM -Continue with home meds -Lispro insulin sliding scale with blood glucose monitoring - A1c 6.6 Patient Condition at Discharge: Stable Plan - Discharge Summary New Discharge Prescriptions: No Action Levothyroxine Sodium [Synthroid] 75 mcg PO DAILY Atorvastatin [Lipitor] 20 mg PO HS Prednisolone Acetate/Pf [Prednisolone Acet 1% Eye Drop] 1 drop RIGHT EYE TID Furosemide [Lasix] 40 mg PO DAILY Apixaban [Eliquis] 2.5 mg PO BID Aspirin EC [Ecotrin Low Dose] 81 mg PO DAILY #30 tablet. lisinopriL [Zestril] 5 mg PO DAILY #30 tab Cholecalciferol [Vitamin D3 (25 Mcg = 1000 Iu)] 1,000 unit PO DAILY Metoprolol Succinate (ER) [Toprol Xl] 25 mg PO DAILY Discharge Medication List Levothyroxine Sodium [Synthroid] 75 mcg PO DAILY 11/04/17 [History] Atorvastatin [Lipitor] 20 mg PO HS 02/22/18 [History] Apixaban [Eliquis] 2.5 mg PO BID 02/21/20 [History] Furosemide [Lasix] 40 mg PO DAILY 02/21/20 [History] Prednisolone Acetate/Pf [Prednisolone Acet 1% Eye Drop] 1 drop RIGHT EYE TID 02/21/20 [History] Aspirin EC [Ecotrin Low Dose] 81 mg PO DAILY #30 tablet.dr 02/22/20 [Rx] lisinopriL [Zestril] 5 mg PO DAILY #30 tab 02/22/20 [Rx] Cholecalciferol [Vitamin D3 (25 Mcg = 1000 Iu)] 1,000 unit PO DAILY 04/07/20 [History] Metoprolol Succinate (ER) [Toprol Xl] 25 mg PO DAILY 04/07/20 [History] Follow up Appointment(s)/Referral(s): Gary Villaseñor MD [Primary Care Provider] - 1-2 days
== END 2020-04-09 14:20 | disposition home or self-care (01) ==
LOC: EC 19:48 → 3NCARDOBS 22:13
PROVIDERS: ADMIT Internal Medicine; ATTEND Internal Medicine
DX: R55 Syncope and collapse (principal); N39.0 Urinary tract infection, site not specified; I48.19 Other persistent atrial fibrillation; E03.9 Hypothyroidism, unspecified; E11.9 Type 2 diabetes mellitus without complications; E78.5 Hyperlipidemia, unspecified; I11.0 Hypertensive heart disease with heart failure; I25.10 Atherosclerotic heart disease of native coronary artery without angina pectoris; I49.3 Ventricular premature depolarization; I50.42 Chronic combined systolic (congestive) and diastolic (congestive) heart failure; Z79.01 Long term (current) use of anticoagulants; Z79.82 Long term (current) use of aspirin; Z79.890 Hormone replacement therapy; Z79.899 Other long term (current) drug therapy; Z95.0 Presence of cardiac pacemaker; Z95.5 Presence of coronary angioplasty implant and graft
CPT/HCPCS: 96361; 96365; 99285; 36415; 93005; 83880; 80053; 80048 ×2; 83605; 83735; 84484 ×2; 85025 ×2; 85027; 85610; 85730; 81001; 87040; 83036; 71046; G0378 ×3; J0696 ×2

== ENCOUNTER 2020-07-09 19:57 | Observation (INO) | payer MEDICARE, BC ==
[2020-07-09 20:02] LABS: Glucose,Whole Blood 239 mg/dL (75-99)
--- NOTE | 2020-07-09 20:16 | ED ---
General Adult HPI - General Chief complaint: Syncope Stated complaint: Syncope Time Seen by Provider: 07/09/20 19:58 Source: patient, EMS Mode of arrival: EMS Limitations: no limitations - History of Present Illness Initial comments: Patient presents to the ED by ambulance for evaluation. Patient states that she was sitting at the dinner table this evening when she had a syncopal episode. Patient states that she felt fine prior to having her syncopal episode today, and she states that she has felt fine since having her syncopal episode today. Patient states that she currently only feels mildly dyspneic, but she denies having any other symptoms or complaints. Patient denies trauma/fall, any pain, fever or chills, headache, focal numbness/weakness/neuro deficit, visual changes, speech difficulty, neck/back/extremity pain, chest pain, cough or cold symptoms, palpitations, abdominal pain, nausea/vomiting/diarrhea, bloody or melanotic stool, dysuria/hematuria/urinary frequency/urinary symptoms, or any other symptoms or complaints. EMS reports that the patient's blood glucose was within normal limits. - Related Data Home Medications Medication Instructions Recorded Confirmed Levothyroxine Sodium [Synthroid] 75 mcg PO DAILY 11/04/17 04/07/20 Atorvastatin [Lipitor] 20 mg PO HS 02/22/18 04/07/20 Apixaban [Eliquis] 2.5 mg PO BID 02/21/20 04/07/20 Furosemide [Lasix] 40 mg PO DAILY 02/21/20 04/07/20 Prednisolone Acetate/Pf 1 drop RIGHT EYE TID 02/21/20 04/07/20 [Prednisolone Acet 1% Eye Drop] Cholecalciferol [Vitamin D3 (25 1,000 unit PO DAILY 04/07/20 04/07/20 Mcg = 1000 Iu)] Metoprolol Succinate (ER) [Toprol 25 mg PO DAILY 04/07/20 04/07/20 XL] Previous Rx's Medication Instructions Recorded Aspirin EC [Ecotrin Low Dose] 81 mg PO DAILY #30 tablet.dr 02/22/20 lisinopriL [Zestril] 5 mg PO DAILY #30 tab 02/22/20 Cephalexin [Keflex] 500 mg PO Q8HR 3 Days #9 cap 04/09/20 Allergies Allergy/AdvReac Type Severity Reaction Status Date / Time No Known Allergies Allergy Verified 07/09/20 20:01 Review of Systems ROS Statement: Those systems with pertinent positive or pertinent negative responses have been documented in the HPI. ROS Other: All systems not noted in ROS Statement are negative. Past Medical History Past Medical History: Atrial Fibrillation, Diabetes Mellitus, Hypertension, Thyroid Disorder Additional Past Medical History / Comment(s): Congestive heart failure, pacemaker insertion, diabetes Melitus, hypertension and hypothyroid, History of Any Multi-Drug Resistant Organisms: None Reported Past Surgical History: Pacemaker Past Anesthesia/Blood Transfusion Reactions: No Reported Reaction Type of Cardiac Device: Unknown Device Placement Date:: September 2017 Past Psychological History: No Psychological Hx Reported Smoking Status: Never smoker Past Alcohol Use History: None Reported Past Drug Use History: None Reported - Past Family History Mother Family Medical History: Diabetes Mellitus, Renal Disease Father Additional Family Medical History / Comment(s): "Black lung and alcohol." Father worked in the [employer] industry. General Exam Limitations: no limitations General appearance: alert, in no apparent distress Head exam: Present: atraumatic, normocephalic Eye exam: Present: EOMI ENT exam: Present: mucous membranes moist, TM's normal bilaterally Neck exam: Present: other (Trachea is in midline). Absent: tenderness Respiratory exam: Present: normal lung sounds bilaterally. Absent: respiratory distress, wheezes, rales, rhonchi, stridor Cardiovascular Exam: Present: regular rate, normal rhythm, normal heart sounds, other (Normal radial pulses bilaterally) GI/Abdominal exam: Present: soft. Absent: distended, tenderness, guarding Extremities exam: Present: full ROM, other (Pelvis is stable and nontender). Absent: tenderness, pedal edema, calf tenderness Back exam: Present: normal inspection. Absent: tenderness Neurological exam: Present: alert, oriented X3, CN II-XII intact. Absent: motor sensory deficit Psychiatric exam: Present: normal affect, normal mood Skin exam: Present: warm, dry, intact, normal color Course Vital Signs 07/09/20 20:01 Temperature 97.8 F Pulse Rate 90 Respiratory 16 Rate Blood Pressure 147/83 O2 Sat by Pulse 96 Oximetry - Reevaluation(s) Reevaluation #1: 07/09/20 20:44 Patient remains alert and breathing comfortably with a normal room air oxygen saturation. Patient continues to deny having any symptoms while in the ED. Patient and nephew are aware of the patient's test results, and they both agree with hospital admission at this time. 07/09/20 20:50 Case, H&P and test results were discussed with Dr. Mark. He accepts hospital admission. He requests orthostatic vital sign documentation and pacemaker i nterrogation. He also agrees with placing an order for cardiology consultation. He has no further recommendations at this time. EKG Findings - EKG Comments: EKG Findings:: Ventricular-paced rhythm, ventricular rate of 91 bpm, no sig nificant change when compared to 04/07/2020 EKG Medical Decision Making - Medical Decision Making Patient's EKG shows a ventricular-paced rhythm, which appears unchanged compared to her prior EKG. Patient's labs are fairly unremarkable. Patient's chest x- ray is also unremarkable. Given the patient's medical history, age and syncopal episode today, will admit the patient to the hospital for cardiac monitoring and further evaluation. Dr. Mark has accepted hospital admission. - Lab Data Result diagrams: 07/09/20 20:11 07/09/20 20:11 Lab Results 07/09/20 07/09/20 07/09/20 Range/Units 20:00 20:11 20:11 WBC 11.9 H (3.8-10.6) k/uL RBC 4.45 (3.80-5.40) m/uL Hgb 14.0 (11.4-16.0) gm/dL Hct 41.6 (34.0-46.0) % MCV 93.5 (80.0-100.0) fL MCH 31.5 (25.0-35.0) pg MCHC 33.7 (31.0-37.0) g/dL RDW 13.1 (11.5-15.5) % Plt Count 218 (150-450) k/uL MPV 8.6 Neutrophils % 69 % Lymphocytes % 21 % Monocytes % 5 % Eosinophils % 2 % Basophils % 1 % Neutrophils # 8.2 H (1.3-7.7) k/uL Lymphocytes # 2.5 (1.0-4.8) k/uL Monocytes # 0.6 (0-1.0) k/uL Eosinophils # 0.3 (0-0.7) k/uL Basophils # 0.2 (0-0.2) k/uL Sodium 137 (137-145) mmol/L Potassium 3.9 (3.5-5.1) mmol/L Chloride 103 (98-107) mmol/L Carbon Dioxide 27 (22-30) mmol/L Anion Gap 7 mmol/L BUN 24 H (7-17) mg/dL Creatinine 1.03 (0.52-1.04) mg/dL Est GFR (CKD-EPI)AfAm 57 (>60 ml/min/1.73 sqM) Est GFR (CKD-EPI)NonAf 49 (>60 ml/min/1.73 sqM) Glucose 258 H (74-99) mg/dL POC Glucose (mg/dL) 239 H (75-99) mg/dL POC Glu Registered Respiratory Therapist ID Teresa Cabrera Calcium 8.9 (8.4-10.2) mg/dL Magnesium 1.8 (1.6-2.3) mg/dL Total Bilirubin 0.6 (0.2-1.3) mg/dL AST 22 (14-36) U/L ALT 13 (4-34) U/L Alkaline Phosphatase 105 (38-126) U/L Total Protein 6.8 (6.3-8.2) g/dL Albumin 3.4 L (3.5-5.0) g/dL - Radiology Data Radiology results: report reviewed (Chest x-ray: No active cardiopulmonary disease, no change) Disposition Clinical Impression: Syncope Disposition: ADMITTED IP TO THIS [facility] Condition: Stable Is patient prescribed a controlled substance at d/c from ED?: No Referrals: Gary Villaseñor MD [Primary Care Provider] - 1-2 days Time of Disposition: 20:53
--- NOTE | 2020-07-09 20:24 | XR ---
EXAMINATION TYPE: XR chest 1V portable DATE OF EXAM: 07/09/2020 COMPARISON: 04/07/2020 HISTORY: Syncope. Short of breath. TECHNIQUE: FINDINGS: Heart is normal. Lungs are clear of infiltrate. There is no heart failure. There is a left axillary pacemaker with the lead tip in the right ventricle. There are chest leads. There is no sign of pleural effusion. Thoracic aorta is atheromatous. IMPRESSION: No active cardiopulmonary disease. No change.
[2020-07-09 20:28] LABS: Albumin 3.4 g/dL (3.5-5.0); Basophils # (A) 0.2 k/uL (0-0.2); Basophils % (A) 1 %; Calcium 8.9 mg/dL (8.4-10.2); Eosinophils # (A) 0.3 k/uL (0-0.7); Eosinophils % (A) 2 %; HCT 41.6 % (34.0-46.0); Lymphocytes # (A) 2.5 k/uL (1.0-4.8); Lymphocytes % (A) 21 %; MCH 31.5 pg (25.0-35.0); MCHC 33.7 g/dL (31.0-37.0); MCV 93.5 fL (80.0-100.0); Magnesium 1.8 mg/dL (1.6-2.3); Mean Platelet Volume 8.6; Monocytes # (A) 0.6 k/uL (0-1.0); Monocytes % (A) 5 %; Neutrophils # (A) 8.2 k/uL (1.3-7.7); Neutrophils % (A) 69 %; Platelet Count 218 k/uL (150-450); Potassium 3.9 mmol/L (3.5-5.1); RBC 4.45 m/uL (3.80-5.40); RDW 13.1 % (11.5-15.5); Total Bilirubin 0.6 mg/dL (0.2-1.3); Total Protein 6.8 g/dL (6.3-8.2); WBC 11.9 k/uL (3.8-10.6)
[2020-07-09 20:57] LABS: Partial Thromboplastin Time 20.6 sec (22.0-30.0)
[2020-07-09 21:23] LABS: Appearance,Urine Clear (Clear); Bacteria,Urine Occasional /hpf; Bilirubin,Urine Negative (Negative); Blood,Urine Negative (Negative); Color,Urine Light Yellow; Glucose,Urine (UA) Negative (Negative); Hyaline Casts,Urine 14 /lpf (0-2); Ketones,Urine Negative (Negative); Leukocyte Esterase,Urine Trace (Negative); Mucus,Urine Rare /hpf; Nitrite,Urine Positive (Negative); PH, Urine 5.5 (5.0-8.0); Protein,Urine Negative (Negative); RBC,Urine <1 /hpf (0-5); Specific Gravity,Urine 1.007 (1.001-1.035); Squamous Epithelial Cell,Urine <1 /hpf (0-4); Urobilinogen,Urine <2.0 mg/dL (<2.0); WBC,Urine 13 /hpf (0-5)
[2020-07-09] MEDS: APIXABAN 2.5 MG TABLET PO SCH (21:49)
[2020-07-09 23:25] LABS: Glucose,Whole Blood 247 mg/dL (75-99)
[2020-07-10 05:03] LABS: Basophils # (A) 0.1 k/uL (0-0.2); Basophils % (A) 1 %; Eosinophils # (A) 0.1 k/uL (0-0.7); Eosinophils % (A) 1 %; HCT 37.7 % (34.0-46.0); HGB 12.3 gm/dL (11.4-16.0); Lymphocytes # (A) 1.9 k/uL (1.0-4.8); Lymphocytes % (A) 17 %; MCH 30.6 pg (25.0-35.0); MCHC 32.5 g/dL (31.0-37.0); MCV 94.2 fL (80.0-100.0); Mean Platelet Volume 9.1; Monocytes # (A) 0.7 k/uL (0-1.0); Monocytes % (A) 7 %; Neutrophils # (A) 7.9 k/uL (1.3-7.7); Neutrophils % (A) 73 %; Platelet Count 213 k/uL (150-450); RBC 4.01 m/uL (3.80-5.40); RDW 13.4 % (11.5-15.5); WBC 10.8 k/uL (3.8-10.6)
[2020-07-10 05:10] LABS: Albumin 2.7 g/dL (3.5-5.0); Calcium 8.6 mg/dL (8.4-10.2); Potassium 3.7 mmol/L (3.5-5.1); Total Bilirubin 0.4 mg/dL (0.2-1.3); Total Protein 5.8 g/dL (6.3-8.2)
[2020-07-10 06:12] LABS: Glucose,Whole Blood 133 mg/dL (75-99)
[2020-07-10] MEDS: LEVOTHYROXINE 75 MCG TAB PO SCH (06:28)
[2020-07-10] MEDS: ATORVASTATIN 20 MG TAB PO SCH (09:08)
[2020-07-10] MEDS: ASPIRIN 81 MG PO SCH (09:08)
[2020-07-10] MEDS: FUROSEMIDE 40 MG TAB PO SCH (09:08)
[2020-07-10] MEDS: lisinopriL 5 MG TAB PO SCH (09:08)
[2020-07-10] MEDS: METOPROLOL SUCCINATE (ER) 25 MG TAB.ER.24H PO SCH (09:08)
[2020-07-10] MEDS: CHOLECALCIFEROL 25 MCG (1000 IU) TABLET PO SCH (09:08)
[2020-07-10] MEDS: APIXABAN 2.5 MG TABLET PO SCH ×2 (09:08→20:41)
--- NOTE | 2020-07-10 10:08 | P.CRDCN ---
History of Present Illness Consult date: 07/10/20 History of present illness: CHIEF COMPLAINT: Syncope HISTORY OF PRESENT ILLNESS: This is a 85-year-old female with a past medical history significant for nonobstructive coronary artery disease, congestive heart failure, atrial fibrillation on long-term anticoagulation, pacemaker insertion, hypertension, and hyperlipidemia. Patient follows with a Dr. Beach out of [place], [place]. We have been asked to see the patient in consultation for syncope. It is noted that this is the patient's third hospitalization for syncope. She was hospitalized in February 2020 and also in March 2020. Patient examined this morning at the bedside. Patient states she was with her family on Friday celebrating a family members birthday. She states she had just finished eating her meal and her family was about to cut the birthday cake when she suddenly passed out and slumped over in the chair. She states the next thing she remembers is waking up on the floor with her family members around her shaking her. She denies any chest pain or pressure, shortness of breath, dizziness, or lightheadedness prior to passing out. No seizure activity was noted. No loss of bowel or bladder. Patient states she feels "fine" this morning and has no complaints. Patient reports having a cardiac catheterization in the past but is unsure of when she had it. She states that she did not require any stenting but was told she did have some blockages in her vessels. She also reports after she was discharged from the hospital in March 2020 she followed up with her outreach counselor and was sent for some further testing at the [facility]. DIAGNOSTICS: EKG reveals paced rhythm Chest xray no active cardiopulmonary disease Laboratory data: WBC 10.8. Hemoglobin 12.3. Platelet count 213. Sodium 140. Potassium 3.7. BUN 25. Creatinine 0.99. Troponin negative 3 Current home cardiac medications include lisinopril 5 mg daily, metoprolol 25 mg daily, Lasix 40 mg daily, Lipitor 80 mg daily, aspirin 81 mg daily, and Eliquis 2.5 mg twice a day Echocardiogram completed in February 2020 revealed ejection fraction 50-55%, moderate mitral regurgitation, moderate tricuspid regurgitation and moderate pulmonary hypertension REVIEW OF SYSTEMS: At the time of my exam: CONSTITUTIONAL: Denies fever or chills. HEENT: Denies blurred vision, vision changes, or eye pain. Denies hemoptysis CARDIOVASCULAR: Denies chest pain, orthopnea, PND or palpitations RESPIRATORY: No shortness of breath. GASTROINTESTINAL: Denies abdominal pain. Denies nausea or vomiting. HEMATOLOGIC: Denies bleeding disorders. GENITOURINARY: Denies any blood in urine. SKIN: Denies pruitis. Denies rash. PHYSICAL EXAM: VITAL SIGNS: Reviewed. GENERAL: Well-developed in no acute distress. HEENT: Head is normocephalic. Pupils are equal, round. Sclerae anicteric. Mucous membranes of the mouth are moist. Neck supple. No JVD or thyromegaly LUNGS: Respirations even and unlabored. Lungs essentially clear to auscultation bilaterally. HEART: Telemetry reveals paced rhythm. Regular rate and rhythm. S1 and S2 heard. Systolic murmur noted. ABDOMEN: Soft. Nondistended. Nontender. EXTREMITIES: Normal range of motion. No clubbing or cyanosis. Peripheral pulses intact. No lower extremity edema NEUROLOGIC: Awake and alert. Oriented x 3. ASSESSMENT: Recurrent syncope Chronic persistent atrial fibrillation, on long-term anticoagulation with Eliquis History of nonobstructive coronary artery disease, per patient History of biventricular pacemaker insertion Chronic diastolic congestive heart failure, currently euvolemic Hypertension Hyperlipidemia Diabetes mellitus, type II PLAN: Orthostatic blood pressures obtained and were unremarkable Pacemaker interrogated. Report reviewed without significant findings. No need to repeat echocardiogram as this was performed in February 2020 Continue telemetry monitoring Obtain records from patient's outreach counselor and also imaging performed at the [facility] Further recommendations pending patient's course Nurse practitioner note has been reviewed by physician. Signing provider agrees with the documented findings, assessment, and plan of care. Past Medical History Past Medical History: Atrial Fibrillation, Diabetes Mellitus, Hypertension, Thyroid Disorder Additional Past Medical History / Comment(s): Congestive heart failure, pacemaker insertion, diabetes Melitus, hypertension and hypothyroid, History of Any Multi-Drug Resistant Organisms: None Reported Past Surgical History: Pacemaker Past Anesthesia/Blood Transfusion Reactions: No Reported Reaction Type of Cardiac Device: Unknown Device Placement Date:: September 2017 Past Psychological History: No Psychological Hx Reported Smoking Status: Never smoker Past Alcohol Use History: None Reported Past Drug Use History: None Reported - Past Family History Mother Family Medical History: Diabetes Mellitus, Renal Disease Father Additional Family Medical History / Comment(s): "Black lung and alcohol." Father worked in the [employer] industry. Medications and Allergies Home Medications Medication Instructions Recorded Confirmed Type Levothyroxine Sodium [Synthroid] 75 mcg PO DAILY 11/04/17 07/09/20 History Atorvastatin [Lipitor] 20 mg PO DAILY 02/22/18 07/09/20 History Apixaban [Eliquis] 2.5 mg PO BID 02/21/20 07/09/20 History Furosemide [Lasix] 40 mg PO DAILY 02/21/20 07/09/20 History Aspirin EC [Ecotrin Low Dose] 81 mg PO DAILY #30 tablet. 02/22/20 07/09/20 Rx lisinopriL [Zestril] 5 mg PO DAILY #30 tab 02/22/20 07/09/20 Rx Cholecalciferol [Vitamin D3 (25 3,000 unit PO DAILY 04/07/20 07/09/20 History Mcg = 1000 Iu)] Metoprolol Succinate (ER) [Toprol 25 mg PO DAILY 04/07/20 07/09/20 History XL] Allergies Allergy/AdvReac Type Severity Reaction Status Date / Time No Known Allergies Allergy Verified 07/09/20 20:54 Physical Exam Vitals: Vital Signs Temp Pulse Pulse Resp BP BP BP 07/10/20 02:00 97.6 F 90 16 07/09/20 22:00 97.6 F 92 16 07/09/20 21:10 141/82 135/65 07/09/20 20:57 90 18 138/84 07/09/20 20:01 97.8 F 90 16 147/83 BP Pulse Ox 07/10/20 02:00 112/62 95 07/09/20 22:00 149/84 93 L 07/09/20 21:10 148/77 07/09/20 20:57 100 07/09/20 20:01 96 Intake and Output 07/09/20 07/10/20 07/10/20 22:59 06:59 14:59 Other: Voiding Method Toilet Diaper Weight 90.718 kg Results 07/10/20 04:13 07/10/20 04:13 Cardiac Enzymes 07/09/20 07/09/20 07/09/20 Range/Units 20:11 20:11 22:50 AST 22 (14-36) U/L Troponin I <0.012 <0.012 (0.000-0.034) ng/mL 07/10/20 07/10/20 Range/Units 01:24 04:13 AST 19 (14-36) U/L Troponin I <0.012 (0.000-0.034) ng/mL Coagulation 07/09/20 Range/Units 20:11 PT 11.0 (9.0-12.0) sec APTT 20.6 L (22.0-30.0) sec CBC 07/09/20 07/10/20 Range/Units 20:11 04:13 WBC 11.9 H 10.8 H (3.8-10.6) k/uL RBC 4.45 4.01 (3.80-5.40) m/uL Hgb 14.0 12.3 (11.4-16.0) gm/dL Hct 41.6 37.7 (34.0-46.0) % Plt Count 218 213 (150-450) k/uL Comprehensive Metabolic Panel 07/09/20 07/10/20 Range/Units 20:11 04:13 Sodium 137 140 (137-145) mmol/L Potassium 3.9 3.7 (3.5-5.1) mmol/L Chloride 103 107 (98-107) mmol/L Carbon Dioxide 27 28 (22-30) mmol/L BUN 24 H 25 H (7-17) mg/dL Creatinine 1.03 0.99 (0.52-1.04) mg/dL Glucose 258 H 170 H (74-99) mg/dL Calcium 8.9 8.6 (8.4-10.2) mg/dL AST 22 19 (14-36) U/L ALT 13 10 (4-34) U/L Alkaline Phosphatase 105 82 (38-126) U/L Total Protein 6.8 5.8 L (6.3-8.2) g/dL Albumin 3.4 L 2.7 L (3.5-5.0) g/dL Current Medications Generic Name Dose Route Start Last Admin Trade Name Freq PRN Reason Stop Dose Admin Apixaban 2.5 mg 07/09/20 21:00 07/10/20 09:08 Apixaban 2.5 Mg Tablet PO 2.5 mg BID BRANDYN Administration Aspirin 81 mg 07/10/20 09:00 07/10/20 09:08 Aspirin 81 Mg PO 81 mg DAILY BRANDYN Administration Atorvastatin Calcium 20 mg 07/10/20 09:00 07/10/20 09:08 Atorvastatin 20 Mg Tab PO 20 mg DAILY BRANDYN Administration Cholecalciferol 75 mcg 07/10/20 09:00 07/10/20 09:08 Cholecalciferol 25 Mcg (1000 Iu) Tablet PO 75 mcg DAILY BRANDYN Administration Furosemide 40 mg 07/10/20 09:00 07/10/20 09:08 Furosemide 40 Mg Tab PO 40 mg DAILY BRANDYN Administration Levothyroxine Sodium 75 mcg 07/10/20 06:30 07/10/20 06:28 Levothyroxine 75 Mcg Tab PO 75 mcg DAILY@0630 BRANDYN Administration Lisinopril 5 mg 07/10/20 09:00 07/10/20 09:08 Lisinopril 5 Mg Tab PO 5 mg DAILY BRANDYN Administration Metoprolol Succinate 25 mg 07/10/20 09:00 07/10/20 09:08 Metoprolol Succinate (Er) 25 Mg Tab.Er.24h PO 25 mg DAILY BRANDYN Administration Intake and Output 07/09/20 07/10/20 07/10/20 22:59 06:59 14:59 Other: Voiding Method Toilet Diaper Weight 90.718 kg 07/10/20 04:13 07/10/20 04:13
[2020-07-10 11:52] LABS: Glucose,Whole Blood 195 mg/dL (75-99)
--- NOTE | 2020-07-10 13:46 | ECHOF ---
Referral Reason:LV function MEASUREMENTS -------- HEIGHT: 165.1 cm WEIGHT: 90.7 kg BP: 134/89 RVIDd: 2.9 cm (< 3.3) IVSd: 1.3 cm (0.6 - 1.1) LVIDd: 3.7 cm (3.9 - 5.3) LVPWd: 1.2 cm (0.6 - 1.1) IVSs: 1.5 cm LVIDs: 2.5 cm LVPWs: 1.7 cm LA Diam: 3.8 cm (2.7 - 3.8) Ao Diam: 2.9 cm (2.0 - 3.7) AV Cusp: 1.0 cm (1.5 - 2.6) MV EXCURSION: 23.207 mm (> 18.000) MV EF SLOPE: 109 mm/s (70 - 150) EPSS: 0.1 cm AV maxP.72 mmHg AV meanP.10 mmHg RAP: 5.00 mmHg RVSP: 25.55 mmHg FINDINGS -------- Pacerwire seen in RV and RA. Limited Study The left ventricular size is normal. There is mild concentric left ventricular hypertrophy. Overa ll left ventricular systolic function is low-normal with, an EF between 50 - 55 %. Apical anterior LV wall motion is hypokinetic. There is moderate aortic valve sclerosis. There is mild aortic stenosis present. Peak/mean gradie nt across the Aortic Valve is 22.72mmHg / 13.10mmHg. Moderate mitral annular calcification present. Mild mitral regurgitation is present. The tricuspid valve appears structurally normal. Mild tricuspid regurgitation present. The pulmonic valve was not well visualized. There is no pericardial effusion. CONCLUSIONS -------- 1. Pacerwire seen in RV and RA. 2. Limited Study 3. There is mild concentric left ventricular hypertrophy. 4. Overall left ventricular systolic function is low-normal with, an EF between 50 - 55 %. 5. Apical anterior LV wall motion is hypokinetic. 6. There is moderate aortic valve sclerosis. 7. There is mild aortic stenosis present. 8. Peak/mean gradient across the Aortic Valve is 22.72mmHg / 13.10mmHg. 9. Mild mitral regurgitation is present. 10. Mild tricuspid regurgitation present. 11. There is no pericardial effusion. OPTICAL LAB TECHNICIAN: JOEY Katz
[2020-07-10 16:43] LABS: Glucose,Whole Blood 150 mg/dL (75-99)
[2020-07-10 20:44] LABS: Glucose,Whole Blood 162 mg/dL (75-99)
--- NOTE | 2020-07-11 00:12 | P.HPIM ---
History of Present Illness H&P Date: 07/10/20 Chief Complaint: Past out History of presenting complaint: This is a pleasant 85-year-old patient of Dr. Gary Villaseñor. Chronic stable medical conditions include atrial fibrillation, diabetes, hypertension, hypothyroid, CHF, a smoker,. Normally uses a walker. Was sitting at the dinner table and she does not remember what happened she simply passed out. Does not remember any chest pain and palpitation of premonitor symptoms. Does no tongue biting or incontinence. No seizure activity was witnessed. When she remembers was that EMT was taking her. Does not have any residual neurological focal symptoms. Review of systems: GEN.: None EYES: None HEENT: None NECK: None RESPIRATORY: None CARDIOVASCULAR: None GASTROINTESTINAL: None GENITOURINARY: None MUSCULOSKELETAL: Joint pains LYMPHATICS: None HEMATOLOGICAL: None PSYCHIATRY: None NEUROLOGICAL: As above Past medical history to include: Atrial fibrillation, diabetes, hypertension, hypothyroid, congestive heart failure, pacemaker Social history: No history of smoking or alcohol. This was assessed to the nephew. Does use a walker. Physical examination: VITAL SIGNS: 97.8, 90, 16, 1 47 x 83, 96% room air GENERAL: BMI 33.3, reclining in bed, comfortable. EYES: Pupils equal. Conjunctiva normal. HEENT: External appearance of nose and ears normal, oral cavity grossly normal. NECK: JVD not raised; masses not palpable. HEART: First and second heart sounds are normal; no edema. LUNGS: Respiratory rate normal; clear to auscultation. ABDOMEN: Soft, nontender, liver spleen not palpable, no masses palpable. PSYCH: Alert and oriented x3; mood and affect normal. MUSCULOSKELETAL: Evidence of OA NEUROLOGICAL: Cranial nerves grossly intact; no facial asymmetry, power and sensation grossly intact. LYMPHATICS: No lymph nodes palpable in the axilla and neck INVESTIGATIONS, reviewed in the clinical context: White count 10.8 hemoglobin 12.3 at bedtime 213 potassium 3.7 creatinine 0.99 EKG tracing personally reviewed by me shows paced rhythm. Chest x-ray film personally reviewed by me-no obvious abnormality. Pacemaker Assessment: -Episode of sitting on the dining table passing out. Duration unknown. No seizure activity noted. No focal signs. No cardiac symptoms. Possible underlying arrhythmia. -Persistent atrial fibrillation -Diabetes mellitus type 2 -Essential hypertension -Hypothyroid - Plan: Home medications resumed. Put on telemetry. Cardiology was consulted. She did have a pacemaker interrogation. Care was discussed with the patient. Questions answered. Past Medical History Past Medical History: Atrial Fibrillation, Diabetes Mellitus, Hypertension, Thyroid Disorder Additional Past Medical History / Comment(s): Congestive heart failure, pacemaker insertion, diabetes Melitus, hypertension and hypothyroid, History of Any Multi-Drug Resistant Organisms: None Reported Past Surgical History: Pacemaker Past Anesthesia/Blood Transfusion Reactions: No Reported Reaction Type of Cardiac Device: Unknown Device Placement Date:: September 2017 Past Psychological History: No Psychological Hx Reported Smoking Status: Never smoker Past Alcohol Use History: None Reported Past Drug Use History: None Reported - Past Family History Mother Family Medical History: Diabetes Mellitus, Renal Disease Father Additional Family Medical History / Comment(s): "Black lung and alcohol." Father worked in the [employer]. Medications and Allergies Home Medications Medication Instructions Recorded Confirmed Type Levothyroxine Sodium [Synthroid] 75 mcg PO DAILY 11/04/17 07/09/20 History Atorvastatin [Lipitor] 20 mg PO DAILY 02/22/18 07/09/20 History Apixaban [Eliquis] 2.5 mg PO BID 02/21/20 07/09/20 History Furosemide [Lasix] 40 mg PO DAILY 02/21/20 07/09/20 History Aspirin EC [Ecotrin Low Dose] 81 mg PO DAILY #30 tablet.dr 02/22/20 07/09/20 Rx lisinopriL [Zestril] 5 mg PO DAILY #30 tab 02/22/20 07/09/20 Rx Cholecalciferol [Vitamin D3 (25 3,000 unit PO DAILY 04/07/20 07/09/20 History Mcg = 1000 Iu)] Metoprolol Succinate (ER) [Toprol 25 mg PO DAILY 04/07/20 07/09/20 History XL] Allergies Allergy/AdvReac Type Severity Reaction Status Date / Time No Known Allergies Allergy Verified 07/09/20 20:54 Physical Exam Vitals: Vital Signs Temp Pulse Pulse Resp BP BP BP 07/10/20 09:07 98.1 F 90 16 07/10/20 08:00 90 16 07/10/20 02:00 97.6 F 90 16 07/09/20 22:00 97.6 F 92 16 07/09/20 21:10 141/82 135/65 01/24/21 20:57 90 18 138/84 07/09/20 20:01 97.8 F 90 16 147/83 BP BP Pulse Ox 07/10/20 09:07 134/89 91 L 07/10/20 08:00 07/10/20 02:00 112/62 95 07/09/20 22:00 149/84 93 L 07/09/20 21:10 148/77 07/09/20 20:57 100 07/09/20 20:01 96 Intake and Output 07/09/20 07/10/20 07/10/20 22:59 06:59 14:59 Other: Voiding Method Toilet Toilet Diaper Diaper Weight 90.718 kg Results CBC & Chem 7: 07/10/20 04:13 07/10/20 04:13 Labs: Abnormal Lab Results - Last 24 Hours (Table) 07/09/20 07/09/20 07/09/20 Range/Units 20:00 20:11 20:11 WBC 11.9 H (3.8-10.6) k/uL Neutrophils # 8.2 H (1.3-7.7) k/uL APTT 20.6 L (22.0-30.0) sec BUN (7-17) mg/dL Glucose (74-99) mg/dL POC Glucose (mg/dL) 239 H (75-99) mg/dL Total Protein (6.3-8.2) g/dL Albumin (3.5-5.0) g/dL Urine Nitrite (Negative) Ur Leukocyte Esterase (Negative) Urine WBC (0-5) /hpf Urine Bacteria (None) /hpf Hyaline Casts (0-2) /lpf Urine Mucus (None) /hpf 07/09/20 07/09/20 07/09/20 Range/Units 20:11 21:05 23:23 WBC (3.8-10.6) k/uL Neutrophils # (1.3-7.7) k/uL APTT (22.0-30.0) sec BUN 24 H (7-17) mg/dL Glucose 258 H (74-99) mg/dL POC Glucose (mg/dL) 247 H (75-99) mg/dL Total Protein (6.3-8.2) g/dL Albumin 3.4 L (3.5-5.0) g/dL Urine Nitrite Positive H (Negative) Ur Leukocyte Esterase Trace H (Negative) Urine WBC 13 H (0-5) /hpf Urine Bacteria Occasional H (None) /hpf Hyaline Casts 14 H (0-2) /lpf Urine Mucus Rare H (None) /hpf 07/10/20 07/10/20 07/10/20 Range/Units 04:13 04:13 06:10 WBC 10.8 H (3.8-10.6) k/uL Neutrophils # 7.9 H (1.3-7.7) k/uL APTT (22.0-30.0) sec BUN 25 H (7-17) mg/dL Glucose 170 H (74-99) mg/dL POC Glucose (mg/dL) 133 H (75-99) mg/dL Total Protein 5.8 L (6.3-8.2) g/dL Albumin 2.7 L (3.5-5.0) g/dL Urine Nitrite (Negative) Ur Leukocyte Esterase (Negative) Urine WBC (0-5) /hpf Urine Bacteria (None) /hpf Hyaline Casts (0-2) /lpf Urine Mucus (None) /hpf Microbiology - Last 24 Hours (Table) 07/09/20 21:05 Urine Culture - Preliminary Urine,Voided Thrombosis Risk Factor Assmnt - Choose All That Apply Each Factor Represents 1 point: Obesity (BMI >25), Swollen legs (current) Each Risk Factor Represents 3 Points: Age 75 years or older Thrombosis Risk Factor Assessment Total Risk Factor Score: 5 Thrombosis Risk Factor Assessment Level: High Risk
[2020-07-11 02:55] VITALS: PULSE 91
[2020-07-11] MEDS: LEVOTHYROXINE 75 MCG TAB PO SCH (05:54)
[2020-07-11 07:18] LABS: Glucose,Whole Blood 107 mg/dL (75-99)
[2020-07-11 07:56] VITALS: BP 97/67; RESP 16; TEMP 97.6
[2020-07-11] MEDS: APIXABAN 2.5 MG TABLET PO SCH (09:06)
[2020-07-11] MEDS: FUROSEMIDE 40 MG TAB PO SCH (09:06)
[2020-07-11] MEDS: ASPIRIN 81 MG PO SCH (09:06)
[2020-07-11] MEDS: CHOLECALCIFEROL 25 MCG (1000 IU) TABLET PO SCH (09:06)
[2020-07-11] MEDS: ATORVASTATIN 20 MG TAB PO SCH (09:06)
[2020-07-11] MEDS: METOPROLOL SUCCINATE (ER) 25 MG TAB.ER.24H PO SCH (09:06)
[2020-07-11] MEDS: lisinopriL 5 MG TAB PO SCH (09:06)
[2020-07-11 11:51] LABS: Glucose,Whole Blood 116 mg/dL (75-99)
--- NOTE | 2020-07-11 11:51 | P.PN ---
Subjective CHIEF COMPLAINT: Syncope HISTORY OF PRESENT ILLNESS: 07/10/2020 This is a 85-year-old female with a past medical history significant for nonobstructive coronary artery disease, congestive heart failure, atrial fibrillation on long-term anticoagulation, pacemaker insertion, hypertension, and hyperlipidemia. Patient follows with a Dr. Beach out of [place], [place]. We have been asked to see the patient in consultation for syncope. It is noted that this is the patient's third hospitalization for syncope. She was hospitalized in February 2020 and also in March 2020. Patient examined this morning at the bedside. Patient states she was with her family on Friday celebrating a family members birthday. She states she had just finished eating her meal and her family was about to cut the birthday cake when she suddenly passed out and slumped over in the chair. She states the next thing she rememb ers is waking up on the floor with her family members around her shaking her. She denies any chest pain or pressure, shortness of breath, dizziness, or lightheadedness prior to passing out. No seizure activity was noted. No loss of bowel or bladder. Patient states she feels "fine" this morning and has no complaints. Patient reports having a cardiac catheterization in the past but is unsure of when she had it. She states that she did not require any stenting but was told she did have some blockages in her vessels. She also reports after she was discharged from the hospital in March 2020 she followed up with her concrete inspector and was sent for some further testing at the [facility]. Echocardiogram completed in February 2020 revealed ejection fraction 50-55%, moderate mitral regurgitation, moderate tricuspid regurgitation and moderate pulmonary hypertension Records reviewed from patient's concrete inspector, Dr. Jaime. Patient underwent cardiac catheterization in February 2020 at [facility] in [place]. Cardiac cath revealed: Left main: Normal LAD: 95% ostial occlusion. 100% mid LAD occlusion. Severely calcified LAD First diagonal: Moderate disease Secondary diagonal: Moderate disease Left circumflex: Normal-sized. 70% proximal in-stent restenosis Second obtuse marginal: Patent. Large. Right coronary: Normal-sized. Mild diffuse disease. Distal collateral flow to left system. Recommendations from Dr. Jaime at that time included admitting the patient to the hospital for nuclear viability study to further assess ostial LAD disease. 07/11/2020 Attempted to get records from [facility]. However, facility states they have no further records and states patient did not have any stress test performed at their facility. Patient examined this morning at the bedside. She denies chest pain or pressure. Denies shortness of breath. Denies dizziness or lightheadedness. No further episodes of syncope. PHYSICAL EXAM: VITAL SIGNS: Reviewed. GENERAL: Well-developed in no acute distress. HEENT: Head is normocephalic. Pupils are equal, round. Sclerae anicteric. Mucous membranes of the mouth are moist. Neck supple. No JVD or thyromegaly LUNGS: Respirations even and unlabored. Lungs essentially clear to auscultation bilaterally. HEART: Telemetry reveals paced rhythm. Regular rate and rhythm. S1 and S2 heard. Systolic murmur noted. ABDOMEN: Soft. Nondistended. Nontender. EXTREMITIES: Normal range of motion. No clubbing or cyanosis. Peripheral pulses intact. No lower extremity edema NEUROLOGIC: Awake and alert. Oriented x 3. ASSESSMENT: Recurrent syncope Chronic persistent atrial fibrillation, on long-term anticoagulation with Eliqu is Coronary artery disease with previous PCI to left circumflex History of biventricular pacemaker insertion Chronic diastolic congestive heart failure, currently euvolemic Hypertension Hyperlipidemia Diabetes mellitus, type II PLAN: Patient may be discharged home today from a cardiac perspective. She is to follow up outpatient with her concrete inspector, Dr. Jaime Nurse practitioner note has been reviewed by physician. Signing provider agrees with the documented findings, assessment, and plan of care. Objective - Vital Signs Vital signs: Vital Signs Temp 97.6 F 07/11/20 07:54 Pulse 91 07/11/20 07:54 Resp 16 07/11/20 07:54 BP 97/67 07/11/20 07:54 Pulse Ox 93 L 07/11/20 07:54 Intake & Output 07/10/20 07/11/20 07/11/20 18:59 06:59 18:59 Intake Total 600 240 230 Balance 600 240 230 Intake: Oral 600 240 230 Other: Voiding Method Toilet Toilet Toilet Diaper Diaper Diaper # Voids 2 1 - Labs CBC & Chem 7: 07/10/20 04:13 07/10/20 04:13 Labs: Abnormal Lab Results - Last 24 Hours (Table) 07/10/20 07/10/2021 Range/Units 11:51 16:42 20:41 POC Glucose (mg/dL) 195 H 150 H 162 H (75-99) mg/dL 07/11/20 Range/Units 07:13 POC Glucose (mg/dL) 107 H (75-99) mg/dL Microbiology - Last 24 Hours (Table) 07/09/20 21:05 Urine Culture - Preliminary Urine,Voided Gram Neg Bacilli
--- NOTE | 2020-07-12 00:02 | P.DS ---
Providers Date of admission: 07/09/20 20:45 Expected date of discharge: 07/11/20 Attending physician: Timmy Mark Consults: 07/09/20 20:53 Consult Physician Urgent Consulting Provider: Bradly Rivera Consult Reason/Comments: syncope Do you want consulting provider notified?: Yes Primary care physician: Gary Villaseñor [facility] Course: Chief Complaint: Past out History of presenting complaint: This is a pleasant 85-year-old patient of Dr. aGry Villaseñor. Chronic stable medical conditions include atrial fibrillation, diabetes, hypertension, hypothyroid, CHF, a smoker,. Normally uses a walker. Was sitting at the dinner table and she does not remember what happened she simply passed out. Does not remember any chest pain and palpitation of premonitor symptoms. Does no tongue biting or incontinence. No seizure activity was witnessed. When she remembers was that EMT was taking her. Does not have any residual neurological focal symptoms. Patient is seen by cardiology. Cleared for discharge. No obvious abnormality on the telemetry. Discussed with the patient. Patient is to follow-up with her central office technician. Consultation: Dr. Maxwell from cardiology Past medical history to include: Atrial fibrillation, diabetes, hypertension, hypothyroid, congestive heart failure, pacemaker Social history: No history of smoking or alcohol. This was assessed to the nephew. Does use a walker. Physical examination: VITAL SIGNS: 97.6, 91, 16, 97/67, 93% room air GENERAL: BMI 33.3, sitting up, comfortable. EYES: Pupils equal. Conjunctiva normal. HEENT: External appearance of nose and ears normal, oral cavity grossly normal. NECK: JVD not raised; masses not palpable. HEART: First and second heart sounds are normal; no edema. LUNGS: Respiratory rate normal; clear to auscultation. ABDOMEN: Soft, nontender, liver spleen not palpable, no masses palpable. PSYCH: Alert and oriented x3; mood and affect normal. MUSCULOSKELETAL: Evidence of OA INVESTIGATIONS, reviewed in the clinical context: White count 10.8 hemoglobin 12.3 at bedtime 213 potassium 3.7 creatinine 0.99 EKG tracing personally reviewed by me shows paced rhythm. Chest x-ray film personally reviewed by me-no obvious abnormality. Pacemaker 2-D echocardiogram-here 50-55%. Apical anterior LV wall motion hypokinetic. Moderate aortic valve sclerosis. Assessment: -Syncope -Persistent atrial fibrillation -Diabetes mellitus type 2 -Essential hypertension -Hypothyroid -Moderate aortic valve sclerosis - Disposition: Home Patient Condition at Discharge: Stable Plan - Discharge Summary New Discharge Prescriptions: Continue Levothyroxine Sodium [Synthroid] 75 mcg PO DAILY Atorvastatin [Lipitor] 20 mg PO DAILY Apixaban [Eliquis] 2.5 mg PO BID Aspirin EC [Ecotrin Low Dose] 81 mg PO DAILY #30 tablet. lisinopriL [Zestril] 5 mg PO DAILY #30 tab Cholecalciferol [Vitamin D3 (25 Mcg = 1000 Iu)] 3,000 unit PO DAILY Metoprolol Succinate (ER) [Toprol XL] 25 mg PO DAILY Changed Furosemide [Lasix] 20 mg PO DAILY #0 Discharge Medication List Levothyroxine Sodium [Synthroid] 75 mcg PO DAILY 11/04/17 [History] Atorvastatin [Lipitor] 20 mg PO DAILY 02/22/18 [History] Apixaban [Eliquis] 2.5 mg PO BID 02/21/20 [History] Aspirin EC [Ecotrin Low Dose] 81 mg PO DAILY #30 tablet. 02/22/20 [Rx] lisinopriL [Zestril] 5 mg PO DAILY #30 tab 02/22/20 [Rx] Cholecalciferol [Vitamin D3 (25 Mcg = 1000 Iu)] 3,000 unit PO DAILY 04/07/20 [History] Metoprolol Succinate (ER) [Toprol XL] 25 mg PO DAILY 04/07/20 [History] Furosemide [Lasix] 20 mg PO DAILY #0 07/11/20 [Rx] Follow up Appointment(s)/Referral(s): Gary Villaseñor MD [Primary Care Provider] - 1-2 days Patient Instructions/Handouts: Syncope (GEN) Discharge Disposition: HOME SELF-CARE
[2020-07-12] MEDS ORDERED: FUROSEMIDE 20 MG TAB PO SCH (09:00)
== END 2020-07-11 14:30 | disposition home or self-care (01) ==
LOC: EC 19:57 → 6NMEDSUR 20:45
PROVIDERS: ADMIT Hospitalist; ATTEND Hospitalist
DX: R55 Syncope and collapse (principal); I48.19 Other persistent atrial fibrillation; E11.9 Type 2 diabetes mellitus without complications; I11.0 Hypertensive heart disease with heart failure; E03.9 Hypothyroidism, unspecified; I35.8 Other nonrheumatic aortic valve disorders; I50.32 Chronic diastolic (congestive) heart failure; F17.200 Nicotine dependence, unspecified, uncomplicated; E66.9 Obesity, unspecified; I25.10 Atherosclerotic heart disease of native coronary artery without angina pectoris; E78.5 Hyperlipidemia, unspecified; Z95.0 Presence of cardiac pacemaker; Z79.890 Hormone replacement therapy; Z79.899 Other long term (current) drug therapy; Z79.01 Long term (current) use of anticoagulants; Z79.52 Long term (current) use of systemic steroids; Z79.82 Long term (current) use of aspirin; Z68.33 Body mass index [BMI] 33.0-33.9, adult; Z98.890 Other specified postprocedural states; Z83.3 Family history of diabetes mellitus; Z84.1 Family history of disorders of kidney and ureter; Z82.5 Family history of asthma and other chronic lower respiratory diseases; Z81.1 Family history of alcohol abuse and dependence
CPT/HCPCS: 93005 ×2; 99285; 36415; 93308; 80053 ×2; 83735; 84484 ×2; 85025 ×2; 85610; 85730; 81001; 87086; 87077; 87186; 71045; G0378 ×3

== ENCOUNTER → 2020-07-21 | Outpatient (CLI) | payer MEDICARE, BC ==
--- NOTE | 2020-07-21 12:52 | CT ---
EXAMINATION TYPE: CT abdomen pelvis wo con DATE OF EXAM: 07/21/2020 HISTORY: Vascular insufficiency of intestines causing repeated syncope. CT DLP: 968 mGycm. Automated Exposure Control for Dose Reduction was Utilized. TECHNIQUE: CT scan of the abdomen and pelvis is performed without oral or IV contrast. COMPARISON: NONE FINDINGS: Within the limitations of a non-contrast study, the following observations are made. LUNG BASES: Mild to moderate pulmonary parenchymal fibrotic changes bilaterally. Partial visualizatio n of pacemaker leads. LIVER/GB: Few small calcifications near the quirino hepatis are presumed benign. PANCREAS: Moderate generalized fat replaced atrophy of the inferior head and uncinate process. SPLEEN: No significant abnormality is seen. ADRENALS: Slight low density thickening to both adrenal glands left greater than right consistent wit h benign lipid rich hyperplasia. KIDNEYS: No renal stones bilaterally. Nondependent air in bladder noted axial image 130. BOWEL: Suboptimal evaluation without enteric contrast. Stomach poorly distended and thus suboptimally evaluated. No suspicious small or large bowel dilatation. Normal-appearing appendix seen from cecum in the right lower quadrant. Some diverticula in the sigmoid colon. No CT evidence for acute divertic ulitis. GENITAL ORGANS: Anteverted prominent calcified uterus. Underlying calcified fibroids suspected. LYMPH NODES: No greater than 1cm abdominal or pelvic lymph nodes are appreciated. OSSEOUS STRUCTURES: Dextroconvex scoliosis centered at L3 level. Fairly moderate multilevel spurring in the spine. Moderate axial joint space loss in both hips with mild to moderate acetabular spurring bilaterally. Moderate disc space narrowing L2-L3 level. OTHER: Moderate to severe calcified plaque of the aorta extends into branch vessels. IMPRESSION: 1. Nondependent air in bladder. Correlate for recent catheterization otherwise other etiologies such as fistula need to be considered. 2. Prominent densely calcified enlarged fibroid uterus. 3. Mild sigmoid colonic diverticulosis. No convincing CT evidence for acute diverticulitis.
== END | disposition home or self-care (01) ==
LOC: RADCTMAIN 11:09
PROVIDERS: ATTEND Family Medicine
DX: D25.9 Leiomyoma of uterus, unspecified (principal); K57.30 Diverticulosis of large intestine without perforation or abscess without bleeding
CPT/HCPCS: 74176

== ENCOUNTER 2020-09-17 20:39 | Observation (INO) | payer MEDICARE, BC ==
--- NOTE | 2020-09-17 21:36 | ED ---
Syncope HPI - General Chief Complaint: Syncope Stated Complaint: Syncope Time Seen by Provider: 09/17/20 20:51 Source: patient, EMS Mode of arrival: EMS Limitations: no limitations - History of Present Illness Initial Comments: This patient is an 85-year-old woman brought to be evaluated for syncopal episode. Patient is accompanied by her nephew who gives much history as well. Patient had been seated at a table after having Easter holiday meal. Family noticed that she looked funny, and she then passed out. Family noted that her respiratory rate also seemed to be slow and that she appeared to be somewhat grayish in color. They phoned EMS and they lowered her to the ground. EMS dispatcher recommended that they perform chest compressions and when they did that she woke up after approximately 10 of those. When I review the patient, she has no complaints. The patient did not experience any chest pain, palpitations, dyspnea. She does. Be back at baseline per family. The patient has had previous similar episodes. this is now the fourth episode since last spring, and they do seem to be centered around holiday meal events. MD Complaint: loss of consciousness Onset/Timin -: minutes(s) Prodromal Symptoms: none Duration of Episode: 1 -: minutes(s) Witnessed: yes - by bystander Injuries Sustained Associated with Event: None Current Symptoms: back to baseline History: previous syncopal episode Context: other (After eating) Treatments Prior to Arrival: none - Related Data Home Medications Medication Instructions Recorded Confirmed Levothyroxine Sodium [Synthroid] 75 mcg PO DAILY 11/04/17 09/17/20 Atorvastatin [Lipitor] 20 mg PO DAILY 02/22/18 09/17/20 Apixaban [Eliquis] 2.5 mg PO BID 02/21/20 09/17/20 Metoprolol Succinate (ER) [Toprol 25 mg PO DAILY 04/07/20 09/17/20 XL] Cholecalciferol (Vitamin D3) 75 mcg PO DAILY 09/17/20 09/17/20 [Vitamin D3 (3000 Iu)] Previous Rx's Medication Instructions Recorded Aspirin EC [Ecotrin Low Dose] 81 mg PO DAILY #30 tablet. 02/22/20 lisinopriL [Zestril] 5 mg PO DAILY #30 tab 02/22/20 Furosemide [Lasix] 20 mg PO DAILY #0 07/11/20 Allergies Allergy/AdvReac Type Severity Reaction Status Date / Time No Known Allergies Allergy Verified 09/17/20 22:01 Review of Systems ROS Statement: Those systems with pertinent positive or pertinent negative responses have been documented in the HPI. ROS Other: All systems not noted in ROS Statement are negative. Constitutional: Denies: fever, chills Eyes: Denies: vision change Respiratory: Denies: cough, dyspnea Cardiovascular: Reports: syncope. Denies: chest pain, palpitations, orthopnea, edema Gastrointestinal: Denies: abdominal pain, vomiting, diarrhea, melena, hematochezia Genitourinary: Denies: dysuria, hematuria Musculoskeletal: Denies: back pain Skin: Denies: rash Neurological: Denies: headache, weakness, numbness, confusion Past Medical History Past Medical History: Atrial Fibrillation, Diabetes Mellitus, Hypertension, Thyroid Disorder Additional Past Medical History / Comment(s): Congestive heart failure, pacemaker insertion, diabetes Melitus, hypertension and hypothyroid, History of Any Multi-Drug Resistant Organisms: None Reported Past Surgical History: Pacemaker Past Anesthesia/Blood Transfusion Reactions: No Reported Reaction Type of Cardiac Device: Unknown Device Placement Date:: September 2017 Past Psychological History: No Psychological Hx Reported Smoking Status: Never smoker Past Alcohol Use History: None Reported Past Drug Use History: None Reported - Past Family History Mother Family Medical History: Diabetes Mellitus, Renal Disease Father Additional Family Medical History / Comment(s): "Black lung and alcohol." Father worked in the [employer] industry. General Exam Limitations: no limitations General appearance: alert, in no apparent distress Head exam: Present: atraumatic, normocephalic Eye exam: Present: PERRL, EOMI, other (Right cornea is clouded) ENT exam: Present: normal oropharynx Neck exam: Present: normal inspection, full ROM Respiratory exam: Present: normal lung sounds bilaterally. Absent: respiratory distress, wheezes, rales, rhonchi, stridor Cardiovascular Exam: Present: regular rate, normal rhythm, normal heart sounds. Absent: systolic murmur, diastolic murmur, rubs, gallop GI/Abdominal exam: Present: soft. Absent: distended, tenderness, guarding, rebound, rigid, mass Extremities exam: Present: normal inspection, normal capillary refill. Absent: pedal edema, calf tenderness Back exam: Present: normal inspection. Absent: CVA tenderness (R), CVA tenderness (L) Neurological exam: Present: alert, oriented X3, CN II-XII intact. Absent: motor sensory deficit Skin exam: Present: warm, dry, intact, normal color. Absent: rash Course Vital Signs 09/17/20 20:44 Temperature 98.3 F Pulse Rate 86 Respiratory 18 Rate Blood Pressure 139/74 O2 Sat by Pulse 97 Oximetry EKG Findings - EKG Comments: EKG Findings:: There is a ventricular paced rhythm at 91 bpm. The ECG machine notes possible unspecified pacemaker failure. - EKG Results: EKG: interpreted by SHERI Medical Decision Making - Lab Data Result diagrams: 09/17/20 21:18 09/17/20 21:18 Lab Results 09/17/20 09/17/20 09/17/20 Range/Units 21:18 21:18 21:18 WBC 16.4 H (3.8-10.6) k/uL RBC 4.77 (3.80-5.40) m/uL Hgb 14.9 (11.4-16.0) gm/dL Hct 44.6 (34.0-46.0) % MCV 93.6 (80.0-100.0) fL MCH 31.3 (25.0-35.0) pg MCHC 33.5 (31.0-37.0) g/dL RDW 13.2 (11.5-15.5) % Plt Count 248 (150-450) k/uL MPV 9.2 Neutrophils % 80 % Lymphocytes % 12 % Monocytes % 5 % Eosinophils % 2 % Basophils % 1 % Neutrophils # 13.1 H (1.3-7.7) k/uL Lymphocytes # 2.0 (1.0-4.8) k/uL Monocytes # 0.8 (0-1.0) k/uL Eosinophils # 0.4 (0-0.7) k/uL Basophils # 0.1 (0-0.2) k/uL PT 12.0 (9.0-12.0) sec INR 1.1 (<1.2) APTT 20.0 L (22.0-30.0) sec Sodium 137 (137-145) mmol/L Potassium 4.2 (3.5-5.1) mmol/L Chloride 102 (98-107) mmol/L Carbon Dioxide 24 (22-30) mmol/L Anion Gap 11 mmol/L BUN 19 H (7-17) mg/dL Creatinine 1.10 H (0.52-1.04) mg/dL Est GFR (CKD-EPI)AfAm 52 (>60 ml/min/1.73 sqM) Est GFR (CKD-EPI)NonAf 45 (>60 ml/min/1.73 sqM) Glucose 186 H (74-99) mg/dL Calcium 8.9 (8.4-10.2) mg/dL Total Bilirubin 1.0 (0.2-1.3) mg/dL AST 26 (14-36) U/L ALT 11 (4-34) U/L Alkaline Phosphatase 118 (38-126) U/L Troponin I (0.000-0.034) ng/mL Total Protein 7.5 (6.3-8.2) g/dL Albumin 3.6 (3.5-5.0) g/dL 09/17/20 Range/Units 21:18 WBC (3.8-10.6) k/uL RBC (3.80-5.40) m/uL Hgb (11.4-16.0) gm/dL Hct (34.0-46.0) % MCV (80.0-100.0) fL MCH (25.0-35.0) pg MCHC (31.0-37.0) g/dL RDW (11.5-15.5) % Plt Count (150-450) k/uL MPV Neutrophils % % Lymphocytes % % Monocytes % % Eosinophils % % Basophils % % Neutrophils # (1.3-7.7) k/uL Lymphocytes # (1.0-4.8) k/uL Monocytes # (0-1.0) k/uL Eosinophils # (0-0.7) k/uL Basophils # (0-0.2) k/uL PT (9.0-12.0) sec INR (<1.2) APTT (22.0-30.0) sec Sodium (137-145) mmol/L Potassium (3.5-5.1) mmol/L Chloride (98-107) mmol/L Carbon Dioxide (22-30) mmol/L Anion Gap mmol/L BUN (7-17) mg/dL Creatinine (0.52-1.04) mg/dL Est GFR (CKD-EPI)AfAm (>60 ml/min/1.73 sqM) Est GFR (CKD-EPI)NonAf (>60 ml/min/1.73 sqM) Glucose (74-99) mg/dL Calcium (8.4-10.2) mg/dL Total Bilirubin (0.2-1.3) mg/dL AST (14-36) U/L ALT (4-34) U/L Alkaline Phosphatase (38-126) U/L Troponin I <0.012 (0.000-0.034) ng/mL Total Protein (6.3-8.2) g/dL Albumin (3.5-5.0) g/dL Disposition Clinical Impression: Syncope Disposition: ADMITTED IP TO THIS HOSP Condition: Good Is patient prescribed a controlled substance at d/c from ED?: No Referrals: Gary Villaseñor MD [Primary Care Provider] - 1-2 days
--- NOTE | 2020-09-17 21:42 | XR ---
EXAMINATION TYPE: XR chest 1V portable DATE OF EXAM: 09/17/2020 COMPARISON: NONE HISTORY: Syncope TECHNIQUE: Single view FINDINGS: There is no heart failure nor confluent pneumonic infiltrate. Costophrenic angles are clear . There is left axillary pacemaker. Thoracic aorta is atheromatous. There is no pleural effusion. IMPRESSION: No active cardiopulmonary disease. No change.
[2020-09-17 22:16] LABS: Basophils # (A) 0.1 k/uL (0-0.2); Basophils % (A) 1 %; Eosinophils # (A) 0.4 k/uL (0-0.7); Eosinophils % (A) 2 %; HCT 44.6 % (34.0-46.0); HGB 14.9 gm/dL (11.4-16.0); Lymphocytes % (A) 12 %; MCH 31.3 pg (25.0-35.0); MCHC 33.5 g/dL (31.0-37.0); MCV 93.6 fL (80.0-100.0); Mean Platelet Volume 9.2; Monocytes # (A) 0.8 k/uL (0-1.0); Monocytes % (A) 5 %; Neutrophils # (A) 13.1 k/uL (1.3-7.7); Neutrophils % (A) 80 %; Platelet Count 248 k/uL (150-450); RBC 4.77 m/uL (3.80-5.40); RDW 13.2 % (11.5-15.5); WBC 16.4 k/uL (3.8-10.6)
[2020-09-17 22:33] LABS: INR 1.1 (<1.2)
[2020-09-17 22:35] LABS: Albumin 3.6 g/dL (3.5-5.0); Calcium 8.9 mg/dL (8.4-10.2); Potassium 4.2 mmol/L (3.5-5.1); Total Protein 7.5 g/dL (6.3-8.2)
[2020-09-17] MEDS ORDERED: NITROGLYCERIN SL TABS 0.4 MG TAB SUBLINGUAL PRN (23:49)
[2020-09-18 05:10] LABS: Cholesterol 134 mg/dL (<200); HDL Cholesterol 41 mg/dL (40-60); LDL Cholesterol,Calculated 74 mg/dL (0-99); Triglycerides 97 mg/dL (<150)
[2020-09-18] MEDS ORDERED: LEVOTHYROXINE 75 MCG TAB PO SCH (06:30)
[2020-09-18] MEDS ORDERED: ATORVASTATIN 20 MG TAB PO SCH (09:00)
[2020-09-18] MEDS ORDERED: ASPIRIN 325 MG TAB PO SCH (09:00)
[2020-09-18] MEDS ORDERED: METOPROLOL SUCCINATE (ER) 25 MG TAB.ER.24H PO SCH (09:00)
[2020-09-18] MEDS ORDERED: lisinopriL 5 MG TAB PO SCH (09:00)
[2020-09-18] MEDS ORDERED: ASPIRIN 81 MG PO SCH (09:00)
[2020-09-18] MEDS ORDERED: CHOLECALCIFEROL 25 MCG (1000 IU) TABLET PO SCH (09:00)
[2020-09-18] MEDS ORDERED: FUROSEMIDE 40 MG TAB PO SCH (09:00)
[2020-09-18] MEDS ORDERED: APIXABAN 2.5 MG TABLET PO SCH (09:00)
[2020-09-18] MEDS ORDERED: SODIUM CHLORIDE 0.9% 1,000 ML IV SCH (12:00)
--- NOTE | 2020-09-18 12:28 | P.CRDCN ---
History of Present Illness Consult date: 09/18/20 History of present illness: HISTORY OF PRESENT ILLNESS: This is a 85-year-old female with a past medical history significant for coronary artery disease, congestive heart failure, atrial fibrillation, pacemaker insertion, hypertension, and hyperlipidemia. Patient follows with a Dr. Jaime out of [place]. We have been asked to see the patient in consultation for syncope. Patient examined at the bedside in the emergency room. This is the patient's fourth visit to the hospital over the past year secondary to syncope (previous visits included February 2020, March 2020, and June 2020). Each visit that the patient presents with syncope, she has been with her family for a holiday or a celebration and has had a syncopal episode while si tting at the table eating. Patient a repeat of previous syncopal episode yesterday. Patient states she was with her family for the and had finished eating dinner. She states she was sitting at the table with her family when she suddenly passed out. Patient denies feeling dizzy or lightheaded. She denies chest pain or pressure. She denies shortness of breath. EKG reveals ventricular paced rhythm Chest xray no active cardiopulmonary disease. Laboratory data: WBC 16.4. Hemoglobin 14.9. Platelet count 248. Sodium 137. Potassium 4.2. BUN 19. Creatinine 1.10. Troponin negative 3. Current home cardiac medications include lisinopril 5 mg daily, metoprolol succinate 25 mg daily, Lasix 20 mg daily, atorvastatin 20 mg daily, aspirin 81 mg daily, and Eliquis 2.5 mg twice a day Most recent echocardiogram obtained in June 2020 revealed ejection fraction 50-55%, mild aortic stenosis, mild mitral regurgitation, and mild tricuspid regurgitation Cardiac catheterization history: February 2020 at [facility] in [place] with Dr. Jaime revealing normal left main. 95% ostial occlusion of LAD. 100% mid LAD occlusion. Severely calcified LAD. Moderate disease of first diagonal. Moderate disease of signing diagonal. Normal-sized left circumflex with 70% in-stent restenosis. Mild diffuse disease of RCA. REVIEW OF SYSTEMS: At the time of my exam: CONSTITUTIONAL: Denies fever or chills. HEENT: Denies blurred vision, vision changes, or eye pain. Denies hemoptysis CARDIOVASCULAR: Denies chest pain. Denies orthopnea. Denies PND. Denies palpitations RESPIRATORY: Denies shortness of breath. GASTROINTESTINAL: Denies abdominal pain. Denies nausea or vomiting. HEMATOLOGIC: Denies bleeding disorders. GENITOURINARY: Denies any blood in urine. SKIN: Denies pruitis. Denies rash. PHYSICAL EXAM: VITAL SIGNS: Reviewed. GENERAL: Well-developed in no acute distress. HEENT: Head is normocephalic. Pupils are equal, round. Sclerae anicteric. Mucous membranes of the mouth are moist. Neck supple. No JVD or thyromegaly LUNGS: Respirations even and unlabored. Lungs essentially clear to auscultation bilaterally. HEART: Regular rate and rhythm. S1 and S2 heard. Systolic murmur noted. ABDOMEN: Soft. Nondistended. Nontender. EXTREMITIES: Normal range of motion. No clubbing or cyanosis. Peripheral pulses intact. No lower extremity edema NEUROLOGIC: Awake and alert. Oriented x 3. ASSESSMENT: Recurrent syncope Chronic persistent nature fibrillation, on long-term intake regulation with Eliquis Coronary artery disease with previous stent placement to circumflex History of biventricular pacemaker insertion Chronic diastolic congestive heart failure, currently euvolemic Hypertension Hyperlipidemia Diabetes mellitus PLAN: No need to repeat echocardiogram as this was performed in June 2020 Interrogate pacemaker ([employer]) Obtain orthostatic blood pressures Continue telemetry monitoring Further recommendations pending patient's course Nurse practitioner note has been reviewed by physician. Signing provider agrees with the documented findings, assessment, and plan of care. Past Medical History Past Medical History: Atrial Fibrillation, Diabetes Mellitus, Hypertension, Thyroid Disorder Additional Past Medical History / Comment(s): Congestive heart failure, pacemaker insertion, diabetes Melitus, hypertension and hypothyroid, History of Any Multi-Drug Resistant Organisms: None Reported Past Surgical History: Pacemaker Past Anesthesia/Blood Transfusion Reactions: No Reported Reaction Type of Cardiac Device: Unknown Device Placement Date:: September 2017 Past Psychological History: No Psychological Hx Reported Smoking Status: Never smoker Past Alcohol Use History: None Reported Past Drug Use History: None Reported - Past Family History Mother Family Medical History: Diabetes Mellitus, Renal Disease Father Additional Family Medical History / Comment(s): "Black lung and alcohol." Father worked in the [employer] industry. Medications and Allergies Home Medications Medication Instructions Recorded Confirmed Type Levothyroxine Sodium [Synthroid] 75 mcg PO DAILY 11/04/17 09/17/20 History Atorvastatin [Lipitor] 20 mg PO DAILY 02/22/18 09/17/20 History Apixaban [Eliquis] 2.5 mg PO BID 02/21/20 09/17/20 History Aspirin EC [Ecotrin Low Dose] 81 mg PO DAILY #30 tablet. 02/22/20 09/17/20 Rx lisinopriL [Zestril] 5 mg PO DAILY #30 tab 02/22/20 09/17/20 Rx Metoprolol Succinate (ER) [Toprol 25 mg PO DAILY 04/07/20 09/17/20 History XL] Furosemide [Lasix] 20 mg PO DAILY #0 07/11/20 09/17/20 Rx Cholecalciferol (Vitamin D3) 75 mcg PO DAILY 09/17/20 09/17/20 History [Vitamin D3 (3000 Iu)] Allergies Allergy/AdvReac Type Severity Reaction Status Date / Time No Known Allergies Allergy Verified 09/17/20 22:01 Physical Exam Vitals: Vital Signs Temp Pulse Pulse Pulse Pulse Resp BP 09/18/20 12:06 89 90 89 09/18/20 12:00 90 14 116/97 09/18/20 11:00 90 18 133/80 09/18/20 10:00 90 16 133/80 09/18/20 08:01 98.1 F 94 15 133/80 09/18/20 05:55 89 16 133/59 09/18/20 02:13 90 16 120/45 09/17/20 20:44 98.3 F 86 18 139/74 BP BP BP Pulse Ox 09/18/20 12:06 119/75 116/97 107/67 09/18/20 12:00 96 09/18/20 11:00 96 09/18/20 10:00 96 09/18/20 08:01 93 L 09/18/20 05:55 95 09/18/20 02:13 93 L 09/17/20 20:44 97 Intake and Output 09/17/20 09/18/20 09/18/20 22:59 06:59 14:59 Other: Weight 90.718 kg Results 09/17/20 21:18 09/17/20 21:18 Cardiac Enzymes 09/17/20 09/17/20 09/18/20 Range/Units 21:18 21:18 00:16 AST 26 (14-36) U/L Troponin I <0.012 <0.012 (0.000-0.034) ng/mL 09/18/20 Range/Units 03:05 AST (14-36) U/L Troponin I <0.012 (0.000-0.034) ng/mL Coagulation 09/17/20 Range/Units 21:18 PT 12.0 (9.0-12.0) sec APTT 20.0 L (22.0-30.0) sec Lipids 09/18/20 Range/Units 03:05 Triglycerides 97 (<150) mg/dL Cholesterol 134 (<200) mg/dL HDL Cholesterol 41 (40-60) mg/dL CBC 09/17/20 Range/Units 21:18 WBC 16.4 H (3.8-10.6) k/uL RBC 4.77 (3.80-5.40) m/uL Hgb 14.9 (11.4-16.0) gm/dL Hct 44.6 (34.0-46.0) % Plt Count 248 (150-450) k/uL Comprehensive Metabolic Panel 09/17/20 Range/Units 21:18 Sodium 137 (137-145) mmol/L Potassium 4.2 (3.5-5.1) mmol/L Chloride 102 (98-107) mmol/L Carbon Dioxide 24 (22-30) mmol/L BUN 19 H (7-17) mg/dL Creatinine 1.10 H (0.52-1.04) mg/dL Glucose 186 H (74-99) mg/dL Calcium 8.9 (8.4-10.2) mg/dL AST 26 (14-36) U/L ALT 11 (4-34) U/L Alkaline Phosphatase 118 (38-126) U/L Total Protein 7.5 (6.3-8.2) g/dL Albumin 3.6 (3.5-5.0) g/dL Current Medications Generic Name Dose Route Start Last Admin Trade Name Freq PRN Reason Stop Dose Admin Apixaban 2.5 mg 09/18/20 09:00 09/18/20 09:25 Apixaban 2.5 Mg Tablet PO 2.5 mg BID BRANDYN Administration Aspirin 81 mg 09/18/20 09:00 09/18/20 09:22 Aspirin 81 Mg PO Not Given DAILY [facility] Atorvastatin Calcium 20 mg 09/18/20 09:00 09/18/20 09:28 Atorvastatin 20 Mg Tab PO 20 mg DAILY [facility] Administration Cholecalciferol 75 mcg 09/18/20 09:00 09/18/20 09:24 Cholecalciferol 25 Mcg (1000 Iu) Tablet PO 75 mcg DAILY [facility] Administration Sodium Chloride 1,000 mls @ 75 mls/hr 09/18/20 12:00 Saline 0.9% IV .[id number] [facility] Levothyroxine Sodium 75 mcg 09/18/20 06:30 09/18/20 05:54 Levothyroxine 75 Mcg Tab PO 75 mcg DAILY@0630 [facility] Administration Lisinopril 5 mg 09/18/20 09:00 09/18/20 09:25 Lisinopril 5 Mg Tab PO 5 mg DAILY [facility] Administration Metoprolol Succinate 25 mg 09/18/20 09:00 09/18/20 09:25 Metoprolol Succinate (Er) 25 Mg Tab.Er.24h PO 25 mg DAILY [facility] Administration Nitroglycerin 0.4 mg 09/17/20 23:49 Nitroglycerin Sl Tabs 0.4 Mg Tab SUBLINGUAL Q5M PRN Chest Pain Sodium Chloride 10 ml 09/18/20 09:00 09/18/20 09:26 Sodium Chloride 0.9% Flush 10 Ml Syringe IV 10 ml BID [facility] Administration Intake and Output 09/17/20 09/18/20 09/18/20 22:59 06:59 14:59 Other: Weight 90.718 kg 09/17/20 21:18 09/17/20 21:18
[2020-09-18 13:45] VITALS: PULSE 90
[2020-09-18 14:54] LABS: Appearance,Urine Cloudy (Clear); Bacteria,Urine Many /hpf; Bilirubin,Urine Negative (Negative); Blood,Urine Negative (Negative); Color,Urine Yellow; Glucose,Urine (UA) Negative (Negative); Hyaline Casts,Urine 7 /lpf (0-2); Ketones,Urine Negative (Negative); Leukocyte Esterase,Urine Moderate (Negative); Mucus,Urine Occasional /hpf; Nitrite,Urine Negative (Negative); Protein,Urine Negative (Negative); RBC,Urine 1 /hpf (0-5); Squamous Epithelial Cell,Urine <1 /hpf (0-4); WBC,Urine 12 /hpf (0-5)
[2020-09-18 15:40] VITALS: BP 122/73; RESP 16; TEMP 98
--- NOTE | 2020-09-19 22:43 | P.HPIM ---
History of Present Illness H&P Date: 09/18/20 Chief Complaint: Past out History of presenting complaint: This is a pleasant 85-year-old patient of Dr. Gary Villaseñor. Follows with cardiology is out of area. Chronic stable medical conditions include atrial fibrillation, diabetes, hypertension, hypothyroid, CHF, ,. Normally uses a walker. Patient sitting of the [facility] stable with the family when she simply passed out. There was no seizure activity noted. No tongue biting or incontinence. She looks slightly funny before she passed out. Slightly green in color. She did receive about 10 chest compressions. In the ER she was back to her normal self. Patient has similar episode in June. Review of systems: GEN.: None EYES: None HEENT: None NECK: None RESPIRATORY: None CARDIOVASCULAR: None GASTROINTESTINAL: None GENITOURINARY: None MUSCULOSKELETAL: Joint pains LYMPHATICS: None HEMATOLOGICAL: None PSYCHIATRY: None NEUROLOGICAL: As above Past medical history to include: Atrial fibrillation, diabetes, hypertension, hypothyroid, congestive heart failure, pacemaker Social history: No history of smoking or alcohol. This was assessed to the nephew. Does use a walker. Physical examination: VITAL SIGNS: 98.1, 94, 15, 1 33 x 80, 93% on room air GENERAL: BMI 33.3, reclining in bed, comfortable. EYES: Pupils equal. Conjunctiva normal. HEENT: External appearance of nose and ears normal, oral cavity grossly normal. NECK: JVD not raised; masses not palpable. HEART: First and second heart sounds are normal; no edema. LUNGS: Respiratory rate normal; clear to auscultation. ABDOMEN: Soft, nontender, liver spleen not palpable, no masses palpable. PSYCH: Alert and oriented x3; mood and affect normal. MUSCULOSKELETAL: Evidence of OA NEUROLOGICAL: Cranial nerves grossly intact; no facial asymmetry, power and sensation grossly intact. LYMPHATICS: No lymph nodes palpable in the axilla and neck INVESTIGATIONS, reviewed in the clinical context: White count 16.4 hemoglobin 14.9 platelets 248 potassium 4.2 creatinine 1.10 LDL 74 Troponin I 3 negative EKG tracing personally reviewed by me-ventricle paced rhythm Chest x-ray film personally reviewed by me-cardiomegaly. Some chronic changes Assessment and plan: -Syncope: Episode of sitting on the dining table passing out. No seizure activity noted. No focal signs. No cardiac symptoms. Possible underlying arrhythmia. [employer] cardiology. telemetry. -Persistent atrial fibrillation Continue with telemetry. On eliquis -Essential hypertension Continue with Toprol-XL -Hyperlipidemia Continue with Lipitor -Hypothyroid Continue with Synthroid Placed on telemetry. Home medications continued. Cardiology consulted. Pacemaker to be interrogated. Past Medical History Past Medical History: Atrial Fibrillation, Diabetes Mellitus, Hypertension, Thyroid Disorder Additional Past Medical History / Comment(s): Congestive heart failure, pacema ker insertion, diabetes Melitus, hypertension and hypothyroid, History of Any Multi-Drug Resistant Organisms: None Reported Past Surgical History: Pacemaker Past Anesthesia/Blood Transfusion Reactions: No Reported Reaction Type of Cardiac Device: Unknown Device Placement Date:: September 2017 Past Psychological History: No Psychological Hx Reported Smoking Status: Never smoker Past Alcohol Use History: None Reported Past Drug Use History: None Reported - Past Family History Mother Family Medical History: Diabetes Mellitus, Renal Disease Father Additional Family Medical History / Comment(s): "Black lung and alcohol." Father worked in the [employer] industry. Medications and Allergies Home Medications Medication Instructions Recorded Confirmed Type Levothyroxine Sodium [Synthroid] 75 mcg PO DAILY 11/04/17 09/17/20 History Atorvastatin [Lipitor] 20 mg PO DAILY 02/22/18 09/17/20 History Apixaban [Eliquis] 2.5 mg PO BID 02/21/20 09/17/20 History Aspirin EC [Ecotrin Low Dose] 81 mg PO DAILY #30 tablet. 02/22/20 09/17/20 Rx lisinopriL [Zestril] 5 mg PO DAILY #30 tab 02/22/20 09/17/20 Rx Metoprolol Succinate (ER) [Toprol 25 mg PO DAILY 04/07/20 09/17/20 History XL] Furosemide [Lasix] 20 mg PO DAILY #0 07/11/20 09/17/20 Rx Cholecalciferol (Vitamin D3) 75 mcg PO DAILY 09/17/20 09/17/20 History [Vitamin D3 (3000 Iu)] Allergies Allergy/AdvReac Type Severity Reaction Status Date / Time No Known Allergies Allergy Verified 09/17/20 22:01 Physical Exam Vitals: Vital Signs Temp Pulse Resp BP Pulse Ox 09/18/20 08:01 98.1 F 94 15 133/80 93 L 09/18/20 05:55 89 16 133/59 95 04/05/21 02:13 90 16 120/45 93 L 09/17/20 20:44 98.3 F 86 18 139/74 97 Intake and Output 09/17/20 09/18/20 09/18/20 22:59 06:59 14:59 Other: Weight 90.718 kg Results CBC & Chem 7: 09/17/20 21:18 09/17/20 21:18 Labs: Abnormal Lab Results - Last 24 Hours (Table) 09/17/20 09/17/20 09/17/20 Range/Units 21:18 21:18 21:18 WBC 16.4 H (3.8-10.6) k/uL Neutrophils # 13.1 H (1.3-7.7) k/uL APTT 20.0 L (22.0-30.0) sec BUN 19 H (7-17) mg/dL Creatinine 1.10 H (0.52-1.04) mg/dL Glucose 186 H (74-99) mg/dL
--- NOTE | 2020-09-19 22:46 | P.DS ---
Providers Date of admission: 09/17/20 23:49 Expected date of discharge: 09/18/20 Attending physician: Timmy Mark Consults: 09/17/20 23:49 Consult Physician Routine Consulting Provider: Be Maxwell Consult Reason/Comments: syncope. Possible pacemaker failure Do you want consulting provider notified?: Yes Primary care physician: Gary Mccallum [facility] Course: Chief Complaint: Past out History of presenting complaint: This is a pleasant 85-year-old patient of Dr. Gary Villaseñor. Follows with cardiology is out of area. Chronic stable medical conditions include atrial fibrillation, diabetes, hypertension, hypothyroid, CHF, ,. Normally uses a walker. Patient sitting of the [facility] stable with the family when she simply passed out. There was no seizure activity noted. No tongue biting or incontinence. She looks slightly funny before she passed out. Slightly green in color. She did receive about 10 chest compressions. In the ER she was back to her normal self. Patient has similar episode in June. Troponins are negative. Telemetry did not reveal any arrhythmia. Pacemaker interrogated by cardiology. No new findings. Cleared to go home. 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 Orthostatics was ruled out Consultation: [facility] Past medical history to include: Atrial fibrillation, diabetes, hypertension, hypothyroid, congestive heart failure, pacemaker Social history: No history of smoking or alcohol. This was assessed to the nephew. Does use a walker. Physical examination: VITAL SIGNS: 98, 90, 16, 1 22 x 73, 98% room air GENERAL: BMI 33.3, reclining in bed, comfortable. EYES: Pupils equal. Conjunctiva normal. HEENT: External appearance of nose and ears normal, oral cavity grossly normal. NECK: JVD not raised; masses not palpable. HEART: First and second heart sounds are normal; no edema. LUNGS: Respiratory rate normal; clear to auscultation. ABDOMEN: Soft, nontender, liver spleen not palpable, no masses palpable. PSYCH: Alert and oriented x3; mood and affect normal. MUSCULOSKELETAL: Evidence of OA NEUROLOGICAL: Cranial nerves grossly intact; no facial asymmetry, power and sensation grossly intact. LYMPHATICS: No lymph nodes palpable in the axilla and neck INVESTIGATIONS, reviewed in the clinical context: White count 16.4 hemoglobin 14.9 platelets 248 potassium 4.2 creatinine 1.10 LDL 74 Troponin I 3 negative EKG tracing personally reviewed by me-ventricle paced rhythm Chest x-ray film personally reviewed by me-cardiomegaly. Some chronic changes UA positive Assessment and plan: -Syncope: Episode of sitting on the dining table passing out. No seizure activity noted. No focal signs. No cardiac symptoms. Possible underlying arrhythmia. 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 telemetry. -Persistent atrial fibrillation Continue with telemetry. On eliquis -Essential hypertension Continue with Toprol-XL -Hyperlipidemia Continue with Lipitor -Hypothyroid Continue with Synthroid -Acute UTI with cystitis We'll treat with 3 day course of Keflex. Medications will be called in Disposition: Home Patient Condition at Discharge: Good Plan - Discharge Summary New Discharge Prescriptions: Continue Levothyroxine Sodium [Synthroid] 75 mcg PO DAILY Atorvastatin [Lipitor] 20 mg PO DAILY Apixaban [Eliquis] 2.5 mg PO BID Aspirin EC [Ecotrin Low Dose] 81 mg PO DAILY #30 tablet. lisinopriL [Zestril] 5 mg PO DAILY #30 tab Metoprolol Succinate (ER) [Toprol XL] 25 mg PO DAILY Furosemide [Lasix] 20 mg PO DAILY #0 Cholecalciferol (Vitamin D3) [Vitamin D3 (3000 Iu)] 75 mcg PO DAILY Discharge Medication List Levothyroxine Sodium [Synthroid] 75 mcg PO DAILY 11/04/17 [History] Atorvastatin [Lipitor] 20 mg PO DAILY 02/22/18 [History] Apixaban [Eliquis] 2.5 mg PO BID 02/21/20 [History] Aspirin EC [Ecotrin Low Dose] 81 mg PO DAILY #30 tablet. 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
== END 2020-09-18 15:52 | disposition home or self-care (01) ==
LOC: EC 20:39 → 6NMEDSUR 23:49
PROVIDERS: ADMIT Hospitalist; ATTEND Hospitalist
DX: R55 Syncope and collapse (principal); N30.00 Acute cystitis without hematuria; E11.9 Type 2 diabetes mellitus without complications; I11.0 Hypertensive heart disease with heart failure; I50.32 Chronic diastolic (congestive) heart failure; I48.19 Other persistent atrial fibrillation; I08.3 Combined rheumatic disorders of mitral, aortic and tricuspid valves; I25.10 Atherosclerotic heart disease of native coronary artery without angina pectoris; E03.9 Hypothyroidism, unspecified; E78.5 Hyperlipidemia, unspecified; Z79.890 Hormone replacement therapy; Z79.01 Long term (current) use of anticoagulants; Z79.82 Long term (current) use of aspirin; Z79.899 Other long term (current) drug therapy; Z95.0 Presence of cardiac pacemaker; Z95.5 Presence of coronary angioplasty implant and graft; Z83.3 Family history of diabetes mellitus; Z81.1 Family history of alcohol abuse and dependence; Z83.6 Family history of other diseases of the respiratory system; Z84.1 Family history of disorders of kidney and ureter
CPT/HCPCS: 99285; 93005 ×2; 80061; 80053; 84484 ×2; 85025; 85610; 85730; 81001; 87086; 87635; 71045; G0378; 87077; 87186